=== PATIENT | male | born 1985 | race Caucasian/White ===

== ENCOUNTER 2017-08-26 05:46 | Inpatient (IN) | payer OTHER ==
[2017-08-22 12:01] VITALS: BMI 25.4
[2017-08-26] MEDS ORDERED: Bupivacaine HCl 0.25% PF (10 ml) Inj ONE (07:38)
[2017-08-26] MEDS ORDERED: Lidocaine 1% Inj (20ml) ONE (07:38)
[2017-08-26] MEDS ORDERED: Lactated Ringer's 1,000 ML IV ONE ×3 (07:45→10:45)
[2017-08-26] MEDS ORDERED: Midazolam 2 MG/2 ML VIAL ONE (07:49)
[2017-08-26] MEDS ORDERED: Lidocaine Hydrochloride 5 ML INJ ONE (07:49)
[2017-08-26] MEDS ORDERED: Propofol 10 mg/ml Inj (20 ML) ONE (07:49)
[2017-08-26] MEDS ORDERED: ceFAZolin IV 1 gm in Dextrose 1 GM/50 ML BAG IVPB ONE ×2 (08:25→11:56)
[2017-08-26] MEDS ORDERED: Phenylephrine 10 mg/ml Inj ONE (09:08)
[2017-08-26] MEDS ORDERED: ePHEDrine 50 mg/ml Inj ONE (09:08)
[2017-08-26] MEDS ORDERED: Bacitracin Ointment 30 GM TUBE ONE (09:27)
[2017-08-26] MEDS ORDERED: Neostigmine Methylsulfate 3mg/3ml Syringe IV ONE (10:30)
[2017-08-26] MEDS ORDERED: Bupivacaine 0.5% Inj(30mL) ONE (11:50)
--- NOTE | 2017-08-26 12:22 | PCM.SURG1 ---
Surgeon's Initial Post Op Note - Surgeon's Notes Surgeon: Dr. Abbott Textile Pin Worker: Chance Márquez PGY-3, Derrick Lopez PGY-3, Kvng Ac PGY-3 Type of Anesthesia: General LMA, Local Anesthesia Administered By: Dr. Cortez Pre-Operative Diagnosis: Right lower extremity Charcot deformity with equinus Operative Findings: See dictation Post-Operative Diagnosis: Same Operation Performed: #1. Right foot gastroc recession. #2. Right foot charcot reconstruction. #3. Right foot bone graft application. #4. RLE External fixator application Specimen/Specimens Removed: Right foot bone and soft tissue Estimated Blood Loss: EBL {In ML}: 30 Blood Products Given: N/A Drains Used: No Drains Post-Op Condition: Good Date of Surgery/Procedure: 08/26/17 Time of Surgery/Procedure: 08:00
[2017-08-26] MEDS ORDERED: HYDROmorphone 0.5 mg/0.5 ml ISec IVP PRN (13:14)
--- NOTE | 2017-08-26 14:03 | RAD ---
PROCEDURE: Right Ankle Radiographs. HISTORY: s/p Right ankle sx COMPARISON: None FINDINGS: BONES: There is an external fixation device overlying the distal tibia and foot. The device obscures the midfoot. JOINTS: Normal. No osteoarthritis. Ankle mortise maintained. Talar dome intact SOFT TISSUES: Normal. OTHER FINDINGS: None. IMPRESSION: There is an external fixation device overlying the distal tibia and foot. The device obscures the midfoot.
--- NOTE | 2017-08-26 14:09 | RAD ---
PROCEDURE: Fluoroscopy up to 1 hour HISTORY: CHRONIC CHARCOT RT FOOT DEFORMITY COMPARISON: TECHNIQUE: Fluoroscopy was provided in the operating room. 41.3 seconds of fluoro time were utilized. Fourteen images were submitted FINDINGS: The study shows placement of an external fixation device for treatment of severe chronic Charcot foot IMPRESSION: As above
--- NOTE | 2017-08-26 14:13 | RAD ---
PROCEDURE: Right Foot Radiographs. HISTORY: s/p Right foot sx COMPARISON: None. FINDINGS: BONES: There is an external fixation device around the foot which partially obscures the foot. There is a chronic Charcot deformity JOINTS: As above SOFT TISSUES: Normal. OTHER FINDINGS: None. IMPRESSION: There is an external fixation device around the foot which partially obscures the foot. There is a chronic Charcot deformity
[2017-08-26] MEDS ORDERED: Glucagon Recombinant 1 mg Inj IM PRN (14:47)
[2017-08-26] MEDS ORDERED: Dextrose 50% SYRINGE Inj (50 ml) IVP PRN (14:47)
[2017-08-26] MEDS ORDERED: Lactated Ringer's 500 ML IV ONE (16:00)
[2017-08-26] MEDS: (Novolog) Insulin Aspart, Recombinant 100 u/ml 10 ml vial SC SCH ×2 (16:30→22:49)
--- NOTE | 2017-08-26 17:12 | CP.PCM.HP ---
History of Present Illness - History of Present Illness History of Present Illness: CC: Hemostasis management S/p Right foot gastroc recession, Right foot charcot reconstruction, Right foot bone graft application, RLE External fixator application HPI: Patient is a 32 year old with past medical history of Type 1 DM who was admitted s/p Right foot gastroc recession, Right foot charcot reconstruction, Right foot bone graft application, RLE External fixator application, POD #1 for hemostasis and medical care. Patient was seen after his procedure in the PACU. Patient reports appropriate pain as he is status post surgical intervention. Patient denies chest pain, palpitations, SOB, dizziness, nausea, vomiting, right leg numbness and tingling. PMHx: Type 1 DM (Diagnosed at age 19) PSHx: Right foot diabetic ulcer FHx: Diabetes Medications: Insulin Glargine, Human recombination 10 unit SC BID, Lispro sliding scale, Vasotec 2.5mg pi daily, protonix 40mg po daily Allergies: NKDA Social Hx: unemployed, lives with family. Smoker (1/2 ppd, for many years, unable to recollect how many years), occasional marijuana use and denies ETOH use Present on Admission - Present on Admission Any Indicators Present on Admission: No Review of Systems - Constitutional Constitutional: absent: Chills, Fever - EENT Eyes: absent: Blurred Vision Ears: absent: Dizziness - Cardiovascular Cardiovascular: absent: Chest Pain, Dyspnea, Leg Edema, Lightheadedness, Palpitations - Respiratory Respiratory: absent: Cough, Wheezing - Gastrointestinal Gastrointestinal: absent: Abdominal Pain, Nausea, Vomiting - Neurological Neurological: absent: Dizziness, Numbness, Headaches, Paresthesias, Weakness - Endocrine Endocrine: absent: Palpitations Past Patient History - Past Medical History & Family History Past Medical History?: Yes - Past Social History Smoking Status: Current Some Days Smoker - CARDIAC Hx Cardiac Disorders: No - PULMONARY Hx Respiratory Disorders: No - NEUROLOGICAL Hx Neurological Disorder: No - HEENT Hx HEENT Problems: No - RENAL Hx Chronic Kidney Disease: No - ENDOCRINE/METABOLIC Hx Endocrine Disorders: Yes Hx Diabetes Mellitus Type 1: Yes - HEMATOLOGICAL/ONCOLOGICAL Hx Blood Disorders: No - INTEGUMENTARY Hx Dermatological Problems: Yes Other/Comment: diabetic lt foot ulcer - MUSCULOSKELETAL/RHEUMATOLOGICAL Hx Musculoskeletal Disorders: Yes Other/Comment: HX: RIGHT FOOT CHARCOT - GASTROINTESTINAL Hx Gastrointestinal Disorders: No Other/Comment: HX: NAUSEA FROM PAIN MED. - GENITOURINARY/GYNECOLOGICAL Hx Genitourinary Disorders: No - PSYCHIATRIC Hx Psychophysiologic Disorder: No Hx Substance Use: Yes - SURGICAL HISTORY Hx Surgeries: Yes Other/Comment: DEBRIDEMENT OF RIGHT FOOT WOUNDS X2-BOTTOM OF FOOOT AND OUTER SIDE OF FOOT. - ANESTHESIA Hx Anesthesia: Yes Hx Anesthesia Reactions: No Hx Malignant Hyperthermia: No Has any member of the family had a problem w/ anesthesia?: No Meds Allergies/Adverse Reactions: Allergies Allergy/AdvReac Type Severity Reaction Status Date / Time No Known Allergies Allergy Verified 08/22/17 12:01 Physical Exam - Head Exam Head Exam: ATRAUMATIC - Eye Exam Eye Exam: EOMI, Normal appearance - Respiratory Exam Respiratory Exam: Clear to Auscultation Bilateral, NORMAL BREATHING PATTERN - Cardiovascular Exam Cardiovascular Exam: REGULAR RHYTHM, +S1, +S2 - Extremities Exam Extremities exam: Positive for: tenderness Additional comments: S/p Right foot gastroc recession, Right foot charcot reconstruction, Right foot bone graft application, RLE External fixator application, POD #1. Dressing and entrapment in place. dressing is clean, dry and intact - Neurological Exam Neurological exam: Alert, Oriented x3 - Psychiatric Exam Psychiatric exam: Normal Affect, Normal Mood - Skin Skin Exam: Normal Color Results - Vital Signs Recent Vital Signs: Last Vital Signs Temp 97.0 F L 08/26/17 12:17 Pulse 99 H 08/26/17 16:00 Resp 15 08/26/17 16:00 BP 146/90 08/26/17 16:00 Pulse Ox 100 08/26/17 16:00 - Labs Labs: Laboratory Results - last 24 hr 08/26/17 08/26/17 06:31 16:25 POC Glucose (mg/dL) 173 H 246 H Assessment & Plan (1) Status post right foot surgery Assessment and Plan: Fur Glosser, Dr. Márquez---> on board Charcot foot S/p Right foot gastroc recession, Right foot charcot reconstruction, Right foot bone graft application, RLE External fixator application, POD #1 Medication/Management: * Percocet 1 tab PO Q4H PRN and 2 tab PO Q4H PRN * Podiatry team for daily dressing Status: Acute (2) Type 1 diabetes mellitus Assessment and Plan: Accuchecks Lantus 10 units SC Q12H Novolog 4 unit SC ACHS Hypoglycemia protocol Vasotec 2.5mg PO daily Status: Acute (3) Prophylactic measure Assessment and Plan: GI: Protonix 40mg po daily DVT: Eliquis 5mg po daily Heart healthy diabetic diet PT Status: Acute
[2017-08-26] MEDS: Oxycodone/Acetaminophen 5/325 mg Tab PO PRN ×2 (18:06→21:25)
[2017-08-26] MEDS: (Lantus) Insulin Glargine, Recombinant SC SCH (21:25)
[2017-08-27 08:26] LABS: BASO % 0.2 % (0.0-2.0); EOS # 0.1 K/uL (0.0-0.7); EOS % 0.9 % (0.0-4.0); HEMATOCRIT 33.2 % (35.0-51.0); LYMPH % 23.5 % (20.0-40.0); MEAN CORPUSCULAR HEMOGLOBIN 27.1 pg (27.0-31.0); MEAN CORPUSCULAR HGB CONC 33.1 g/dL (33.0-37.0); MONO # 0.8 K/uL (0.0-0.8); NRBC % 0.1 % (0.0-2.0); RED CELL DISTRIBUTION WIDTH 17.1 % (11.5-14.5); WHITE BLOOD COUNT 8.4 K/uL (4.8-10.8)
[2017-08-27] MEDS: (Novolog) Insulin Aspart, Recombinant 100 u/ml 10 ml vial SC SCH ×4 (09:07→22:38)
[2017-08-27 09:20] LABS: ALB/GLOB RATIO 0.7 (1.0-2.1); ALKALINE PHOSPHATASE 129 U/L (38-126); ALT/SGPT 25 U/L (21-72); AST/SGOT 18 U/L (17-59); BILIRUBIN,TOTAL 0.5 mg/dL (0.2-1.3); BLOOD UREA NITROGEN 15 mg/dL (9-20); CALCIUM 8.1 mg/dl (8.6-10.4); CARBON DIOXIDE 25 mmol/L (22-30); CHLORIDE 99 mmol/L (98-107); GFR AFRICAN-AMERICAN > 60; GLUCOSE,RANDOM 116 mg/dL (75-110); MAGNESIUM 1.7 mg/dL (1.6-2.3); PHOSPHOROUS 3.6 mg/dL (2.5-4.5); POTASSIUM 4.1 mmol/L (3.6-5.2); SODIUM 131 mmol/L (132-148); TOTAL PROTEIN 8.5 g/dL (6.3-8.3)
[2017-08-27] MEDS: (Lantus) Insulin Glargine, Recombinant SC SCH ×2 (10:08→22:37)
[2017-08-27] MEDS: Pantoprazole 40 mg EC Tab PO SCH (10:08)
[2017-08-27] MEDS: Oxycodone/Acetaminophen 5/325 mg Tab PO PRN ×4 (10:13→22:39)
[2017-08-27] MEDS ORDERED: Tramadol 25 mg PO PRN ×3 (11:01→13:38)
--- NOTE | 2017-08-27 11:31 | CP.PCM.PN ---
Subjective - Date & Time of Evaluation Date of Evaluation: 08/27/17 Time of Evaluation: 10:35 - Subjective Subjective: Podiatry Progress Note- Dr. Tavarez This is a 32 yo diabetic male pt seen at bedside this AM POD#1 RLE gastroc recession and charcot reconstruction w/ application of external fixator frame. Pt is seen resting comfortably in bed at time of visit with RLE elevated on pillows. Pt denies any acute overnight events. Pain controlled with ultram. Denies fever however did have 1 read of low grade fever overnight (resolved). Denies n/v/c/sob/cp/weakness/dizziness or calf pain. Tolerating diet. Offers no other complaints. Objective - Vital Signs/Intake and Output Vital Signs (last 24 hours): Temp Pulse Resp BP Pulse Ox 97.7 F 89 20 141/87 97 08/27/17 07:20 08/27/17 07:20 08/27/17 07:20 08/27/17 10:08 08/27/17 07:20 Intake and Output: 08/27/17 08/27/17 06:59 18:59 Output Total 900 Balance -900 - Medications Medications: Current Medications Acetaminophen (Tylenol 325mg Tab) 650 mg PO Q6 PRN PRN Reason: Pain, Mild (1-3) Last Admin: 08/26/17 16:38 Dose: 650 mg Apixaban (Eliquis) 2.5 mg PO Q12H [facility] Last Admin: 08/27/17 09:06 Dose: 2.5 mg Dextrose (Dextrose 50% Inj) 0 ml IVP .STAT PRN; Protocol PRN Reason: Hypoglycemia Protocol Dextrose (Glutose 15) 0 gm PO .ONCE PRN; Protocol PRN Reason: Hypoglycemia Protocol Enalapril Maleate (Vasotec) 2.5 mg PO DAILY [facility] Last Admin: 08/27/17 10:08 Dose: 2.5 mg Glucagon (Glucagen Diagnostic Kit) 0 mg IM .STAT PRN; Protocol PRN Reason: Hypoglycemia Protocol Dextrose (Dextrose 5% In Water 1000 Ml) 1,000 mls @ 0 mls/hr IV .Q0M PRN; Protocol; Per Protocol PRN Reason: Hypoglycemia Protocol Insulin Aspart (Novolog) 4 unit SC ACHS [facility] Last Admin: 08/27/17 09:07 Dose: 4 unit Insulin Glargine (Lantus) 10 unit SC Q12 [facility] Last Admin: 08/27/17 10:08 Dose: 10 units Ondansetron HCl (Zofran Inj) 4 mg IVP Q6H PRN PRN Reason: Nausea/Vomiting Pantoprazole Sodium (Protonix Ec Tab) 40 mg PO DAILY [facility] Last Admin: 08/27/17 10:08 Dose: 40 mg Pneumococcal Polyvalent Vaccine (Pneumovax 23 Vaccine) 0.5 ml IM .ONCE ONE Stop: 08/29/17 10:01 Tramadol HCl (Ultram) 50 mg PO PRN PRN PRN Reason: Pain, moderate (4-7) - Labs Labs: 08/27/17 08:13 08/27/17 08:13 - Constitutional Appears: Well, Non-toxic, No Acute Distress - Extremities Exam Additional comments: RLE focused exam: Dressings are c/d/i with external fixator in place, slight sanguinous drainage noted upon removal of bandage, no active bleeding VASC- pedal pulses palpable, skin temp runs warm to cool (proximal to distal), cap refill < 3 sec to all digits, moderate pedal edema NEURO- pedal sensation is grossly diminished DERM- pin sites appear clean with minimal drainage, no erythema, no callor, no areas of fluctuance ORTHO- tenderness on palpation of all pins sites and posterior aspect of heel - Neurological Exam Neurological Exam: Alert, Awake, Oriented x3 - Psychiatric Exam Psychiatric exam: Normal Affect, Normal Mood Assessment and Plan - Assessment and Plan (Free Text) Assessment: 32 you diabetic male pt POD#1 RLE gastroc recession and charcot reconstruction w / application of external fixator frame Plan: Pt S&E at bedside Chart, labs and vitals reviewed Pin sites inspected, dressing changed with xeroform to pin sites, 4x4's, ABD, kerlix, ROGER bandages Strict NWB to RLE PT eval ordered, will f/u rec's c/w Tylenol and Ultram for pain Elevate RLE and ice Case management consult placed for discharge planning to [facility] per podiatry
[2017-08-27] MEDS ORDERED: Oxycodone/Acetaminophen 5/325 mg Tab PO PRN (15:16)
--- NOTE | 2017-08-27 15:59 | CP.PCM.PN ---
Subjective - Date & Time of Evaluation Date of Evaluation: 08/27/17 Time of Evaluation: 07:00 - Subjective Subjective: Progress note for Dr. Espino Patient seen and examined at bedside. No acute events overnight. Patient states he tolerated the procedure well and still would like more pain medication. Patient stated that the tramadol helped. it was explained to the patient that podiatry team will manage the pain medication. Patient denies any fever, or chills, or abdominal pain. upon rounding with attending, patient was able to ambulate with physical therapy Objective - Vital Signs/Intake and Output Vital Signs (last 24 hours): Temp Pulse Resp BP Pulse Ox 97.9 F 82 18 102/68 99 08/27/17 15:25 08/27/17 15:25 08/27/17 15:25 08/27/17 15:25 08/27/17 15:25 Intake and Output: 08/27/17 08/27/17 06:59 18:59 Intake Total 480 Output Total 900 Balance -900 480 - Medications Medications: Current Medications Acetaminophen (Tylenol 325mg Tab) 650 mg PO Q6 PRN PRN Reason: Pain, Mild (1-3) Last Admin: 08/26/17 16:38 Dose: 650 mg Apixaban (Eliquis) 2.5 mg PO Q12H [facility] Last Admin: 08/27/17 09:06 Dose: 2.5 mg Dextrose (Dextrose 50% Inj) 0 ml IVP .STAT PRN; Protocol PRN Reason: Hypoglycemia Protocol Dextrose (Glutose 15) 0 gm PO .ONCE PRN; Protocol PRN Reason: Hypoglycemia Protocol Enalapril Maleate (Vasotec) 2.5 mg PO DAILY [facility] Last Admin: 08/27/17 10:08 Dose: 2.5 mg Glucagon (Glucagen Diagnostic Kit) 0 mg IM .STAT PRN; Protocol PRN Reason: Hypoglycemia Protocol Dextrose (Dextrose 5% In Water 1000 Ml) 1,000 mls @ 0 mls/hr IV .Q0M PRN; Protocol; Per Protocol PRN Reason: Hypoglycemia Protocol Insulin Aspart (Novolog) 4 unit SC ACHS [facility] Last Admin: 08/27/17 13:17 Dose: 4 unit Insulin Glargine (Lantus) 10 unit SC Q12 [facility] Last Admin: 08/27/17 10:08 Dose: 10 units Ondansetron HCl (Zofran Inj) 4 mg IVP Q6H PRN PRN Reason: Nausea/Vomiting Oxycodone/Acetaminophen (Percocet 5/325 Mg Tab) 1 tab PO Q4H PRN PRN Reason: Pain, moderate (4-7) Stop: 08/30/17 15:17 Oxycodone/Acetaminophen (Percocet 5/325 Mg Tab) 2 tab PO Q4H PRN PRN Reason: Pain, severe (8-10) Stop: 08/30/17 15:17 Last Admin: 08/27/17 15:32 Dose: 2 tab Pantoprazole Sodium (Protonix Ec Tab) 40 mg PO DAILY [facility] Last Admin: 08/27/17 10:08 Dose: 40 mg Pneumococcal Polyvalent Vaccine (Pneumovax 23 Vaccine) 0.5 ml IM .ONCE ONE Stop: 08/29/17 10:01 - Labs Labs: 08/27/17 08:13 08/27/17 08:13 - Constitutional Appears: Non-toxic - Eye Exam Eye Exam: EOMI, Normal appearance - ENT Exam ENT Exam: Mucous Membranes Moist - Neck Exam Neck Exam: Full ROM - Respiratory Exam Respiratory Exam: Wheezes - Cardiovascular Exam Cardiovascular Exam: +S1, +S2. absent: Bradycardia, Tachycardia - GI/Abdominal Exam GI & Abdominal Exam: Soft. absent: Tenderness - Extremities Exam Extremities Exam: absent: Full ROM, Pedal Edema Additional comments: right leg fixation patient was able to ambulate with physical therapy Assessment and Plan - Assessment and Plan (Free Text) Assessment: (1) Status post right foot surgery Assessment and Plan: Mobile Unit Assistant, Dr. Márquez---> on board Charcot foot S/p Right foot gastroc recession, Right foot charcot reconstruction, Right foot bone graft application, RLE External fixator application, POD #1 Medication/Management: * Percocet 1 tab PO Q4H PRN and 2 tab PO Q4H PRN * Podiatry team for daily dressing Monitor H/Hs Incentive spirometer at bedside (2) Type 1 diabetes mellitus Assessment and Plan: Accuchecks Lantus 10 units SC Q12H Novolog 4 unit SC ACHS Hypoglycemia protocol Vasotec 2.5mg PO daily Status: Acute (3) Prophylactic measure Assessment and Plan: GI: Protonix 40mg po daily DVT: Eliquis 2.5mg po Q12H per post operative protocol Heart healthy diabetic diet PT eval and treat Milena Rosenbaum, PGY1
--- NOTE | 2017-08-28 07:47 | CP.PCM.PN ---
Addendum entered and electronically signed by Milena Rosenbaum DO 08/28/17 16:18: due to insurance conflict, patient is unable to be transferred to rehab today. Discharge order was cancelled. Insurance company office will be open Saturday. Patient is to stay in the hospital until transfer. Original Note: <Milena Rosenbaum - Last Filed: 08/28/17 15:49> Subjective - Date & Time of Evaluation Date of Evaluation: 08/28/17 Time of Evaluation: 07:43 - Subjective Subjective: Progress note for Dr. Shepard Patient seen and examined at bedside. No acute events overnight. Patient states he tolerated the procedure well and still would like more pain medication. Patient stated that he was placed on tramadol yesterday but decided to switch back to percocet unless pain management changes his pain medication. Patient denies any fever, or chills, or abdominal pain. upon rounding with attending, patient was able to ambulate with crutches yesterday without any problem. Incentive spirometer seen at bedside. Patient demonstrated use of incentive spirometer. Patient stated he didn't like to use it because it made him cough. discussed with patient the importance of using the incentive spirometer for postoperative care. Objective - Vital Signs/Intake and Output Vital Signs (last 24 hours): Temp Pulse Resp BP Pulse Ox 99.7 F H 93 H 20 124/72 96 08/27/17 23:10 08/27/17 23:10 08/27/17 23:10 08/27/17 23:10 08/27/17 23:10 - Medications Medications: Current Medications Acetaminophen (Tylenol 325mg Tab) 650 mg PO Q6 PRN PRN Reason: Pain, Mild (1-3) Last Admin: 08/26/17 16:38 Dose: 650 mg Apixaban (Eliquis) 2.5 mg PO Q12H [facility] Last Admin: 08/27/17 22:37 Dose: 2.5 mg Dextrose (Dextrose 50% Inj) 0 ml IVP .STAT PRN; Protocol PRN Reason: Hypoglycemia Protocol Dextrose (Glutose 15) 0 gm PO .ONCE PRN; Protocol PRN Reason: Hypoglycemia Protocol Enalapril Maleate (Vasotec) 2.5 mg PO DAILY [facility] Last Admin: 08/27/17 10:08 Dose: 2.5 mg Glucagon (Glucagen Diagnostic Kit) 0 mg IM .STAT PRN; Protocol PRN Reason: Hypoglycemia Protocol Dextrose (Dextrose 5% In Water 1000 Ml) 1,000 mls @ 0 mls/hr IV .Q0M PRN; Protocol; Per Protocol PRN Reason: Hypoglycemia Protocol Insulin Aspart (Novolog) 4 unit SC ACHS [facility] Last Admin: 08/27/17 22:38 Dose: Not Given Insulin Glargine (Lantus) 10 unit SC Q12 [facility] Last Admin: 08/27/17 22:37 Dose: 10 units Ondansetron HCl (Zofran Inj) 4 mg IVP Q6H PRN PRN Reason: Nausea/Vomiting Oxycodone/Acetaminophen (Percocet 5/325 Mg Tab) 1 tab PO Q4H PRN PRN Reason: Pain, moderate (4-7) Stop: 08/30/17 15:17 Oxycodone/Acetaminophen (Percocet 5/325 Mg Tab) 2 tab PO Q4H PRN PRN Reason: Pain, severe (8-10) Stop: 08/30/17 15:17 Last Admin: 08/27/17 22:39 Dose: 2 tab Pantoprazole Sodium (Protonix Ec Tab) 40 mg PO DAILY [facility] Last Admin: 08/27/17 10:08 Dose: 40 mg Pneumococcal Polyvalent Vaccine (Pneumovax 23 Vaccine) 0.5 ml IM .ONCE ONE Stop: 08/29/17 10:01 - Labs Labs: 08/27/17 08:13 08/27/17 08:13 - Constitutional Appears: Non-toxic - Head Exam Head Exam: NORMAL INSPECTION - Eye Exam Eye Exam: EOMI, Normal appearance - ENT Exam ENT Exam: Mucous Membranes Moist - Neck Exam Neck Exam: Full ROM - Respiratory Exam Respiratory Exam: NORMAL BREATHING PATTERN. absent: Accessory Muscle Use - Cardiovascular Exam Cardiovascular Exam: REGULAR RHYTHM, +S1, +S2. absent: Bradycardia, Tachycardia - Extremities Exam Extremities Exam: absent: Pedal Edema Additional comments: right foot is fixed with pins. Dressings in place c/d/i - Neurological Exam Neurological Exam: Alert, Awake - Psychiatric Exam Psychiatric exam: Normal Affect, Normal Mood - Skin Skin Exam: Dry, Intact Assessment and Plan - Assessment and Plan (Free Text) Assessment: (1) Status post right foot surgery POD#2 Clinical Research Technician, Dr. Márquez Charcot foot S/p Right foot gastroc recession, Right foot charcot reconstruction, Right foot bone graft application, RLE External fixator application, POD #1 Medication/Management: * Percocet 1 tab PO Q4H PRN and 2 tab PO Q4H PRN * Podiatry team for daily dressing Monitor H/Hs Incentive spirometer at bedside (2) Type 1 diabetes mellitus Assessment and Plan: Accuchecks Lantus 10 units SC Q12H Novolog 4 unit SC ACHS Hypoglycemia protocol Vasotec 2.5mg PO daily Status: Acute (3) Prophylactic measure Assessment and Plan: GI: Protonix 40mg po daily DVT: Eliquis 2.5mg po Q12H per post operative protocol Heart healthy diabetic diet PT eval and treat Dispo: Patient did not get approved for transfer to rehab. Insurance company will be closed until Saturday. Patient will not be discharged until Saturday Milena Rosenbaum, PGY1 <Ethel Shepard V - Last Filed: 08/28/17 16:32> Objective - Vital Signs/Intake and Output Vital Signs (last 24 hours): Temp Pulse Resp BP Pulse Ox 98.4 F 83 20 112/70 99 08/28/17 16:00 08/28/17 16:00 08/28/17 16:00 08/28/17 16:00 08/28/17 16:00 Intake and Output: 08/28/17 08/28/17 06:59 18:59 Intake Total 120 Balance 120 - Medications Medications: Current Medications Acetaminophen (Tylenol 325mg Tab) 650 mg PO Q6 PRN PRN Reason: Pain, Mild (1-3) Last Admin: 08/26/17 16:38 Dose: 650 mg Apixaban (Eliquis) 2.5 mg PO Q12H [facility] Last Admin: 08/28/17 08:45 Dose: 2.5 mg Dextrose (Dextrose 50% Inj) 0 ml IVP .STAT PRN; Protocol PRN Reason: Hypoglycemia Protocol Dextrose (Glutose 15) 0 gm PO .ONCE PRN; Protocol PRN Reason: Hypoglycemia Protocol Enalapril Maleate (Vasotec) 2.5 mg PO DAILY [facility] Last Admin: 08/28/17 09:25 Dose: 2.5 mg Glucagon (Glucagen Diagnostic Kit) 0 mg IM .STAT PRN; Protocol PRN Reason: Hypoglycemia Protocol Dextrose (Dextrose 5% In Water 1000 Ml) 1,000 mls @ 0 mls/hr IV .Q0M PRN; Protocol; Per Protocol PRN Reason: Hypoglycemia Protocol Insulin Aspart (Novolog) 4 unit SC ACHS [facility] Last Admin: 08/28/17 13:23 Dose: 4 unit Insulin Glargine (Lantus) 10 unit SC Q12 [facility] Last Admin: 08/28/17 11:11 Dose: 10 units Ondansetron HCl (Zofran Inj) 4 mg IVP Q6H PRN PRN Reason: Nausea/Vomiting Oxycodone/Acetaminophen (Percocet 5/325 Mg Tab) 1 tab PO Q4H PRN PRN Reason: Pain, moderate (4-7) Stop: 08/30/17 15:17 Oxycodone/Acetaminophen (Percocet 5/325 Mg Tab) 2 tab PO Q4H PRN PRN Reason: Pain, severe (8-10) Stop: 08/30/17 15:17 Last Admin: 08/28/17 15:50 Dose: 2 tab Pantoprazole Sodium (Protonix Ec Tab) 40 mg PO DAILY [facility] Last Admin: 08/28/17 09:25 Dose: 40 mg Pneumococcal Polyvalent Vaccine (Pneumovax 23 Vaccine) 0.5 ml IM .ONCE ONE Stop: 08/29/17 10:01 - Labs Labs: 08/28/17 11:55 08/28/17 11:55 Attending/Attestation - Attestation I have personally seen and examined this patient.: Yes I have fully participated in the care of the patient.: Yes I have reviewed all pertinent clinical information, including history, physical exam and plan: Yes Notes (Text): Patient seen, examined and case discussed with day-time resident. Patient see at bedside. patient denies acute complaints except for pain over right foot when he bears weight. patient explained appropriate pain medication use as needed. patient reporting he only takes it at his 10/10 pain threshold instead of 7-8 range/10 scale. Per Podiatry, patient is stable for discharge to rehab facility. Discharge order was placed; however, later in the day case management discussed with resident, there is an error involving patient's insurance that cannot get rectified until the holiday is closed given the insurance office is about to close for the day and likely to be an issue until it can be rectified on Saturday. Asked resident to informed the podiatry service this latest development. Assessment/Plan (1) Status post right foot surgery POD#2 * Clinical Research Technician, Dr. De La Cruz and podiatry resident service * preoperative/intraoperative/postoperative per podiatry surgery service * right lower extremity charcot foot with equinus * -; S/p Right foot gastroc recession, Right foot charcot reconstruction , Right foot bone graft application, RLE External fixator application, POD #2 Medication/Management: * Percocet 5/325 1 tab PO Q4H PRN moderate pain and Percocet 5/325 2 tab PO Q4H PRN severe pain * Podiatry team for daily dressing * Monitor H/Hs * Incentive spirometer at bedside (2) Type 1 diabetes mellitus Assessment and Plan: * Accuchecks QAC and HS * Lantus 10 units SC Q12H * Novolog 4 unit SC ACHS * Hypoglycemia protocol * Vasotec 2.5mg PO daily Status: Acute (3) Prophylactic measure Assessment and Plan: * GI: Protonix 40mg po daily * DVT: Eliquis 2.5mg po Q12H per post operative protocol * Heart healthy diabetic diet * PT eval and treat Disposition: Patient did not get approved for transfer to rehab due to insurance error per discussion with case management. Insurance company will be closed until Saturday due to the en. Patient will not be discharged until Saturday. Patient is medically stable for discharge. Per podiatry , patient is stable from their standpoint for discharge.
[2017-08-28] MEDS: (Novolog) Insulin Aspart, Recombinant 100 u/ml 10 ml vial SC SCH ×4 (08:47→22:06)
[2017-08-28] MEDS: Pantoprazole 40 mg EC Tab PO SCH (09:25)
[2017-08-28] MEDS: Oxycodone/Acetaminophen 5/325 mg Tab PO PRN ×3 (11:09→22:38)
[2017-08-28] MEDS: (Lantus) Insulin Glargine, Recombinant SC SCH ×2 (11:11→22:06)
--- NOTE | 2017-08-28 11:58 | CP.PCM.PN ---
Subjective - Date & Time of Evaluation Date of Evaluation: 08/28/17 Time of Evaluation: 10:30 - Subjective Subjective: Podiatry Progress Note- Dr. Tavarez 32 yo diabetic male pt seen at bedside today POD#2 RLE gastroc recession and charcot reconstruction w/ application of external fixator frame. Pt seen resting comfortably in bed at time of visit. Says pain well-controlled with the percocet. Leg elevated on pillow. Doing well with physical therapy. Denies f/n/v /c/sob/cp/weakness, dizziness today. Offers no other complaints. Objective - Vital Signs/Intake and Output Vital Signs (last 24 hours): Temp Pulse Resp BP Pulse Ox 97.8 F 76 20 126/82 98 08/28/17 07:50 08/28/17 07:50 08/28/17 07:50 08/28/17 09:25 08/28/17 07:50 Intake and Output: 08/28/17 08/28/17 06:59 18:59 Intake Total 120 Balance 120 - Medications Medications: Current Medications Acetaminophen (Tylenol 325mg Tab) 650 mg PO Q6 PRN PRN Reason: Pain, Mild (1-3) Last Admin: 08/26/17 16:38 Dose: 650 mg Apixaban (Eliquis) 2.5 mg PO Q12H [facility] Last Admin: 08/28/17 08:45 Dose: 2.5 mg Dextrose (Dextrose 50% Inj) 0 ml IVP .STAT PRN; Protocol PRN Reason: Hypoglycemia Protocol Dextrose (Glutose 15) 0 gm PO .ONCE PRN; Protocol PRN Reason: Hypoglycemia Protocol Enalapril Maleate (Vasotec) 2.5 mg PO DAILY [facility] Last Admin: 08/28/17 09:25 Dose: 2.5 mg Glucagon (Glucagen Diagnostic Kit) 0 mg IM .STAT PRN; Protocol PRN Reason: Hypoglycemia Protocol Dextrose (Dextrose 5% In Water 1000 Ml) 1,000 mls @ 0 mls/hr IV .Q0M PRN; Protocol; Per Protocol PRN Reason: Hypoglycemia Protocol Insulin Aspart (Novolog) 4 unit SC ACHS [facility] Last Admin: 08/28/17 08:47 Dose: 4 unit Insulin Glargine (Lantus) 10 unit SC Q12 [facility] Last Admin: 08/28/17 11:11 Dose: 10 units Ondansetron HCl (Zofran Inj) 4 mg IVP Q6H PRN PRN Reason: Nausea/Vomiting Oxycodone/Acetaminophen (Percocet 5/325 Mg Tab) 1 tab PO Q4H PRN PRN Reason: Pain, moderate (4-7) Stop: 08/30/17 15:17 Oxycodone/Acetaminophen (Percocet 5/325 Mg Tab) 2 tab PO Q4H PRN PRN Reason: Pain, severe (8-10) Stop: 08/30/17 15:17 Last Admin: 08/28/17 11:09 Dose: 2 tab Pantoprazole Sodium (Protonix Ec Tab) 40 mg PO DAILY [facility] Last Admin: 08/28/17 09:25 Dose: 40 mg Pneumococcal Polyvalent Vaccine (Pneumovax 23 Vaccine) 0.5 ml IM .ONCE ONE Stop: 08/29/17 10:01 - Labs Labs: 08/27/17 08:13 08/27/17 08:13 - Constitutional Appears: Well, Non-toxic, No Acute Distress - Extremities Exam Extremities Exam: absent: Calf Tenderness Additional comments: RLE: dressing is c/d/i, no strikethrough, external fixator in place able to wiggle toes, no calf pain - Neurological Exam Neurological Exam: Alert, Awake, Oriented x3 - Psychiatric Exam Psychiatric exam: Normal Affect, Normal Mood Assessment and Plan - Assessment and Plan (Free Text) Assessment: 32 you diabetic male pt POD#2 RLE gastroc recession and charcot reconstruction w / application of external fixator frame Plan: Pt S&E at bedside Chart, labs and vitals reviewed Plan discussed w/ attending Dr. Tavarez PT recommending crutches and discharge to rehab c/w strict NWB to RLE Pending discharge to [facility] Dressings changes every 3 days: xeroform, DSD, kerlix, ROGER bandage Dr. Menjivar will be following pt at [facility] c/w tylenol & percocet for pain Elevate RLE and ice Stable for discharge per podiatry
[2017-08-28 12:03] LABS: BASO % 0.3 % (0.0-2.0); EOS # 0.1 K/uL (0.0-0.7); EOS % 0.9 % (0.0-4.0); HEMATOCRIT 30.9 % (35.0-51.0); LYMPH # 1.9 K/uL (1.0-4.3); LYMPH % 26.4 % (20.0-40.0); MEAN CORPUSCULAR HEMOGLOBIN 26.1 pg (27.0-31.0); MEAN CORPUSCULAR HGB CONC 31.8 g/dL (33.0-37.0); MEAN PLATELET VOLUME 8.3 fL (7.2-11.7); MONO # 0.7 K/uL (0.0-0.8); MONO % 10.6 % (0.0-10.0); RED CELL DISTRIBUTION WIDTH 16.9 % (11.5-14.5); WHITE BLOOD COUNT 7.1 K/uL (4.8-10.8)
--- NOTE | 2017-08-28 12:27 | CP.PCM.DIS ---
Provider - Provider Date of Admission: 08/26/17 05:46 Attending physician: Walt Abbott DPM Primary care physician: Jose Ramon So MD Consults: Podiatry Dr. Abbott Time Spent in preparation of Discharge (in minutes): 35 Hospital Course - Lab Results Lab Results: Most Recent Lab Values WBC 7.1 K/uL (4.8-10.8) 08/28/17 11:55 RBC 3.76 Mil/uL (4.40-5.90) L 08/28/17 11:55 Hgb 9.8 g/dL (12.0-18.0) L 08/28/17 11:55 Hct 30.9 % (35.0-51.0) L 08/28/17 11:55 MCV 82.0 fL (80.0-94.0) 08/28/17 11:55 MCH 26.1 pg (27.0-31.0) L 08/28/17 11:55 MCHC 31.8 g/dL (33.0-37.0) L 08/28/17 11:55 RDW 16.9 % (11.5-14.5) H 08/28/17 11:55 Plt Count 312 K/uL (130-400) 08/28/17 11:55 MPV 8.3 fL (7.2-11.7) 08/28/17 11:55 Neut % (Auto) 61.8 % (50.0-75.0) 08/28/17 11:55 Lymph % (Auto) 26.4 % (20.0-40.0) 08/28/17 11:55 Lipscomb % (Auto) 10.6 % (0.0-10.0) H 08/28/17 11:55 Eos % (Auto) 0.9 % (0.0-4.0) 08/28/17 11:55 Baso % (Auto) 0.3 % (0.0-2.0) 08/28/17 11:55 Neut # 4.4 K/uL (1.8-7.0) 08/28/17 11:55 Lymph # 1.9 K/uL (1.0-4.3) 08/28/17 11:55 Lipscomb # 0.7 K/uL (0.0-0.8) 08/28/17 11:55 Eos # 0.1 K/uL (0.0-0.7) 08/28/17 11:55 Baso # 0.0 K/uL (0.0-0.2) 08/28/17 11:55 Sodium 131 mmol/L (132-148) L 08/27/17 08:13 Potassium 4.1 mmol/L (3.6-5.2) 08/27/17 08:13 Chloride 99 mmol/L (98-107) 08/27/17 08:13 Carbon Dioxide 25 mmol/L (22-30) 08/27/17 08:13 Anion Gap 12 (-20) 08/27/17 08:13 BUN 15 mg/dL (9-20) 08/27/17 08:13 Creatinine 0.8 mg/dL (0.8-1.5) 08/27/17 08:13 Est GFR ( Amer) > 60 08/27/17 08:13 Est GFR (Non-Af Amer) > 60 08/27/17 08:13 POC Glucose (mg/dL) 159 mg/dL (65-110) H 08/28/17 12:15 Random Glucose 116 mg/dL (75-110) H 08/27/17 08:13 Calcium 8.1 mg/dl (8.6-10.4) L 08/27/17 08:13 Phosphorus 3.6 mg/dL (2.5-4.5) 08/27/17 08:13 Magnesium 1.7 mg/dL (1.6-2.3) 08/27/17 08:13 Total Bilirubin 0.5 mg/dL (0.2-1.3) 08/27/17 08:13 AST 18 U/L (17-59) 08/27/17 08:13 ALT 25 U/L (21-72) 08/27/17 08:13 Alkaline Phosphatase 129 U/L (38-126) H 08/27/17 08:13 Total Protein 8.5 g/dL (6.3-8.3) H 08/27/17 08:13 Albumin 3.5 g/dL (3.5-5.0) D 08/27/17 08:13 Globulin 4.9 gm/dL (2.2-3.9) H 08/27/17 08:13 Albumin/Globulin Ratio 0.7 (1.0-2.1) L 08/27/17 08:13 - Hospital Course Hospital Course: CC: Hemostasis management S/p Right foot gastroc recession, Right foot charcot reconstruction, Right foot bone graft application, RLE External fixator application HPI: Patient is a 32 year old with past medical history of Type 1 DM who was admitted s/p Right foot gastroc recession, Right foot charcot reconstruction, Right foot bone graft application, RLE External fixator application, POD #1 for hemostasis and medical care. Patient was seen after his procedure in the PACU. Patient reports appropriate pain as he is status post surgical intervention. Patient denies chest pain, palpitations, SOB, dizziness, nausea, vomiting, right leg numbness and tingling. 08/26 fluoroscopy: study placement of an external fixation device for treatment of severe chronic charcotfoot 08/26 foot and Ankle 3 views: no osteoarthriis. external fixation device in place POD#2 RLE gastroc recession and charcot reconstruction w/ application of external fixator frame. Patient seen and examined at bedside. No acute events overnight. Patient states he tolerated the procedure well and still would like more pain medication. Patient stated that he was placed on tramadol yesterday but decided to switch back to percocet unless pain management changes his pain medication. Patient denies any fever, or chills, or abdominal pain. upon rounding with attending, patient was able to ambulate with crutches yesterday without any problem. Incentive spirometer seen at bedside. Patient demonstrated use of incentive spirometer. Patient stated he didn't like to use it because it made him cough. discussed with patient the importance of using the incentive spirometer for postoperative care. Podiatry team and medicine team state patient is medically stable for discharge. Per podiatry team c/w tylenol & percocet for pain. Patient will be going to [facility] for rehab to follow up with Dr. Menjivar. - Date & Time of H&P Date of H&P: 08/28/17 Time of H&P: 12:26 Discharge Exam - Head Exam Head Exam: NORMAL INSPECTION - Eye Exam Eye Exam: EOMI, Normal appearance - ENT Exam ENT Exam: Mucous Membranes Moist - Neck Exam Neck exam: Full Rom - Respiratory Exam Respiratory Exam: absent: Accessory Muscle Use - Cardiovascular Exam Cardiovascular Exam: REGULAR RHYTHM, +S1, +S2 - Extremities Exam Extremities exam: full ROM Additional comments: external fixator in place. dressing is c/d/i no strikethrough bleeding capillary refill <2 seconds - Neurological Exam Neurological exam: Normal Gait - Psychiatric Exam Psychiatric exam: Normal Affect, Normal Mood - Skin Skin Exam: Dry, Intact Discharge Plan - Follow Up Plan Condition: FAIR Disposition: REHAB FACILITY/REHAB UNIT Patient education suggested?: Yes Additional Instructions: patient to be transferred to [facility] for physical therapy with percocet and tylenol for pain control to follow with Dr. Menjivar at [facility] Referrals: Walt Abbott DPM [Staff Provider] - Jose Ramon So MD [Primary Care Provider] -
[2017-08-28 12:52] LABS: ALKALINE PHOSPHATASE 117 U/L (38-126); ALT/SGPT 23 U/L (21-72); AST/SGOT 19 U/L (17-59); BILIRUBIN,TOTAL 0.6 mg/dL (0.2-1.3); BLOOD UREA NITROGEN 16 mg/dL (9-20); CALCIUM 8.1 mg/dl (8.6-10.4); CARBON DIOXIDE 27 mmol/L (22-30); CHLORIDE 97 mmol/L (98-107); GFR AFRICAN-AMERICAN > 60; GLUCOSE,RANDOM 157 mg/dL (75-110); POTASSIUM 4.1 mmol/L (3.6-5.2); SODIUM 132 mmol/L (132-148)
[2017-08-28 12:56] LABS: ALB/GLOB RATIO 0.9 (1.0-2.1)
[2017-08-29 02:20] VITALS: O2SAT 98
[2017-08-29] MEDS: (Novolog) Insulin Aspart, Recombinant 100 u/ml 10 ml vial SC SCH ×2 (08:13→12:31)
[2017-08-29] MEDS: Pantoprazole 40 mg EC Tab PO SCH (09:33)
[2017-08-29] MEDS: (Lantus) Insulin Glargine, Recombinant SC SCH (09:35)
[2017-08-29] MEDS: Oxycodone/Acetaminophen 5/325 mg Tab PO PRN ×2 (09:36→14:59)
[2017-08-29] MEDS ORDERED: Pneumococcal 23-Valent Vaccine IM ONE (10:00)
--- NOTE | 2017-08-29 11:28 | CP.PCM.PN ---
Subjective - Date & Time of Evaluation Date of Evaluation: 08/29/17 Time of Evaluation: 11:28 - Subjective Subjective: Podiatry Progress Note- Dr. Tavarez 32 y/o diabetic male pt seen at bedside today 3 days s/p right lower extremity gastroc recession and Charcot foot reconstructive surgery w/ application of external fixator frame. Pt seen resting comfortably in bed at time of visit. Pt says his pain is still moderate to severe, and is mostly controlled by Percocet. Pt expresses interest in having some kind of strong pain medicine to be discharged home with. Pt says he will be going home and having physical therapy come to his house. Pt denies F/C/N/V/CP/SOB today. Objective - Vital Signs/Intake and Output Vital Signs (last 24 hours): Temp Pulse Resp BP Pulse Ox 98 F 76 20 110/71 98 08/29/17 08:00 08/29/17 08:00 08/29/17 08:00 08/29/17 09:36 08/29/17 08:00 Intake and Output: 08/29/17 08/29/17 06:59 18:59 Intake Total 600 Output Total 650 Balance -50 - Medications Medications: Current Medications Acetaminophen (Tylenol 325mg Tab) 650 mg PO Q6 PRN PRN Reason: Pain, Mild (1-3) Last Admin: 08/26/17 16:38 Dose: 650 mg Apixaban (Eliquis) 2.5 mg PO Q12H [facility] Last Admin: 08/29/17 08:13 Dose: 2.5 mg Dextrose (Dextrose 50% Inj) 0 ml IVP .STAT PRN; Protocol PRN Reason: Hypoglycemia Protocol Dextrose (Glutose 15) 0 gm PO .ONCE PRN; Protocol PRN Reason: Hypoglycemia Protocol Last Admin: 08/28/17 21:40 Dose: 15 gm Enalapril Maleate (Vasotec) 2.5 mg PO DAILY [facility] Last Admin: 08/29/17 09:36 Dose: 2.5 mg Glucagon (Glucagen Diagnostic Kit) 0 mg IM .STAT PRN; Protocol PRN Reason: Hypoglycemia Protocol Dextrose (Dextrose 5% In Water 1000 Ml) 1,000 mls @ 0 mls/hr IV .Q0M PRN; Protocol; Per Protocol PRN Reason: Hypoglycemia Protocol Insulin Aspart (Novolog) 4 unit SC ACHS [facility] Last Admin: 08/29/17 08:13 Dose: 4 unit Insulin Glargine (Lantus) 10 unit SC Q12 [facility] Last Admin: 08/29/17 09:35 Dose: 10 units Ondansetron HCl (Zofran Inj) 4 mg IVP Q6H PRN PRN Reason: Nausea/Vomiting Oxycodone/Acetaminophen (Percocet 5/325 Mg Tab) 1 tab PO Q4H PRN PRN Reason: Pain, moderate (4-7) Stop: 08/30/17 15:17 Oxycodone/Acetaminophen (Percocet 5/325 Mg Tab) 2 tab PO Q4H PRN PRN Reason: Pain, severe (8-10) Stop: 08/30/17 15:17 Last Admin: 08/29/17 09:36 Dose: 2 tab Pantoprazole Sodium (Protonix Ec Tab) 40 mg PO DAILY [facility] Last Admin: 08/29/17 09:33 Dose: 40 mg - Labs Labs: 08/28/17 11:55 08/28/17 11:55 - Constitutional Appears: Well, Non-toxic, No Acute Distress - Extremities Exam Additional comments: RLE focused examination: Dressing to RLE is clean, dry and intact, no strikethrough noted, external fixator in place Pt is able to wiggle toes Pt denies calf pain - Neurological Exam Neurological Exam: Alert, Awake, Oriented x3 - Psychiatric Exam Psychiatric exam: Normal Affect, Normal Mood Assessment and Plan - Assessment and Plan (Free Text) Assessment: 32 y/o diabetic male pt 3 days s/p RLE gastroc recession and Charcot foot reconstruction w/ application of external fixator frame, secondary to diabetes mellitus with Charcot neuroarthropathy Plan: Pt seen and examined at bedside Discussed plan in detail with attending Dr. De La Cruz Chart, labs and vitals reviewed Pt is to continue strict NWB to RLE Due to insurance, pt not accepted to [facility] and will be discharged home with home PT/OT Dressings changes to be performed every 3 days: xeroform, DSD, kerlix, ROGER bandage Pt advised to reach out to his pain management doctor for stronger pain medications to be taken as outpatient Pt will follow up with Dr. De La Cruz in office Pt is stable for discharge per podiatry
--- NOTE | 2017-08-29 12:02 | CP.PCM.PN ---
Subjective - Date & Time of Evaluation Date of Evaluation: 08/29/17 Time of Evaluation: 11:55 - Subjective Subjective: Medical Attending Note: Patient seen and examined at bedside. Patient denies headache, denies chest pain, denies palpitations, denies abdominal pain, denies nausea, denies vomitting, denies diarrhea, denies constipation and mild pain over right lower extremity. Objective - Vital Signs/Intake and Output Vital Signs (last 24 hours): Temp Pulse Resp BP Pulse Ox 98 F 76 20 110/71 98 08/29/17 08:00 08/29/17 08:00 08/29/17 08:00 08/29/17 09:36 08/29/17 08:00 Intake and Output: 08/29/17 08/29/17 06:59 18:59 Intake Total 600 Output Total 650 Balance -50 - Medications Medications: Current Medications Acetaminophen (Tylenol 325mg Tab) 650 mg PO Q6 PRN PRN Reason: Pain, Mild (1-3) Last Admin: 08/26/17 16:38 Dose: 650 mg Apixaban (Eliquis) 2.5 mg PO Q12H [facility] Last Admin: 08/29/17 08:13 Dose: 2.5 mg Dextrose (Dextrose 50% Inj) 0 ml IVP .STAT PRN; Protocol PRN Reason: Hypoglycemia Protocol Dextrose (Glutose 15) 0 gm PO .ONCE PRN; Protocol PRN Reason: Hypoglycemia Protocol Last Admin: 08/28/17 21:40 Dose: 15 gm Enalapril Maleate (Vasotec) 2.5 mg PO DAILY [facility] Last Admin: 08/29/17 09:36 Dose: 2.5 mg Glucagon (Glucagen Diagnostic Kit) 0 mg IM .STAT PRN; Protocol PRN Reason: Hypoglycemia Protocol Dextrose (Dextrose 5% In Water 1000 Ml) 1,000 mls @ 0 mls/hr IV .Q0M PRN; Protocol; Per Protocol PRN Reason: Hypoglycemia Protocol Insulin Aspart (Novolog) 4 unit SC ACHS [facility] Last Admin: 08/29/17 08:13 Dose: 4 unit Insulin Glargine (Lantus) 10 unit SC Q12 [facility] Last Admin: 08/29/17 09:35 Dose: 10 units Ondansetron HCl (Zofran Inj) 4 mg IVP Q6H PRN PRN Reason: Nausea/Vomiting Oxycodone/Acetaminophen (Percocet 5/325 Mg Tab) 1 tab PO Q4H PRN PRN Reason: Pain, moderate (4-7) Stop: 08/30/17 15:17 Oxycodone/Acetaminophen (Percocet 5/325 Mg Tab) 2 tab PO Q4H PRN PRN Reason: Pain, severe (8-10) Stop: 08/30/17 15:17 Last Admin: 08/29/17 09:36 Dose: 2 tab Pantoprazole Sodium (Protonix Ec Tab) 40 mg PO DAILY [facility] Last Admin: 08/29/17 09:33 Dose: 40 mg - Labs Labs: 08/28/17 11:55 08/28/17 11:55 - Constitutional Appears: Non-toxic, No Acute Distress - Head Exam Head Exam: NORMAL INSPECTION - Eye Exam Eye Exam: EOMI - ENT Exam ENT Exam: Mucous Membranes Moist - Respiratory Exam Respiratory Exam: Clear to Ausculation Bilateral, NORMAL BREATHING PATTERN. absent: Rales, Rhonchi, Wheezes - Cardiovascular Exam Cardiovascular Exam: REGULAR RHYTHM, +S1, +S2 - GI/Abdominal Exam GI & Abdominal Exam: Soft, Normal Bowel Sounds. absent: Distended, Firm, Guarding, Rigid, Tenderness, Rebound - Extremities Exam Additional comments: right lower extremities-->hardware; wrapped c/d/i - Neurological Exam Neurological Exam: Alert, Awake, Oriented x3 Neuro motor strength exam: Left Upper Extremity: 5 - Skin Skin Exam: Dry, Intact, Normal Color, Warm Assessment and Plan - Assessment and Plan (Free Text) Assessment: Patient seen, examined and case discussed with day-time resident. Patient seen at bedside. patient denies acute complaints except for mild pain. Discussed with case management, will arrange with home with home services and transportation upon discharge. Patient to follow-up with podiatry upon discharge. Assessment/Plan (1) Status post right foot surgery POD#3 * Supervisor Histology, Dr. Abbott and podiatry resident service * preoperative/intraoperative/postoperative per podiatry surgery service * right lower extremity charcot foot with equinus * ; S/p Right foot gastroc recession, Right foot charcot reconstruction , Right foot bone graft application, RLE External fixator application, POD #3 Medication/Management: * Percocet 5/325 1 tab PO Q4H PRN moderate pain and Percocet 5/325 2 tab PO Q4H PRN severe pain * Podiatry team for daily dressing * Monitor H/Hs * Incentive spirometer at bedside (2) Type 1 diabetes mellitus Assessment and Plan: * Accuchecks QAC and HS * Lantus 10 units SC Q12H * Novolog 4 unit SC ACHS * Hypoglycemia protocol * Vasotec 2.5mg PO daily Status: Acute (3) Prophylactic measure Assessment and Plan: * GI: Protonix 40mg po daily * DVT: Eliquis 2.5mg po Q12H per post operative protocol * Heart healthy diabetic diet * PT eval and treat Disposition: Patient will be discharged home with home services and to follow- up with Dr. Abbott, podatriist upon discharge. Attending/Attestation - Attestation I have personally seen and examined this patient.: Yes I have fully participated in the care of the patient.: Yes I have reviewed all pertinent clinical information, including history, physical exam and plan: Yes
[2017-08-29 15:27] VITALS: BP 110/66; PULSE 77; RESP 18; TEMP 97.9
--- NOTE | 2017-08-29 19:24 | CP.PCM.DIS ---
<Milena Rosenbaum - Last Filed: 08/29/17 19:31> Provider - Provider Date of Admission: 08/26/17 05:46 Attending physician: Ethel Shepard DO Consults: Dr. De La Cruz Time Spent in preparation of Discharge (in minutes): 45 Hospital Course - Lab Results Lab Results: Most Recent Lab Values WBC 7.1 K/uL (4.8-10.8) 08/28/17 11:55 RBC 3.76 Mil/uL (4.40-5.90) L 08/28/17 11:55 Hgb 9.8 g/dL (12.0-18.0) L 08/28/17 11:55 Hct 30.9 % (35.0-51.0) L 08/28/17 11:55 MCV 82.0 fL (80.0-94.0) 08/28/17 11:55 MCH 26.1 pg (27.0-31.0) L 08/28/17 11:55 MCHC 31.8 g/dL (33.0-37.0) L 08/28/17 11:55 RDW 16.9 % (11.5-14.5) H 08/28/17 11:55 Plt Count 312 K/uL (130-400) 08/28/17 11:55 MPV 8.3 fL (7.2-11.7) 08/28/17 11:55 Neut % (Auto) 61.8 % (50.0-75.0) 08/28/17 11:55 Lymph % (Auto) 26.4 % (20.0-40.0) 08/28/17 11:55 Luna % (Auto) 10.6 % (0.0-10.0) H 08/28/17 11:55 Eos % (Auto) 0.9 % (0.0-4.0) 08/28/17 11:55 Baso % (Auto) 0.3 % (0.0-2.0) 08/28/17 11:55 Neut # 4.4 K/uL (1.8-7.0) 08/28/17 11:55 Lymph # 1.9 K/uL (1.0-4.3) 08/28/17 11:55 Luna # 0.7 K/uL (0.0-0.8) 08/28/17 11:55 Eos # 0.1 K/uL (0.0-0.7) 08/28/17 11:55 Baso # 0.0 K/uL (0.0-0.2) 08/28/17 11:55 Sodium 132 mmol/L (132-148) 08/28/17 11:55 Potassium 4.1 mmol/L (3.6-5.2) 08/28/17 11:55 Chloride 97 mmol/L (98-107) L 08/28/17 11:55 Carbon Dioxide 27 mmol/L (22-30) 08/28/17 11:55 Anion Gap 12 (-20) 08/28/17 11:55 BUN 16 mg/dL (9-20) 08/28/17 11:55 Creatinine 0.8 mg/dL (0.8-1.5) 08/28/17 11:55 Est GFR ( Amer) > 60 08/28/17 11:55 Est GFR (Non-Af Amer) > 60 08/28/17 11:55 POC Glucose (mg/dL) 344 mg/dL (65-110) H 08/29/17 11:36 Random Glucose 157 mg/dL (75-110) H 08/28/17 11:55 Calcium 8.1 mg/dl (8.6-10.4) L 08/28/17 11:55 Phosphorus 3.6 mg/dL (2.5-4.5) 08/27/17 08:13 Magnesium 1.7 mg/dL (1.6-2.3) 08/27/17 08:13 Total Bilirubin 0.6 mg/dL (0.2-1.3) 08/28/17 11:55 AST 19 U/L (17-59) 08/28/17 11:55 ALT 23 U/L (21-72) 08/28/17 11:55 Alkaline Phosphatase 117 U/L (38-126) 08/28/17 11:55 Total Protein 7.0 g/dL (6.3-8.3) 08/28/17 11:55 Albumin 3.3 g/dL (3.5-5.0) L 08/28/17 11:55 Globulin 3.7 gm/dL (2.2-3.9) 08/28/17 11:55 Albumin/Globulin Ratio 0.9 (1.0-2.1) L 08/28/17 11:55 - Hospital Course Hospital Course: CC: Hemostasis management S/p Right foot gastroc recession, Right foot charcot reconstruction, Right foot bone graft application, RLE External fixator application HPI: Patient is a 32 year old with past medical history of Type 1 DM who was admitted s/p Right foot gastroc recession, Right foot charcot reconstruction, Right foot bone graft application, RLE External fixator application, POD #1 for hemostasis and medical care. Patient was seen after his procedure in the PACU. Patient reports appropriate pain as he is status post surgical intervention. Patient denies chest pain, palpitations, SOB, dizziness, nausea, vomiting, right leg numbness and tingling. Hospital course. Patient was admitted for reconstruction with podiatry with management of surgery with podiatry. Medicine team managing type one diabetes. Patient tolerated procedure well. Imaging during procedure confirmed placement. POD#2 RLE gastroc recession and charcot reconstruction w/ application of external fixator frame. Patient seen and examined at bedside. No acute events overnight. Patient states he tolerated the procedure well and still would like more pain medication. Podiatry team and medicine team state patient is medically stable for discharge. Per manager intel patient is only eligible for home physical therapy. Per podiatry team c/w tylenol & percocet for pain. Patient will be treated with home physical therapy and to follow up with Dr. De La Cruz by saturday or saturday of next week (09/02, 09/03). Patient instructed risk of Eliquis with bleeding with falls and to return to ED if bleeding, extreme pain, infection, fever, chills Patient given following medications during discharge eliquis 2.5mg POBID #60 Percocet 5/325 1 tab Q4H PRN - Date & Time of H&P Date of H&P: 08/29/17 Time of H&P: 19:29 Discharge Exam - Head Exam Head Exam: NORMAL INSPECTION - Eye Exam Eye Exam: EOMI - Additional Findings Additional findings: Head Exam Head Exam: NORMAL INSPECTION - Eye Exam Eye Exam: EOMI, Normal appearance - ENT Exam ENT Exam: Mucous Membranes Moist - Neck Exam Neck exam: Full Rom - Respiratory Exam Respiratory Exam: absent: Accessory Muscle Use - Cardiovascular Exam Cardiovascular Exam: REGULAR RHYTHM, +S1, +S2 - Extremities Exam Extremities exam: full ROM Additional comments: external fixator in place. dressing is c/d/i no strikethrough bleeding capillary refill <2 seconds - Neurological Exam Neurological exam: Normal Gait - Psychiatric Exam Psychiatric exam: Normal Affect, Normal Mood - Skin Skin Exam: Dry, Intact Discharge Plan - Discharge Medications Prescriptions: Apixaban [Eliquis] 2.5 mg PO Q12H #60 tab oxyCODONE/Acetaminophen [Percocet 5/325 mg Tab] 1 tab PO Q4H PRN #20 tab PRN Reason: Pain, Moderate (4-7) - Follow Up Plan Condition: FAIR Disposition: HOME/ ROUTINE Instructions: Oxycodone/Acetaminophen (By mouth), Apixaban (By mouth), Pain Management After Surgery (DC), Surgical Site Infections (GEN), Non Weight Bearing Activity (DC) Additional Instructions: Patient stable for discharge home. Patient will be receiving home physical therapy. Please call and make an appointment with podiatry within a week. If any signs and symptoms suspicious for infection are noted please return to emergency room. Referrals: Walt De La Cruz DPM [Staff Provider] - Jose Ramon So MD [Family Provider] - <Ethel Shepard V - Last Filed: 08/30/17 14:22> Provider - Provider Date of Admission: 08/26/17 05:46 Attending physician: Ethel Shepard, Hospital Course - Lab Results Lab Results: Most Recent Lab Values WBC 7.1 K/uL (4.8-10.8) 08/28/17 11:55 RBC 3.76 Mil/uL (4.40-5.90) L 08/28/17 11:55 Hgb 9.8 g/dL (12.0-18.0) L 08/28/17 11:55 Hct 30.9 % (35.0-51.0) L 08/28/17 11:55 MCV 82.0 fL (80.0-94.0) 08/28/17 11:55 MCH 26.1 pg (27.0-31.0) L 08/28/17 11:55 MCHC 31.8 g/dL (33.0-37.0) L 08/28/17 11:55 RDW 16.9 % (11.5-14.5) H 08/28/17 11:55 Plt Count 312 K/uL (130-400) 08/28/17 11:55 MPV 8.3 fL (7.2-11.7) 08/28/17 11:55 Neut % (Auto) 61.8 % (50.0-75.0) 08/28/17 11:55 Lymph % (Auto) 26.4 % (20.0-40.0) 08/28/17 11:55 Luna % (Auto) 10.6 % (0.0-10.0) H 08/28/17 11:55 Eos % (Auto) 0.9 % (0.0-4.0) 08/28/17 11:55 Baso % (Auto) 0.3 % (0.0-2.0) 08/28/17 11:55 Neut # 4.4 K/uL (1.8-7.0) 08/28/17 11:55 Lymph # 1.9 K/uL (1.0-4.3) 08/28/17 11:55 Luna # 0.7 K/uL (0.0-0.8) 08/28/17 11:55 Eos # 0.1 K/uL (0.0-0.7) 08/28/17 11:55 Baso # 0.0 K/uL (0.0-0.2) 08/28/17 11:55 Sodium 132 mmol/L (132-148) 08/28/17 11:55 Potassium 4.1 mmol/L (3.6-5.2) 08/28/17 11:55 Chloride 97 mmol/L (98-107) L 08/28/17 11:55 Carbon Dioxide 27 mmol/L (22-30) 08/28/17 11:55 Anion Gap 12 (10-20) 08/28/17 11:55 BUN 16 mg/dL (9-20) 08/28/17 11:55 Creatinine 0.8 mg/dL (0.8-1.5) 08/28/17 11:55 Est GFR ( Amer) > 60 08/28/17 11:55 Est GFR (Non-Af Amer) > 60 08/28/17 11:55 POC Glucose (mg/dL) 344 mg/dL (65-110) H 08/29/17 11:36 Random Glucose 157 mg/dL (75-110) H 08/28/17 11:55 Calcium 8.1 mg/dl (8.6-10.4) L 08/28/17 11:55 Phosphorus 3.6 mg/dL (2.5-4.5) 08/27/17 08:13 Magnesium 1.7 mg/dL (1.6-2.3) 08/27/17 08:13 Total Bilirubin 0.6 mg/dL (0.2-1.3) 08/28/17 11:55 AST 19 U/L (17-59) 08/28/17 11:55 ALT 23 U/L (21-72) 08/28/17 11:55 Alkaline Phosphatase 117 U/L (38-126) 08/28/17 11:55 Total Protein 7.0 g/dL (6.3-8.3) 08/28/17 11:55 Albumin 3.3 g/dL (3.5-5.0) L 08/28/17 11:55 Globulin 3.7 gm/dL (2.2-3.9) 08/28/17 11:55 Albumin/Globulin Ratio 0.9 (1.0-2.1) L 08/28/17 11:55 Attending/Attestation - Attestation I have personally seen and examined this patient.: Yes I have fully participated in the care of the patient.: Yes I have reviewed all pertinent clinical information, including history, physical exam and plan: Yes Notes (Text): This is late computer entry for 08/29/17. Please refer to my progress note for full attending note. Patient seen, examined and case discussed with day-time resident day of discharge. Patient seen at bedside. patient denies acute complaints except for mild pain. Discussed with case management, will arrange with home with home services and transportation upon discharge. Per podiatry stable for discharge. Patient given 5 day supply of Percocet 5/325 1 tab PO Q4H PRN severe pain (20 tabs/0). Patient given one month supply of Eliquis 2.5mg PO BID (60/0) as prophylaxis post orthopedic procedure. Patient advised to follow-up with podiatry this upcoming Saturday or Saturday's in Dr. De La Cruz's office. Patient to resume insulin upon discharge. Patient advised regarding bleeding risk with Eliquis and advise if any falls/ bleed while on the medication to be evaluated by a doctor immediately/ go to the Emergency Room. Patient was advised by podiatry resident and myself if pain persist in spite of pain medication as needed to follow-up with a crayon painter. patient reports he understands and agrees. This is a summary of patient's hospitalization. Please refer to EMR for further details. Assessment/Plan (1) Status post right foot surgery POD#3 * Bass Fisher, Dr. De La Cruz and podiatry resident service * preoperative/intraoperative/postoperative per podiatry surgery service * Podiatry service: patient stable for discharge; discharge instructions per podiatry in relation to procedure per podiatry * right lower extremity charcot foot with equinus * -; S/p Right foot gastroc recession, Right foot charcot reconstruction , Right foot bone graft application, RLE External fixator application, POD #3 Medication/Management: * Percocet 5/325 1 tab PO Q4H PRN moderate pain and Percocet 5/325 2 tab PO Q4H PRN severe pain * 5 day supply of Percocet 5/325 1 tab PO Q4H PRN severe pain (20 tabs/0). * Podiatry team for daily dressing * Monitor H/Hs * Incentive spirometer at bedside (2) Type 1 diabetes mellitus Assessment and Plan: * Accuchecks QAC and HS * Lantus 10 units SC Q12H * Novolog 4 unit SC ACHS * Hypoglycemia protocol * Vasotec 2.5mg PO daily Status: Acute (3) Prophylactic measure Assessment and Plan: * GI: Protonix 40mg po daily * DVT: Eliquis 2.5mg po Q12H per post operative protocol * Eliquis 2.5mg PO BID (60/0) * Heart healthy diabetic diet * PT eval and treat Disposition: Patient will be discharged home with home services and to follow- up with Dr. De La Cruz, podatriist upon discharge.
--- NOTE | 2017-08-30 00:21 | OP ---
PROCEDURE DATE: 08/26/2017 PATIENT'S AGE: 32. PATIENT'S SEX: Male. SURGEON: Walt Tavarez DPM ASSISTANTS: Chance Márquez DPM, PGY-3; Kvng Ac DPM, PGY-3; Derrick Lopez DPM, PGY-3. SCORING MACHINE OPERATOR: Dr. Cortez. ANESTHESIA: General. PREOPERATIVE DIAGNOSES: 1. Right leg painful and symptomatic gastrocnemius equinus. 2. Right foot chronic Charcot deformity with complete midfoot collapse. POSTOPERATIVE DIAGNOSES: 1. Right leg painful and symptomatic gastrocnemius equinus. 2. Right foot chronic Charcot deformity with complete midfoot collapse. NAME OF THE PROCEDURE: 1. Right leg endoscopic gastrocnemius recession. 2. Right foot Charcot reconstruction of the midfoot with bone graft application. 3. Right lower extremity circular external fixator application. INDICATIONS: The patient is a 32-year-old male with past medical history of type 1 diabetes who [address] to Dr[address] Tavarez with a chronic Charcot foot deformity with complete midfoot collapse. The patient has exhausted conservative treatment at this time and now requires surgical intervention. The patient signed the consent after careful explanation of risks, benefits, complications and alternatives for surgical procedure. No guarantees were given nor implied. A 2 g of IV Ancef was given to the patient prior to the procedure. The patient's n.p.o. status was confirmed prior to taking the patient to the OR. PREPARATION: The patient was brought to the operating room and was placed on the operating room table in supine position. Time-out was performed by identification of the correct patient and the correct procedure. After induction of general anesthesia, a well-padded pneumatic thigh tourniquet was applied to the patient's right thigh. The right lower extremity was then prepped and draped in the usual sterile manner. Esmarch was utilized to exsanguinate the patient's right lower extremity. Pneumatic thigh tourniquet was then inflated to 350 mmHg and the procedure began. PROCEDURE #1: Right leg endoscopic gastrocnemius recession: Attention was directed to the posterior medial aspect of the patient's right lower extremity with the insertion of the Achilles tendon on the calcaneus was identified. Using a sterile ruler, a distance of approximately 15 cm proximal to the medial malleolus was measured. Next, the medial lateral margins of the gastrocnemius aponeurosis were identified at a level of approximately 15 cm proximal to the Achilles tendon insertion. A 2 cm linear longitudinal incision was now made with a #15 blade at the medial aspect of the gastrocnemius aponeurosis. A hemostat was now used and bluntly dissected down to the level of the gastrocnemius aponeurosis. Next, the cannula and trocar from the [employer] EndoBlade tray was now inserted into this medial portal. The tip of the trocar was advanced laterally and a 1.5 cm lateral portal was now created at the lateral aspect to the gastrocnemius aponeurosis. The cannula was now advanced out through the skin laterally. Cotton swabs were now passed through the inset of the cannula in order to clean it for better visualization. Next, the arthroscope was inserted into the cannula and at this time, the fibroids of the gastrocnemius aponeurosis were observed. The muscle belly was also visualized. The sural nerve was not visualized at this level, and thus a hook blade was now inserted into the lateral portal. Using this hook blade, the gastrocnemius tendon was cut from midline until the most lateral border was released. The camera was then switched to the lateral portal and the gastrocnemius tendon was cut from the midline until the most medial border was released. At this time, correction on the deformity was assessed and was noted to be excellent with a significant greater range of ankle dorsiflexion present when compared to the preoperative range of motion. At this time, the hook blade and the arthroscope were removed from their respective portals and the cannula was also removed. Both portals were now irrigated with a copious amount of sterile normal saline. The skin at both portal sides were then reapproximated and coapted 4-0 Prolene. PROCEDURE #2: Right foot Charcot reconstruction of the midfoot with bone graft application: Attention was then directed to the dorsal aspect of the midfoot. Using a surgical marking pencil, longitudinal incisions were marked along the medial and lateral aspects of the midfoot. Using a #15 blade, an approximately 8 cm linear longitudinal incision was created along the medial aspect of the midfoot extending from the base of the first metatarsal to the dorsal aspect of the talar head. The incision was deepened to the subcutaneous tissues using sharp and blunt dissection. Care was taken to identify and retract all vital neurovascular structures. All bleeders were cauterized and ligated as necessary. At this time, the tendon sheath of both the tibialis anterior and the extensor digitorum longus tendon were mobilized to retract them away from the operative field. Next, a linear capsular and periosteal incision was created using a Calhoun elevator, the periosteal tissues were reflected from the remainder of the bones present in the midfoot. There was a significant area devoid of bone noted in the medial aspect to the mid-thoracic spine. This area was inspected with an excessive amount of soft tissue. The soft tissue was carefully debulked. Any soft tissue that was removed was saved for pathology. Next, a thick soft tissue flap was created within the lateral margin of the incision by carefully reflecting all the soft tissue structures from the midfoot. At this time, using a fresh #15 blade, an approximately 8 cm linear longitudinal incision was created along the lateral aspect in the midfoot. The incision was deepened into the subcutaneous tissues using sharp and blunt dissection. Care was taken to identify and retract all vital neurovascular structures. All bleeders were cauterized and ligated as necessary. At this time, the extensor digitorum longus tendons were mobilized medially in order to keep them away from the operative field. Next, a linear capsular and periosteal incision was created. Using a Calhoun elevator, the periosteal tissues were reflected from the remainder of the bones present in the midfoot. There was a significant area devoid of bone noted in the lateral aspect of the midfoot at this time. This area was inspected with an excessive amount of soft tissue which were carefully debulked at this time. Any soft tissue that was removed was saved for pathology. Next, a thick soft tissue flap was created within the medial margin of this incision and carefully reflecting all the soft tissue structures from the midfoot. This soft tissue flap was made to be continuous with a previously created soft tissue flap in the lower incision site. At this time, a malleable retractor was bent accordingly and it was passed through both the medial and lateral incisions for proper retraction. Using intraoperative fluoroscopy, multiple AP and lateral images were taken and the bones of the midfoot were evaluated along with the bony defects. Significant distal collapse was noted. The decision was made to create a transverse osteotomy within the bones remaining in the midfoot and to introduce tricortical bone wedges within the osteotomy site to fill the bony defects. At this time, using a large reconstruction pathway, a transverse [id number] osteotomy was created across the midfoot utilizing both incision sites to complete the cut and osteotome and mallet were utilized to complete the cut as needed. Next, the base of the first metatarsal was resected and passed from the operative field to be sent for pathology. This was done so that we could have enough space to introduce the bone grafts. At this time, two [place] wedges sizes 8 and 10 were inserted within the medial osteotomy site. A size 12 [place] wedge was then inserted within the lateral osteotomy site. The accurate size and position of the inserted bone graft wedges were confirmed under fluoroscopy. Correction of the deformity was assessed at this time and it was noted to be excellent. A significant reduction in midfoot collapse was appreciated under fluoroscopic images. Both the medial and lateral surgical sites were now irrigated with a copious amounts of sterile normal saline. At this time, any remaining areas devoid of bone were now passed with approximately 10 mL of David Vitoss Bone Graft Substitute which was prepared according to package instruction. At this time, deep tissue closure was performed with 3-0 Vicryl with subcutaneous tissues were then reapproximated and coapted using 4-0 Vicryl. The skin was then reapproximated and coapted with 4-0 Prolene in an interrupted simple suture technique. PROCEDURE #3: Right lower extremity circular external fixator application: At this time, the pre-built Synthes maxframe construct was now assembled over the right lower extremity. This construct consisted of two full ring, one half ring, and a split sleeve connected together by . While ensuring that the external fixator was in proper position with respect to the patient's leg and foot, two 5.0-mm Schanz screws were inserted into the tibia in a divergent manner for extra rigidity. Prior to insertion of the Schanz screws, predrilling was performed using a 3.5 mm drill bit. Using fluoroscopy, bicortical purchase of both tibial Schanz screws were confirmed. The Schanz screws were attached to the frame using Schanz screw clamp. Two nuts were attached to both clamp and they were tightened down using a wrench. Next, a stab incision was created at the posterior aspect of the calcaneus for insertion of a third Schanz screw. A third 5.0 mm Schanz screw was then inserted into the calcaneus from posterior to anterior after predrilling with a 3.5 mm drill bit. The appropriate depth of the insertion was verified under fluoroscopy. This calcaneal screw was then attached to frame using a Schanz screw clamp and a nut and final tightening was performed using a wrench. Next, two reduction wires were inserted across the midfoot. A small stab incision was created at the medial aspect of the first metatarsal and a 1.8 mm reduction wire was driven across the first, second, and third metatarsal under fluoroscopy. The wire was driven until stopper was seated first against the medial aspect of the first metatarsal. Next, a second 1.8 mm reduction wire was driven across the fifth and fourth metatarsal under fluoroscopy. A small stab incision was created at the lateral aspect of the fifth metatarsal prior to stopper. The wire was driven until the stopper was seated first against bone. At this time, the wires were tighten down on its frame using wire bolts and nuts on the same side as the stopper. Next, using a wire tensioner, both wires were tensioned to approximately 80 kg on the side opposite the stopper. The wires were then tightened down on the side opposite the stopper using wire bolts and nuts. Final tightening of all the nuts and bolts were performed using a wrench to ensure proper stability. The strut connecting the footplate to the midfoot ring were loosened as needed to manipulate the foot into the corrected position. The strut were then tightened down once adequate foot and ankle positioning was obtained, so that the external fixator maintained the foot and ankle in its corrected position. Final radiographs were taken and all hardware was noted to be in good alignment. A significant reduction at midfoot collapse was appreciated at this time. All surgical sites were infiltrated with a total of 20 mL of 0.5% Marcaine plain. All incision sites were dressed with Xeroform. All pin and wire sites were also dressed with Xeroform. The right lower extremity was then dressed with 4 x 4 gauze, ABD pads, multiple Klings and multiple Moreno bandages. The attending Dr. Tavarez was present throughout the entire case. POSTOPERATIVE CONDITION: The patient tolerated the anesthesia and procedures well with no complications. The patient was escorted to the recovery room with vital signs stable and neurovascular status intact to the right lower extremity. The patient was instructed to remain nonweightbearing to the right lower extremity with crutches. The patient will be admitted to the hospital for surgical hemostasis and will be [facility] a [facility] for postoperative care and physical therapy. The patient will follow up with Dr. Tavarez at his office on an outpatient basis upon discharge. Chance Márquez DPM
== END 2017-08-29 15:40 | disposition home or self-care (01) | DRG 225 ==
LOC: C.9S 05:46 → C.6T 19:17
PROVIDERS: ADMIT Hospitalist; ATTEND Hospitalist
PROC: 0L8N4ZZ Division of Right Lower Leg Tendon, Percutaneous Endoscopic Approach (ICD-10-PCS; 2017-08-26)
PROC: 0QHN35Z Insertion of External Fixation Device into Right Metatarsal, Percutaneous Approach (ICD-10-PCS; 2017-08-26)
PROC: BQ1 Imaging, Non-Axial Lower Bones, Fluoroscopy (ICD-10-PCS; 2017-08-26)
PROC: 0QR Lower Bones, Replacement (ICD-10-PCS; principal; 2017-08-26 07:45)
DX: M14.671 Charcot's joint, right ankle and foot (principal); E10.610 Type 1 diabetes mellitus with diabetic neuropathic arthropathy; M67.01 Short Achilles tendon (acquired), right ankle; F17.210 Nicotine dependence, cigarettes, uncomplicated; F12.90 Cannabis use, unspecified, uncomplicated; Z79.4 Long term (current) use of insulin

== ENCOUNTER 2017-10-28 23:44 | Inpatient (IN) | payer OTHER ==
[2017-10-28 23:44] VITALS: BMI 25.4
[2017-10-29] MEDS ORDERED: Sodium Chloride 0.9% 1,000 ML IV ONE ×3 (02:21→04:32)
[2017-10-29] MEDS ORDERED: Sodium Chloride 0.9% 1,000 ML ONE ×2 (03:03→04:07)
[2017-10-29] MEDS ORDERED: Morphine 4 MG/ML VIAL ONE (03:03)
[2017-10-29 03:18] LABS: BASO # 0.1 K/uL (0.0-0.2); BASO % 0.6 % (0.0-2.0); EOS % 0.4 % (0.0-4.0); HEMOGLOBIN 12.3 g/dL (12.0-18.0); LYMPH # 2.4 K/uL (1.0-4.3); LYMPH % 24.1 % (20.0-40.0); MEAN CELL VOLUME 84.7 fL (80.0-94.0); MEAN CORPUSCULAR HEMOGLOBIN 28.2 pg (27.0-31.0); MEAN CORPUSCULAR HGB CONC 33.2 g/dL (33.0-37.0); MONO # 0.6 K/uL (0.0-0.8); MONO % 5.9 % (0.0-10.0); NEUT # 6.8 K/uL (1.8-7.0); NRBC % 0.1 % (0.0-2.0); RBC 4.36 Mil/uL (4.40-5.90); RED CELL DISTRIBUTION WIDTH 16.4 % (11.5-14.5); WHITE BLOOD COUNT 9.9 K/uL (4.8-10.8)
[2017-10-29 03:35] LABS: ALBUMIN 3.9 g/dL (3.5-5.0); CALCIUM 8.7 mg/dl (8.6-10.4)
[2017-10-29 03:36] LABS: ALB/GLOB RATIO 0.8 (1.0-2.1)
--- NOTE | 2017-10-29 03:47 | C.PDOC ---
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 Time Seen by Provider: 10/29/17 01:01 Chief Complaint (Nursing): Abdominal Pain History Per: Patient History/Exam Limitations: no limitations Onset/Duration Of Symptoms: Days (x2) Current Symptoms Are (Timing): Still Present Associated Symptoms: Fever (subjective), Nausea, Vomiting, Loss Of Appetite Past Medical History Reviewed: Historical Data, Nursing Documentation, Vital Signs Vital Signs: Last Vital Signs Temp 98.6 F 10/29/17 05:32 Pulse 92 H 10/29/17 06:37 Resp 22 10/29/17 06:37 BP 99/56 L 10/29/17 06:37 Pulse Ox 100 10/29/17 06:46 - Medical History PMH: Diabetes (Type 1) Denies: Chronic Kidney Disease Other PMH: chronic cough Surgical History: Denies: No Surg Hx Other Surgeries: recent right foot ulcer surgery (surgeon: Dr. Abbott) Patient follows up regularly. - [facility] Procedures DIVISION OF RIGHT LOWER LEG TENDON, PERC ENDO APPROACH (08/26/17) FLUOROSCOPY OF RIGHT FOOT (08/26/17) INSERTION OF EXT FIX INTO R METATARSAL, PERC APPROACH (08/26/17) REPLACEMENT OF R METATARSAL WITH SYNTH SUB, OPEN APPROACH (08/26/17) Family History: States: Unknown Family Hx - Social History Hx Tobacco Use: Yes (1 pack per day x10 years) Hx Alcohol Use: No Hx Substance Use: Yes (marijuana occasionally) Review Of Systems Except As Marked, All Systems Reviewed And Found Negative. Constitutional: Positive for: Fever (subjective) Respiratory: Positive for: Cough Gastrointestinal: Positive for: Nausea, Vomiting. Negative for: Abdominal Pain Physical Exam - Physical Exam Appears: No Acute Distress Skin: Normal Color, Warm, Dry Eye(s): bilateral: Normal Inspection, PERRL, EOMI Nose: Normal Throat: Normal Neck: Normal Cardiovascular: Rhythm Regular Respiratory: Normal Breath Sounds Gastrointestinal/Abdominal: Normal Exam, Soft, No Tenderness Back: Normal Inspection Male Genital: No Normal Inspection, Inguinal Swelling (right groin swelling without overlying skin changes. Palpation: firm and tender. Diameter of 3cm) Extremity: Normal ROM, Other (Right foot in cast and foot halo.) Neurological/Psych: Oriented x3, Normal Motor, Normal Sensation ED Course And Treatment - Laboratory Results Result Diagrams: 10/29/17 03:14 10/29/17 06:17 ECG: Interpreted By Me, Viewed By Me ECG Rhythm: Sinus Rhythm ECG Interpretation: No Acute Changes (no ischemic changes) Rate From EC O2 Sat by Pulse Oximetry: 100 (RA) Pulse Ox Interpretation: Normal Medical Decision Making Medical Decision Makin Reviewing foot/ankle XR (08/04/2017): External fixation to right foot. Neuropathic foot fixation pins through the calcaneus longitudinally. Initial plan: * Labs * CXR * fever work up * CT ABD/PELV 0245 CXR: NAD [address] Cochran, who agrees and accepts admission. Scribe Attestation: Documented by Eleni Hall acting as a scribe for Anjana Chapin MD. Scribe Attestation: All medical record entries made by the Scribe were at my direction and personally dictated by me. I have reviewed the chart and agree that the record accurately reflects my personal performance of the history, physical exam, medical decision making, and the department course for this patient. I have also personally directed, reviewed, and agree with the discharge instructions and disposition. Disposition Counseled Patient/Family Regarding: Diagnosis - Disposition Disposition: HOSPITALIZED Disposition Time: 06:56 Condition: FAIR - Clinical Impression Clinical Impression: Abdominal pain, Nausea, Vomiting
[2017-10-29] MEDS ORDERED: Vancomycin 1 gm/NS 200 ml 1 GM/200 ML BAG IVPB STA (04:31)
[2017-10-29] MEDS ORDERED: Cefepime IV 2 gm in Dextrose 2 GM/100 ML BAG IVPB STA (04:31)
[2017-10-29 05:58] LABS: VENOUS BLOOD GAS BASE EXCESS -1.3 mmol/L (0.0-2.0); VENOUS BLOOD GAS PCO2 46 mmHg (40-60); VENOUS BLOOD GAS PO2 40 mm/Hg (30-55); VENOUS BLOOD PH 7.34 (7.32-7.43)
[2017-10-29 06:40] LABS: CALCIUM 7.9 mg/dl (8.6-10.4)
[2017-10-29] MEDS ORDERED: Sodium Chloride 0.9% 1,000 ML IV SCH (08:30)
--- NOTE | 2017-10-29 08:45 | RAD ---
Chest x-ray two views History: Abdominal pain. Comparison: None available. Findings: No focal infiltrate or effusion. Heart size within normal limits. Impression: No focal infiltrate or effusion.
[2017-10-29 12:42] LABS: BLOOD UREA NITROGEN 21 mg/dL (9-20); CALCIUM 7.8 mg/dl (8.6-10.4); GFR AFRICAN-AMERICAN > 60; GFR NON-AFRICAN AMERICAN > 60
--- NOTE | 2017-10-29 13:31 | VASCLAB ---
PROCEDURE: Right Lower Extremity Venous Duplex Exam. HISTORY: rule out DVT. unilateral right sided groin pain PRIORS: None. TECHNIQUE: Right common femoral, femoral, popliteal and posterior tibial, peroneal and great saphenous veins were evaluated. Flow was assessed with color Doppler, compressibility, assessment of phasic flow and augmentation response. Report prepared by URVASHI Frias, RVT FINDINGS: RIGHT: 1. Common Femoral Vein: 1.1. Compressibility - Fully compressible: Thrombus - None: Flow - Phasic: Augmentation -Normal: Reflux - None. 2. Femoral Vein: 2.1. Compressibility - Fully compressible: Thrombus - None: Flow - Phasic: Augmentation -Normal: Reflux - None. 3. Popliteal Vein: 3.1. Compressibility - Fully compressible: Thrombus - None: Flow - Phasic: Augmentation -Normal: Reflux - None. 4. Posterior Tibial Vein: 4.1. Compressibility - : Thrombus - : Flow - : Augmentation -: Reflux - . 5. Peroneal Vein: 5.1. Compressibility - : Thrombus - : Flow - : Augmentation -: Reflux - . 6. Great Saphenous Vein: 6.1. Compressibility - Fully compressible: Thrombus -None: Flow - Phasic: Augmentation - Normal: Reflux - None. OTHER FINDINGS: Multiple anechoic vascularlized masses noted in the right groin area. Unable to image the right posterior tibial and peroneal veins due to device in the lower leg. Dr. Toro notified about findings. IMPRESSION: No evidence of deep or superficial vein thrombosis of the right lower extremity with excellent venous flow. Normal valve function noted of the right side. Normal venous flow noted in the left common femoral vein.
--- NOTE | 2017-10-29 16:43 | CP.PCM.CON ---
History of Present Illness - History of Present Illness History of Present Illness: Podiatry Progress Note- Dr. Menjivar: Mr. Saleem is a 32 yo type I diabetic male who iswell known to podiatry service who was admitted recently for new-onset painful right groin mass. Pt had Charcot reconstruction surgery with Dr. Tavarez of the right foot 08/26/17. Pt has been following up with Dr. Tavarez in the office regularly. Pt denies any pain or discomfort to the right lower extremity. Has been NWB to the right foot as directed. Pt says he is scheduled to have the frame removed 11/06/[address] Tavarez. Does says he had a fever yesterday, but denies any f/n/v/c/ sob/cp/weakness or dizziness at this time. Review of Systems - Review of Systems Review of Systems: all systems reviewed and found negative outside HPI Past Patient History - Past Medical History & Family History Past Medical History?: Yes - Past Social History Smoking Status: Heavy Smoker > 10 Cigarettes Daily - PULMONARY Hx Respiratory Disorders: No - NEUROLOGICAL Hx Neurological Disorder: No - HEENT Hx HEENT Problems: No - RENAL Hx Chronic Kidney Disease: No - ENDOCRINE/METABOLIC Hx Diabetes Mellitus Type 1: Yes - HEMATOLOGICAL/ONCOLOGICAL Hx Blood Disorders: No - INTEGUMENTARY Hx Dermatological Problems: Yes Other/Comment: diabetic lt foot ulcer - MUSCULOSKELETAL/RHEUMATOLOGICAL Hx Falls: No - GASTROINTESTINAL Hx Gastrointestinal Disorders: No Other/Comment: HX: NAUSEA FROM PAIN MED. - GENITOURINARY/GYNECOLOGICAL Hx Genitourinary Disorders: No - PSYCHIATRIC Hx Substance Use: Yes (smokes marihuana occasionally) - SURGICAL HISTORY Hx Surgeries: Yes Other/Comment: DEBRIDEMENT OF RIGHT FOOT WOUNDS X2-BOTTOM OF FOOT AND OUTER SIDE OF FOOT. - ANESTHESIA Hx Anesthesia: Yes Hx Anesthesia Reactions: No Hx Malignant Hyperthermia: No Meds Allergies/Adverse Reactions: Allergies Allergy/AdvReac Type Severity Reaction Status Date / Time No Known Allergies Allergy Verified 08/22/17 12:01 - Medications Medications: Current Medications Sodium Chloride (Sodium Chloride 0.9%) 1,000 mls @ 100 mls/hr IV .Q10H JUVE Last Admin: 10/29/17 10:00 Dose: 100 mls/hr Insulin Aspart (Novolog) 0 unit SC ACHS JUVE PRN Reason: Protocol Ondansetron HCl (Zofran Inj) 4 mg IVP Q6H PRN PRN Reason: Nausea/Vomiting Physical Exam - Constitutional Appears: Non-toxic, No Acute Distress - Extremities Exam Extremities exam: Negative for: calf tenderness Additional comments: RLE exam: External fixator hardware appears to be intact and in adequate alignment, dressing to the leg appears c/d/i with no strikethrough noted, cap refill < 3 sec to all digits, pt can wiggle all toes freely - Neurological Exam Neurological exam: Alert, CN II-XII Intact, Oriented x3 - Psychiatric Exam Psychiatric exam: Normal Affect, Normal Mood Results - Vital Signs Recent Vital Signs: Last Vital Signs Temp 98 F 10/29/17 14:40 Pulse 76 10/29/17 14:40 Resp 20 10/29/17 14:40 BP 142/97 H 10/29/17 14:40 Pulse Ox 96 10/29/17 14:40 - Labs Result Diagrams: 10/29/17 03:14 10/29/17 12:23 Labs: Laboratory Results - last 24 hr 10/29/17 10/29/17 10/29/17 03:14 03:14 03:14 WBC 9.9 RBC 4.36 L Hgb 12.3 D Hct 36.9 MCV 84.7 D MCH 28.2 MCHC 33.2 RDW 16.4 H Plt Count 354 MPV 8.0 Neut % (Auto) 69.0 Lymph % (Auto) 24.1 Starr % (Auto) 5.9 Eos % (Auto) 0.4 Baso % (Auto) 0.6 Neut # 6.8 Lymph # 2.4 Starr # 0.6 Eos # 0.0 Baso # 0.1 D-Dimer, Quantitative 268 H pO2 VBG pH VBG pCO2 VBG HCO3 VBG Total CO2 VBG O2 Sat (Calc) VBG Base Excess VBG Potassium Glucose Lactate Crit Value Called To Crit Value Called By Crit Value Read Back Blood Gas Notified Time Sodium 137 Potassium 4.3 Chloride 98 Carbon Dioxide 25 Anion Gap 18 BUN 27 H Creatinine 2.3 H Est GFR ( Amer) 41 Est GFR (Non-Af Amer) 34 POC Glucose (mg/dL) Random Glucose 156 H Calcium 8.7 Total Bilirubin 0.6 AST 13 L D ALT 13 L D Alkaline Phosphatase 129 H Total Protein 8.9 H Albumin 3.9 Globulin 5.0 H Albumin/Globulin Ratio 0.8 L Lipase 14 L Venous Blood Potassium 10/29/17 10/29/17 10/29/17 05:44 06:17 12:23 WBC RBC Hgb Hct MCV MCH MCHC RDW Plt Count MPV Neut % (Auto) Lymph % (Auto) Starr % (Auto) Eos % (Auto) Baso % (Auto) Neut # Lymph # Starr # Eos # Baso # D-Dimer, Quantitative pO2 40 VBG pH 7.34 VBG pCO2 46 VBG HCO3 23.2 VBG Total CO2 26.2 VBG O2 Sat (Calc) 82.9 H VBG Base Excess -1.3 L VBG Potassium 3.9 Glucose 119 H Lactate 0.7 Crit Value Called To Md kandi rand Crit Value Called By R alert rn mds Crit Value Read Back Y Blood Gas Notified Time 605 Sodium 139.0 135 129 L Potassium 4.0 4.3 Chloride 110.0 H 104 102 Carbon Dioxide 23 23 Anion Gap 12 9 L BUN 27 H 21 H Creatinine 1.9 H 1.1 Est GFR ( Amer) 51 > 60 Est GFR (Non-Af Amer) 42 > 60 POC Glucose (mg/dL) Random Glucose 122 H 266 H Calcium 7.9 L 7.8 L Total Bilirubin AST ALT Alkaline Phosphatase Total Protein Albumin Globulin Albumin/Globulin Ratio Lipase Venous Blood Potassium 3.9 10/29/17 16:38 WBC RBC Hgb Hct MCV MCH MCHC RDW Plt Count MPV Neut % (Auto) Lymph % (Auto) Starr % (Auto) Eos % (Auto) Baso % (Auto) Neut # Lymph # Starr # Eos # Baso # D-Dimer, Quantitative pO2 VBG pH VBG pCO2 VBG HCO3 VBG Total CO2 VBG O2 Sat (Calc) VBG Base Excess VBG Potassium Glucose Lactate Crit Value Called To Crit Value Called By Crit Value Read Back Blood Gas Notified Time Sodium Potassium Chloride Carbon Dioxide Anion Gap BUN Creatinine Est GFR ( Amer) Est GFR (Non-Af Amer) POC Glucose (mg/dL) 298 H Random Glucose Calcium Total Bilirubin AST ALT Alkaline Phosphatase Total Protein Albumin Globulin Albumin/Globulin Ratio Lipase Venous Blood Potassium Assessment & Plan - Assessment and Plan (Free Text) Assessment: 32 yo type I diabetic male patient admitted for right groin mass, seen by podiatry 2 months s/p R foot charcot reconstruction Plan: Pt S&E at the bedside Plan discussed with attending Dr. Menjivar Chart, labs and vitals reviewed Dressing to RLE to be kept intact at this time. Podiatry will follow for wellness visits
[2017-10-29] MEDS: (Novolog) Insulin Aspart, Recombinant 100 u/ml 10 ml vial SC SCH ×2 (16:56→21:41)
--- NOTE | 2017-10-29 17:31 | CP.PCM.HP ---
History of Present Illness - History of Present Illness History of Present Illness: Patient was seen and examined at approximately 8:15AM in ER Bed 1. Patient is currently a full code status at this time. CC: groin pain HPI: 32 year old male with past medical history significant for diabetes presents with complaints of right sided groin pain which he first started experiencing 3 days prior. Patient states that at the time, he simply noticed the swelling. The day following he began experiencing the pain. Patient states that he began experiencing subjective fevers. He admits to loss of appetite as well as nausea and vomiting. Patient cannot recall any factors leading to this presentation. He denies any trauma, recent exposure to cats, or history of viral disorders or Tuberculosis. Patient had right foot surgery back in August for which he has been following up with the boom man regularly. He is due to have the pins removed on November 06. He denies any associated new pain of the foot. Besides the aforementioned. Patient denies current chills, chest pain, trouble breathing, abdominal pain. 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 Meds- Insulin Humalin 10 units before each meal; Toujeo 15 units in the AM and PM Allergies- NKDA Present on Admission - Present on Admission Any Indicators Present on Admission: No Review of Systems - Constitutional Constitutional: Fever, Headache - EENT Eyes: absent: Blind Spots, Blurred Vision Nose/Mouth/Throat: absent: Nasal Congestion, Nasal Discharge - Cardiovascular Cardiovascular: absent: Chest Pain, Dyspnea - Respiratory Respiratory: absent: Cough, Dyspnea, Dyspnea on Exertion, Chest Congestion - Gastrointestinal Gastrointestinal: Nausea, Vomiting - Genitourinary Genitourinary: absent: Urinary Frequency, Urinary Hesitance - Integumentary Integumentary: Swelling - Neurological Neurological: absent: Tremor, Weakness - Psychiatric Psychiatric: absent: Anxiety Past Patient History - Past Medical History & Family History Past Medical History?: Yes - Past Social History Smoking Status: Heavy Smoker > 10 Cigarettes Daily Alcohol: None Drugs: Cannabis - PULMONARY Hx Respiratory Disorders: No - NEUROLOGICAL Hx Neurological Disorder: No - HEENT Hx HEENT Problems: No - RENAL Hx Chronic Kidney Disease: No - ENDOCRINE/METABOLIC Hx Diabetes Mellitus Type 1: Yes - HEMATOLOGICAL/ONCOLOGICAL Hx Blood Disorders: No - INTEGUMENTARY Hx Dermatological Problems: Yes Other/Comment: diabetic lt foot ulcer - MUSCULOSKELETAL/RHEUMATOLOGICAL Hx Falls: No - GASTROINTESTINAL Hx Gastrointestinal Disorders: No Other/Comment: HX: NAUSEA FROM PAIN MED. - GENITOURINARY/GYNECOLOGICAL Hx Genitourinary Disorders: No - PSYCHIATRIC Hx Substance Use: Yes (smokes marihuana occasionally) - SURGICAL HISTORY Hx Surgeries: Yes Other/Comment: DEBRIDEMENT OF RIGHT FOOT WOUNDS X2-BOTTOM OF FOOT AND OUTER SIDE OF FOOT. - ANESTHESIA Hx Anesthesia: Yes Hx Anesthesia Reactions: No Hx Malignant Hyperthermia: No Meds Allergies/Adverse Reactions: Allergies Allergy/AdvReac Type Severity Reaction Status Date / Time No Known Allergies Allergy Verified 08/22/17 12:01 Physical Exam - Constitutional Appears: Non-toxic, No Acute Distress - Head Exam Head Exam: ATRAUMATIC, NORMAL INSPECTION, NORMOCEPHALIC - Eye Exam Eye Exam: EOMI, Normal appearance, PERRL Pupil Exam: NORMAL ACCOMODATION - ENT Exam ENT Exam: Mucous Membranes Moist - Neck Exam Neck exam: Positive for: Full Rom - Respiratory Exam Respiratory Exam: NORMAL BREATHING PATTERN. absent: Wheezes - Cardiovascular Exam Cardiovascular Exam: +S1, +S2 - GI/Abdominal Exam GI & Abdominal Exam: Normal Bowel Sounds, Soft, Tenderness - Exam Additional comments: groin tenderness- mild erythema noted on initial examination at 8am decreased tenderness to palpation, decreased erythema, decreased swelling on later examination at 18:10 - Extremities Exam Extremities exam: Positive for: full ROM, normal capillary refill, pedal edema Additional comments: External hardware with dressing noted on right lower extremity; sensation intact; patient able to wiggle toes - Back Exam Back exam: FULL ROM - Neurological Exam Neurological exam: Alert, Oriented x3 - Psychiatric Exam Psychiatric exam: Normal Affect, Normal Mood - Skin Skin Exam: Dry, Rash, Warm Results - Vital Signs Recent Vital Signs: Last Vital Signs Temp 98 F 10/29/17 14:40 Pulse 76 10/29/17 14:40 Resp 20 10/29/17 14:40 BP 142/97 H 10/29/17 14:40 Pulse Ox 96 10/29/17 14:40 - Labs Result Diagrams: 10/29/17 03:14 10/29/17 12:23 Labs: Laboratory Results - last 24 hr 10/29/17 10/29/17 10/29/17 03:14 03:14 03:14 WBC 9.9 RBC 4.36 L Hgb 12.3 D Hct 36.9 MCV 84.7 D MCH 28.2 MCHC 33.2 RDW 16.4 H Plt Count 354 MPV 8.0 Neut % (Auto) 69.0 Lymph % (Auto) 24.1 Irion % (Auto) 5.9 Eos % (Auto) 0.4 Baso % (Auto) 0.6 Neut # 6.8 Lymph # 2.4 Irion # 0.6 Eos # 0.0 Baso # 0.1 D-Dimer, Quantitative 268 H pO2 VBG pH VBG pCO2 VBG HCO3 VBG Total CO2 VBG O2 Sat (Calc) VBG Base Excess VBG Potassium Glucose Lactate Crit Value Called To Crit Value Called By Crit Value Read Back Blood Gas Notified Time Sodium 137 Potassium 4.3 Chloride 98 Carbon Dioxide 25 Anion Gap 18 BUN 27 H Creatinine 2.3 H Est GFR ( Amer) 41 Est GFR (Non-Af Amer) 34 POC Glucose (mg/dL) Random Glucose 156 H Calcium 8.7 Total Bilirubin 0.6 AST 13 L D ALT 13 L D Alkaline Phosphatase 129 H Total Protein 8.9 H Albumin 3.9 Globulin 5.0 H Albumin/Globulin Ratio 0.8 L Lipase 14 L Venous Blood Potassium 10/29/17 10/29/17 10/29/17 05:44 06:17 12:23 WBC RBC Hgb Hct MCV MCH MCHC RDW Plt Count MPV Neut % (Auto) Lymph % (Auto) Irion % (Auto) Eos % (Auto) Baso % (Auto) Neut # Lymph # Irion # Eos # Baso # D-Dimer, Quantitative pO2 40 VBG pH 7.34 VBG pCO2 46 VBG HCO3 23.2 VBG Total CO2 26.2 VBG O2 Sat (Calc) 82.9 H VBG Base Excess -1.3 L VBG Potassium 3.9 Glucose 119 H Lactate 0.7 Crit Value Called To Md kandi rand Crit Value Called By R alert manager practice Crit Value Read Back Y Blood Gas Notified Time 605 Sodium 139.0 135 129 L Potassium 4.0 4.3 Chloride 110.0 H 104 102 Carbon Dioxide 23 23 Anion Gap 12 9 L BUN 27 H 21 H Creatinine 1.9 H 1.1 Est GFR ( Amer) 51 > 60 Est GFR (Non-Af Amer) 42 > 60 POC Glucose (mg/dL) Random Glucose 122 H 266 H Calcium 7.9 L 7.8 L Total Bilirubin AST ALT Alkaline Phosphatase Total Protein Albumin Globulin Albumin/Globulin Ratio Lipase Venous Blood Potassium 3.9 10/29/17 16:38 WBC RBC Hgb Hct MCV MCH MCHC RDW Plt Count MPV Neut % (Auto) Lymph % (Auto) Irion % (Auto) Eos % (Auto) Baso % (Auto) Neut # Lymph # Irion # Eos # Baso # D-Dimer, Quantitative pO2 VBG pH VBG pCO2 VBG HCO3 VBG Total CO2 VBG O2 Sat (Calc) VBG Base Excess VBG Potassium Glucose Lactate Crit Value Called To Crit Value Called By Crit Value Read Back Blood Gas Notified Time Sodium Potassium Chloride Carbon Dioxide Anion Gap BUN Creatinine Est GFR ( Amer) Est GFR (Non-Af Amer) POC Glucose (mg/dL) 298 H Random Glucose Calcium Total Bilirubin AST ALT Alkaline Phosphatase Total Protein Albumin Globulin Albumin/Globulin Ratio Lipase Venous Blood Potassium Assessment & Plan (1) Inguinal tenderness Assessment and Plan: Dopplers negative F/U CT imaging to rule out hernia. Motrin PRN Pain significantly reduced Status: Acute (2) Status post right foot surgery Assessment and Plan: F/U Podiatry recommendations. Patient has been followign up outpatient. He is due to have external fixator removed on 11/06 Status: Acute (3) Diabetes mellitus Assessment and Plan: Accuchecks ISS at this time F/U A1c Heart Healthy diet- Mod consistent carb diet Status: Acute (4) MICAH (acute kidney injury) Assessment and Plan: Initially elevated Cr 2.3 -> 1.9 -> 1.1, Now resolved Likely secondary to vomiting and loss of appetite Now stable. Fluids discontinued. Monitor AM labs Status: Acute (5) Prophylactic measure Assessment and Plan: Heparin Q8 SC GI Prophylaxis not currently indicated Status: Acute
[2017-10-29 21:14] LABS: URINE BILIRUBIN NEGATIVE (NEGATIVE); URINE BLOOD 2+ (NEGATIVE); URINE CLARITY Clear (Clear); URINE COLOR Straw (YELLOW); URINE GLUCOSE (UA) 3+ mg/dL (Normal); URINE LEUKOCYTE ESTERASE NEG Leu/uL (Negative); URINE NITRATE NEGATIVE (NEGATIVE); URINE PROTEIN 1+ mg/dL (NEGATIVE); URINE UROBILINOGEN NORMAL mg/dL (0.2-1.0)
[2017-10-29] MEDS ORDERED: (Novolog) Insulin Aspart, Recombinant 100 u/ml 10 ml vial SC STA (22:00)
--- NOTE | 2017-10-30 07:48 | CP.PCM.PN ---
<Akosua Harvey - Last Filed: 10/30/17 18:15> Subjective - Date & Time of Evaluation Date of Evaluation: 10/30/17 Time of Evaluation: 07:48 - Subjective Subjective: Medicine progress note for Dr. Cochran's service Patient was seen and examined at bedside in no acute distress. Patient reports he is feeling okay an has mild tenderness in his right groin. Patient denies fevers, headaches, nausea, vomiting, chest pain, abdominal pain, and shortness of breath. Objective - Vital Signs/Intake and Output Vital Signs (last 24 hours): Temp Pulse Resp BP Pulse Ox 97.5 F L 74 20 142/84 98 10/30/17 02:00 10/30/17 02:00 10/30/17 02:00 10/30/17 02:00 10/30/17 02:00 - Medications Medications: Current Medications Heparin Sodium (Porcine) (Heparin) 5,000 units SC Q8 JUVE Last Admin: 10/30/17 06:00 Dose: Not Given Ibuprofen (Motrin Tab) 600 mg PO TID PRN PRN Reason: Pain, Mild (1-3) Insulin Aspart (Novolog) 0 unit SC ACHS JUVE PRN Reason: Protocol Last Admin: 10/29/17 21:41 Dose: 3 unit Ondansetron HCl (Zofran Inj) 4 mg IVP Q6H PRN PRN Reason: Nausea/Vomiting - Labs Labs: 10/29/17 03:14 10/29/17 12:23 - Constitutional Appears: No Acute Distress - Head Exam Head Exam: ATRAUMATIC, NORMAL INSPECTION - Eye Exam Eye Exam: EOMI, Normal appearance - ENT Exam ENT Exam: Mucous Membranes Moist - Respiratory Exam Respiratory Exam: Clear to Ausculation Bilateral, NORMAL BREATHING PATTERN. absent: Rales, Rhonchi, Wheezes, Respiratory Distress - Cardiovascular Exam Cardiovascular Exam: REGULAR RHYTHM, +S1, +S2 - GI/Abdominal Exam GI & Abdominal Exam: Soft, Normal Bowel Sounds. absent: Distended, Tenderness - Exam Exam: absent: NORMAL INSPECTION (mild right groin tenderness; swelling/ fullness noted) - Extremities Exam Additional comments: RLE: External hardware with dressing noted; sensation intact; patient able to wiggle toes - Neurological Exam Neurological Exam: Alert, Awake, Oriented x3 - Psychiatric Exam Psychiatric exam: Normal Affect, Normal Mood - Skin Skin Exam: Dry, Intact, Warm Assessment and Plan - Assessment and Plan (Free Text) Plan: Assessment & Plan (1) Inguinal tenderness Assessment and Plan: Dopplers negative F/U CT imaging to rule out hernia. Motrin PRN Pain significantly reduced (2) Status post right foot surgery Assessment and Plan: F/U Podiatry recommendations. Patient has been following up outpatient. He is due to have external fixator removed on 11/06 (3) Diabetes mellitus Assessment and Plan: Accuchecks ISS at this time Continued home insulin- Humalog 10 units TID A1c 6.9 Heart Healthy diet- Mod consistent carb diet (4) MICAH (acute kidney injury) Assessment and Plan: Initially elevated Cr 2.3 -> 1.9 -> 1.1, Now resolved Likely secondary to vomiting and loss of appetite Now stable. Fluids discontinued. Monitor AM labs (5) Prophylactic measure Assessment and Plan: Heparin Q8 SC GI Prophylaxis not currently indicated <Abhishek Cochran Jr. - Last Filed: 10/31/17 19:32> Objective - Vital Signs/Intake and Output Vital Signs (last 24 hours): Temp Pulse Resp BP Pulse Ox 98.2 F 83 20 138/86 99 10/31/17 17:31 10/31/17 17:31 10/31/17 17:31 10/31/17 17:31 10/31/17 17:31 - Medications Medications: Current Medications Heparin Sodium (Porcine) (Heparin) 5,000 units SC Q8 [facility] Last Admin: 10/31/17 14:00 Dose: Not Given Ibuprofen (Motrin Tab) 600 mg PO TID PRN PRN Reason: Pain, Mild (1-3) Last Admin: 10/30/17 14:13 Dose: 600 mg Insulin Aspart (Novolog) 0 unit SC ACHS JUVE PRN Reason: Protocol Last Admin: 10/31/17 17:10 Dose: 2 unit Insulin Aspart (Novolog) 10 unit SC TIDAC [facility] Last Admin: 10/31/17 17:10 Dose: Not Given Ondansetron HCl (Zofran Inj) 4 mg IVP Q6H PRN PRN Reason: Nausea/Vomiting Last Admin: 10/30/17 08:42 Dose: 4 mg Oxycodone/Acetaminophen (Percocet 5/325 Mg Tab) 1 tab PO Q4H PRN PRN Reason: Pain, moderate (4-7) Stop: 11/02/17 17:52 Last Admin: 10/31/17 18:35 Dose: 1 tab - Labs Labs: 10/31/17 07:34 10/31/17 07:34 Attending/Attestation - Attestation I have personally seen and examined this patient.: Yes I have fully participated in the care of the patient.: Yes I have reviewed all pertinent clinical information, including history, physical exam and plan: Yes Notes (Text): 10/31/17 19:32 Agree with resident note and plan of care
[2017-10-30] MEDS ORDERED: Iohexol 240 (50 ml) PO ONE (08:15)
[2017-10-30 08:16] LABS: BASO % 0.5 % (0.0-2.0); EOS # 0.1 K/uL (0.0-0.7); HEMOGLOBIN 11.3 g/dL (12.0-18.0); LYMPH # 1.4 K/uL (1.0-4.3); LYMPH % 20.2 % (20.0-40.0); MEAN CELL VOLUME 84.5 fL (80.0-94.0); MEAN CORPUSCULAR HEMOGLOBIN 28.3 pg (27.0-31.0); MEAN CORPUSCULAR HGB CONC 33.4 g/dL (33.0-37.0); MEAN PLATELET VOLUME 8.6 fL (7.2-11.7); MONO # 0.5 K/uL (0.0-0.8); MONO % 7.1 % (0.0-10.0); NEUT # 4.9 K/uL (1.8-7.0); NEUT % 71.2 % (50.0-75.0); RBC 4.01 Mil/uL (4.40-5.90); WHITE BLOOD COUNT 6.9 K/uL (4.8-10.8)
[2017-10-30] MEDS: (Novolog) Insulin Aspart, Recombinant 100 u/ml 10 ml vial SC SCH ×6 (08:48→21:40)
[2017-10-30 09:03] LABS: ALB/GLOB RATIO 0.9 (1.0-2.1); ALBUMIN 3.4 g/dL (3.5-5.0); ALT/SGPT 16 U/L (21-72); AST/SGOT 16 U/L (17-59); BLOOD UREA NITROGEN 19 mg/dL (9-20); CALCIUM 8.6 mg/dl (8.6-10.4); GFR AFRICAN-AMERICAN > 60; GFR NON-AFRICAN AMERICAN > 60; MAGNESIUM 1.6 mg/dL (1.6-2.3)
[2017-10-30] MEDS ORDERED: Iodixanol 320 MG/ML 100 ML BOTTLE IV ONE (12:32)
--- NOTE | 2017-10-30 13:37 | CT ---
PROCEDURE: CT Abdomen and Pelvis with oral and IV contrast. HISTORY: rule out hernia COMPARISON: None available TECHNIQUE: Contiguous axial images of the abdomen and pelvis. Oral and IV contrast was administered. Coronal and Sagittal reformats generated and reviewed. Contrast dose: 100 mL Visipaque Radiation dose: Total exam DLP = 449.27 mGy-cm. This CT exam was performed using one or more of the following dose reduction techniques: Automated exposure control, adjustment of the mA and/or kV according to patient size, and/or use of iterative reconstruction technique. FINDINGS: LOWER THORAX: No visible consolidation, pleural effusion, or pneumothorax. Small hiatal hernia/distal esophageal wall thickening. LIVER: Unremarkable. GALLBLADDER AND BILE DUCTS: Decompressed gallbladder appears otherwise unremarkable. PANCREAS: Diminutive pancreas. SPLEEN: Unremarkable. ADRENALS: Unremarkable. KIDNEYS AND URETERS: The kidneys enhance symmetrically. No hydronephrosis or obstructing renal calculus. BLADDER: The urinary bladder appears unremarkable. REPRODUCTIVE: Unremarkable. APPENDIX: The appendix appears within normal limits of caliber. No secondary signs of acute appendicitis. BOWEL: The stomach is nondistended. The bowel loops appear within normal limits of caliber without evidence of intestinal obstruction. PERITONEUM: No significant free fluid. No definite free air. LYMPH NODES: Bulky right inguinal lymph nodes. Left inguinal lymph nodes are evident, smaller in size. VASCULATURE: No aortic aneurysm. BONES: No acute osseous abnormality is detected. OTHER FINDINGS: 4.0 x 2.4 cm right inguinal fluid collection, possibly phlegmon or developing abscess. Associated adjacent inflammatory changes and adenopathy. IMPRESSION: 4.0 x 2.4 cm right inguinal fluid collection, possibly phlegmon or developing abscess. Associated adjacent inflammatory changes and adenopathy. Correlate clinically. Additional findings as above.
--- NOTE | 2017-10-30 16:06 | CARD ---
APPROVED REPORT EKG Measurement Heart [id number] VT [id number] <Conclusion> Normal sinus rhythm Normal ECG
[2017-10-30] MEDS ORDERED: Oxycodone/Acetaminophen 5/325 mg Tab PO ONE (17:50)
[2017-10-31 07:51] LABS: BASO % 0.3 % (0.0-2.0); EOS # 0.1 K/uL (0.0-0.7); EOS % 2.1 % (0.0-4.0); HEMOGLOBIN 11.6 g/dL (12.0-18.0); LYMPH # 1.8 K/uL (1.0-4.3); LYMPH % 33.2 % (20.0-40.0); MEAN CELL VOLUME 83.8 fL (80.0-94.0); MEAN CORPUSCULAR HGB CONC 34.6 g/dL (33.0-37.0); MEAN PLATELET VOLUME 8.2 fL (7.2-11.7); MONO # 0.5 K/uL (0.0-0.8); MONO % 8.7 % (0.0-10.0); NEUT # 3.1 K/uL (1.8-7.0); NEUT % 55.7 % (50.0-75.0); RBC 3.99 Mil/uL (4.40-5.90); RED CELL DISTRIBUTION WIDTH 15.9 % (11.5-14.5); WHITE BLOOD COUNT 5.6 K/uL (4.8-10.8)
[2017-10-31] MEDS: (Novolog) Insulin Aspart, Recombinant 100 u/ml 10 ml vial SC SCH ×7 (08:12→21:27)
[2017-10-31 08:13] LABS: ALB/GLOB RATIO 0.8 (1.0-2.1); ALBUMIN 3.3 g/dL (3.5-5.0); ALT/SGPT 16 U/L (21-72); AST/SGOT 14 U/L (17-59); BLOOD UREA NITROGEN 15 mg/dL (9-20); GFR AFRICAN-AMERICAN > 60; GFR NON-AFRICAN AMERICAN > 60
--- NOTE | 2017-10-31 09:06 | CP.PCM.PN ---
<Akosua Harvey - Last Filed: 10/31/17 18:21> Subjective - Date & Time of Evaluation Date of Evaluation: 10/31/17 Time of Evaluation: 09:02 - Subjective Subjective: Medicine progress note for Dr. Cochran's service Patient was seen and examined at bedside in no acute distress. Patient reports he is feeling better and the tenderness in his right groin has decreased. Patient denies fevers, headaches, nausea, vomiting, chest pain, abdominal pain, and shortness of breath. Objective - Vital Signs/Intake and Output Vital Signs (last 24 hours): Temp Pulse Resp BP Pulse Ox 98 F 87 20 135/84 96 10/31/17 07:54 10/31/17 07:54 10/31/17 07:54 10/31/17 07:54 10/31/17 07:54 Intake and Output: 10/31/17 10/31/17 06:59 18:59 Intake Total 250 Output Total 500 Balance -250 - Medications Medications: Current Medications Heparin Sodium (Porcine) (Heparin) 5,000 units SC Q8 [facility] Last Admin: 10/31/17 06:00 Dose: Not Given Ibuprofen (Motrin Tab) 600 mg PO TID PRN PRN Reason: Pain, Mild (1-3) Last Admin: 10/30/17 14:13 Dose: 600 mg Insulin Aspart (Novolog) 0 unit SC ACHS [facility] PRN Reason: Protocol Last Admin: 10/31/17 08:12 Dose: 1 unit Insulin Aspart (Novolog) 10 unit SC TIDAC [facility] Last Admin: 10/31/17 08:12 Dose: 10 unit Ondansetron HCl (Zofran Inj) 4 mg IVP Q6H PRN PRN Reason: Nausea/Vomiting Last Admin: 10/30/17 08:42 Dose: 4 mg Oxycodone/Acetaminophen (Percocet 5/325 Mg Tab) 1 tab PO Q4H PRN PRN Reason: Pain, moderate (4-7) Stop: 11/02/17 17:52 - Labs Labs: 10/31/17 07:34 10/31/17 07:34 - Additional Findings Additional findings: - Constitutional Appears: No Acute Distress - Head Exam Head Exam: ATRAUMATIC, NORMAL INSPECTION - Eye Exam Eye Exam: EOMI, Normal appearance - ENT Exam ENT Exam: Mucous Membranes Moist - Respiratory Exam Respiratory Exam: Clear to Ausculation Bilateral, NORMAL BREATHING PATTERN. absent: Rales, Rhonchi, Wheezes, Respiratory Distress - Cardiovascular Exam Cardiovascular Exam: REGULAR RHYTHM, +S1, +S2 - GI/Abdominal Exam GI & Abdominal Exam: Soft, Normal Bowel Sounds. absent: Distended, Tenderness - Exam Exam: absent: NORMAL INSPECTION (mild right groin tenderness; swelling/ fullness noted) - Extremities Exam Additional comments: RLE: External hardware with dressing noted; sensation intact; patient able to wiggle toes - Neurological Exam Neurological Exam: Alert, Awake, Oriented x3 - Psychiatric Exam Psychiatric exam: Normal Affect, Normal Mood - Skin Skin Exam: Dry, Intact, Warm Assessment and Plan - Assessment and Plan (Free Text) Plan: Assessment & Plan (1) Inguinal tenderness Assessment and Plan: Dopplers negative Abd/pelv CT imaging to rule out hernia: 4x2.4cm right inguinal fluid collection , possibly phlegmon or developing abscess; associated adjacent inflammatory changes and adenopathy; see full report Motrin PRN Pain significantly reduced General surgery consulted, Dr. Dela Cruz; recs appreciated (2) Status post right foot surgery Assessment and Plan: F/U Podiatry recommendations. Patient has been following up outpatient. He is due to have external fixator removed on 11/06 (3) Diabetes mellitus Assessment and Plan: Accuchecks ISS at this time Continued home insulin- Humalog 10 units TID A1c 6.9 Heart Healthy diet- Mod consistent carb diet (4) MICAH (acute kidney injury) Assessment and Plan: Initially elevated Cr 2.3 -> 1.9 -> 1.1, Now resolved Likely secondary to vomiting and loss of appetite Now stable. Fluids discontinued. Monitor AM labs (5) Prophylactic measure Assessment and Plan: Heparin Q8 [facility] Prophylaxis not currently indicated <Abhishek Cochran Jr. - Last Filed: 10/31/17 19:37> Objective - Vital Signs/Intake and Output Vital Signs (last 24 hours): Temp Pulse Resp BP Pulse Ox 98.2 F 83 20 138/86 99 10/31/17 17:31 10/31/17 17:31 10/31/17 17:31 10/31/17 17:31 10/31/17 17:31 - Medications Medications: Current Medications Heparin Sodium (Porcine) (Heparin) 5,000 units SC Q8 [facility] Last Admin: 10/31/17 14:00 Dose: Not Given Ibuprofen (Motrin Tab) 600 mg PO TID PRN PRN Reason: Pain, Mild (1-3) Last Admin: 10/30/17 14:13 Dose: 600 mg Insulin Aspart (Novolog) 0 unit SC ACHS [facility] PRN Reason: Protocol Last Admin: 10/31/17 17:10 Dose: 2 unit Insulin Aspart (Novolog) 10 unit SC TIDAC [facility] Last Admin: 10/31/17 17:10 Dose: Not Given Ondansetron HCl (Zofran Inj) 4 mg IVP Q6H PRN PRN Reason: Nausea/Vomiting Last Admin: 10/30/17 08:42 Dose: 4 mg Oxycodone/Acetaminophen (Percocet 5/325 Mg Tab) 1 tab PO Q4H PRN PRN Reason: Pain, moderate (4-7) Stop: 11/02/17 17:52 Last Admin: 10/31/17 18:35 Dose: 1 tab - Labs Labs: 10/31/17 07:34 10/31/17 07:34 Attending/Attestation - Attestation I have personally seen and examined this patient.: Yes I have fully participated in the care of the patient.: Yes I have reviewed all pertinent clinical information, including history, physical exam and plan: Yes Notes (Text): 10/31/17 19:37 Agree with resident note and plan of care
--- NOTE | 2017-10-31 11:17 | CP.PCM.PN ---
Subjective - Date & Time of Evaluation Date of Evaluation: 10/31/17 Time of Evaluation: 11:14 - Subjective Subjective: 32 year old male with PMHx DMI seen at bedside for wellness check with attending Dr. Menjivar. Patient had reconstructive surgery for Charcot deformity with Dr. Abbott in August of 2017. Patient states that he is feeling well. He is AAO x 3 and NAD, resting comfortably in bed. Denies any new pedal complaints. Denies N/V/F/C/CP/SOB/D/posterior calf pain when squeezed. Objective - Vital Signs/Intake and Output Vital Signs (last 24 hours): Temp Pulse Resp BP Pulse Ox 98 F 87 20 135/84 96 10/31/17 07:54 10/31/17 07:54 10/31/17 07:54 10/31/17 07:54 10/31/17 07:54 Intake and Output: 10/31/17 10/31/17 06:59 18:59 Intake Total 250 Output Total 500 Balance -250 - Medications Medications: Current Medications Heparin Sodium (Porcine) (Heparin) 5,000 units SC Q8 [facility] Last Admin: 10/31/17 06:00 Dose: Not Given Ibuprofen (Motrin Tab) 600 mg PO TID PRN PRN Reason: Pain, Mild (1-3) Last Admin: 10/30/17 14:13 Dose: 600 mg Insulin Aspart (Novolog) 0 unit SC ACHS [facility] PRN Reason: Protocol Last Admin: 10/31/17 08:12 Dose: 1 unit Insulin Aspart (Novolog) 10 unit SC TIDAC [facility] Last Admin: 10/31/17 08:12 Dose: 10 unit Ondansetron HCl (Zofran Inj) 4 mg IVP Q6H PRN PRN Reason: Nausea/Vomiting Last Admin: 10/30/17 08:42 Dose: 4 mg Oxycodone/Acetaminophen (Percocet 5/325 Mg Tab) 1 tab PO Q4H PRN PRN Reason: Pain, moderate (4-7) Stop: 11/02/17 17:52 - Labs Labs: 10/31/17 07:34 10/31/17 07:34 - Constitutional Appears: Well, Non-toxic, No Acute Distress - Extremities Exam Additional comments: RLE exam: External fixator hardware appears to be intact and in adequate alignment, dressing to the leg appears c/d/i with no strikethrough noted, cap refill < 3 sec to all digits, pt can wiggle all toes freely - Neurological Exam Neurological Exam: Alert, Awake, Oriented x3 - Psychiatric Exam Psychiatric exam: Normal Affect, Normal Mood Assessment and Plan - Assessment and Plan (Free Text) Assessment: 32 yo type I diabetic male patient admitted for right groin mass, seen by podiatry 2 months s/p R foot charcot reconstruction Plan: Patient seen and evaluated with attending Dr. Menjivar for wellness check Patient denies any new complaints to his external fixator which appears to be in proper position with no malfunction noted Dressings were not changed at this time Patient afebrile, absent leukocytosis LE appears stable Podiatry will continue to follow with wellness checks
[2017-10-31] MEDS: Oxycodone/Acetaminophen 5/325 mg Tab PO PRN ×2 (12:10→18:35)
--- NOTE | 2017-10-31 16:37 | CP.PCM.CON ---
History of Present Illness - History of Present Illness History of Present Illness: General surgery consult for Dr. Lanie Antunez-PGY-1 Pt S & E at bedside. 32M w/PMH sig for DM & recent R foot/ankle surgery consulted for Right inguinal mass. Pt reports recent R foot/ankle surgery, with sudden onset of R inguinal pain x 5 days. Pain was constant, non radiating, severe but improved over last few days. Admits to fevers, chills, nausea and bilious emesis prior to evaluation. Denies changes in bowel habits, urinary habits, other complaints. PMH: DM PSH: Right foot/ankle surgery (recent) All: NKDA SH: Denies ETOH use, admits to tobacco use, 1/2ppd x 7 yrs, admits to occasional MJ use. Past Patient History - Past Medical History & Family History Past Medical History?: Yes - Past Social History Smoking Status: Heavy Smoker > 10 Cigarettes Daily Alcohol: None Drugs: Cannabis - PULMONARY Hx Respiratory Disorders: No - NEUROLOGICAL Hx Neurological Disorder: No - HEENT Hx HEENT Problems: No - RENAL Hx Chronic Kidney Disease: No - ENDOCRINE/METABOLIC Hx Diabetes Mellitus Type 1: Yes - HEMATOLOGICAL/ONCOLOGICAL Hx Blood Disorders: No - INTEGUMENTARY Hx Dermatological Problems: Yes Other/Comment: diabetic lt foot ulcer - MUSCULOSKELETAL/RHEUMATOLOGICAL Hx Falls: No - GASTROINTESTINAL Hx Gastrointestinal Disorders: No Other/Comment: HX: NAUSEA FROM PAIN MED. - GENITOURINARY/GYNECOLOGICAL Hx Genitourinary Disorders: No - PSYCHIATRIC Hx Substance Use: Yes (smokes marihuana occasionally) - SURGICAL HISTORY Hx Surgeries: Yes Other/Comment: DEBRIDEMENT OF RIGHT FOOT WOUNDS X2-BOTTOM OF FOOT AND OUTER SIDE OF FOOT. - ANESTHESIA Hx Anesthesia: Yes Hx Anesthesia Reactions: No Hx Malignant Hyperthermia: No Meds Allergies/Adverse Reactions: Allergies Allergy/AdvReac Type Severity Reaction Status Date / Time No Known Allergies Allergy Verified 08/22/17 12:01 - Medications Medications: Current Medications Heparin Sodium (Porcine) (Heparin) 5,000 units SC Q8 [facility] Last Admin: 10/31/17 14:00 Dose: Not Given Ibuprofen (Motrin Tab) 600 mg PO TID PRN PRN Reason: Pain, Mild (1-3) Last Admin: 10/30/17 14:13 Dose: 600 mg Insulin Aspart (Novolog) 0 unit SC ACHS [facility] PRN Reason: Protocol Last Admin: 10/31/17 11:58 Dose: Not Given Insulin Aspart (Novolog) 10 unit SC TIDAC [facility] Last Admin: 10/31/17 12:13 Dose: 10 unit Ondansetron HCl (Zofran Inj) 4 mg IVP Q6H PRN PRN Reason: Nausea/Vomiting Last Admin: 10/30/17 08:42 Dose: 4 mg Oxycodone/Acetaminophen (Percocet 5/325 Mg Tab) 1 tab PO Q4H PRN PRN Reason: Pain, moderate (4-7) Stop: 11/02/17 17:52 Last Admin: 10/31/17 12:10 Dose: 1 tab Physical Exam - Constitutional Appears: Well, Non-toxic, No Acute Distress - Head Exam Head Exam: ATRAUMATIC, NORMAL INSPECTION, NORMOCEPHALIC - Eye Exam Eye Exam: EOMI, Normal appearance - ENT Exam ENT Exam: Mucous Membranes Moist, Normal Exam - Neck Exam Neck exam: Positive for: Full Rom, Normal Inspection - Respiratory Exam Respiratory Exam: Clear to Auscultation Bilateral, NORMAL BREATHING PATTERN. absent: Rales, Rhonchi, Wheezes, Respiratory Distress - Cardiovascular Exam Cardiovascular Exam: REGULAR RHYTHM, +S1, +S2 - GI/Abdominal Exam GI & Abdominal Exam: Soft, Tenderness (Right inguinal mass, slightly tender to deep palpation, no bowel sounds). absent: Distended, Firm, Guarding, Hernia, Rebound, Rigid - Extremities Exam Extremities exam: Negative for: normal inspection (RLE with metal external fixation device and dressing in place- Clean/dry/intact) - Neurological Exam Neurological exam: Alert, CN II-XII Intact, Oriented x3 - Psychiatric Exam Psychiatric exam: Normal Affect, Normal Mood - Skin Skin Exam: Dry, Intact, Normal Color, Warm Results - Vital Signs Recent Vital Signs: Last Vital Signs Temp 98 F 10/31/17 07:54 Pulse 87 10/31/17 07:54 Resp 20 10/31/17 07:54 BP 135/84 10/31/17 07:54 Pulse Ox 96 10/31/17 07:54 - Labs Result Diagrams: 10/31/17 07:34 10/31/17 07:34 Labs: Laboratory Results - last 24 hr 10/30/17 10/30/17 10/31/17 16:22 21:25 07:31 WBC RBC Hgb Hct MCV MCH MCHC RDW Plt Count MPV Neut % (Auto) Lymph % (Auto) [place] % (Auto) Eos % (Auto) Baso % (Auto) Neut # Lymph # [place] # Eos # Baso # Sodium Potassium Chloride Carbon Dioxide Anion Gap BUN Creatinine Est GFR ( Amer) Est GFR (Non-Af Amer) POC Glucose (mg/dL) 310 H 180 H 184 H Random Glucose Calcium Total Bilirubin AST ALT Alkaline Phosphatase Total Protein Albumin Globulin Albumin/Globulin Ratio 10/31/17 10/31/17 10/31/17 07:34 07:34 10:52 WBC 5.6 RBC 3.99 L Hgb 11.6 L Hct 33.5 L MCV 83.8 MCH 29.0 MCHC 34.6 RDW 15.9 H Plt Count 297 MPV 8.2 Neut % (Auto) 55.7 Lymph % (Auto) 33.2 [place] % (Auto) 8.7 Eos % (Auto) 2.1 Baso % (Auto) 0.3 Neut # 3.1 Lymph # 1.8 [place] # 0.5 Eos # 0.1 Baso # 0.0 Sodium 135 Potassium 4.4 Chloride 100 Carbon Dioxide 27 Anion Gap 13 BUN 15 Creatinine 0.7 L Est GFR ( Amer) > 60 Est GFR (Non-Af Amer) > 60 POC Glucose (mg/dL) 116 H Random Glucose 191 H Calcium 9.0 Total Bilirubin 0.4 AST 14 L ALT 16 L Alkaline Phosphatase 109 Total Protein 7.5 Albumin 3.3 L Globulin 4.1 H Albumin/Globulin Ratio 0.8 L Assessment & Plan - Assessment and Plan (Free Text) Assessment: 32M w/PMH sig for DM and recent R foot/ankle surgery with Right inguinal mass, likely reactive swelling of lymph node Plan: No surgical intervention at this time Cont pain mgmt Further mgmt as per primary team Thank you for this interesting consult Please re-consult as needed COLT attending Harmony, PGY1 - Date & Time Date: 10/31/17 Time: 16:37
[2017-10-31] MEDS ORDERED: Dextrose 50% SYRINGE Inj (50 ml) IV STA (16:41)
[2017-10-31] MEDS ORDERED: Dextrose 50% SYRINGE Inj (50 ml) ONE (16:44)
[2017-11-01] MEDS: Oxycodone/Acetaminophen 5/325 mg Tab PO PRN ×3 (00:17→18:55)
[2017-11-01 07:42] LABS: BASO % 0.4 % (0.0-2.0); EOS # 0.1 K/uL (0.0-0.7); HEMOGLOBIN 11.3 g/dL (12.0-18.0); LYMPH # 2.5 K/uL (1.0-4.3); LYMPH % 37.5 % (20.0-40.0); MEAN CELL VOLUME 83.6 fL (80.0-94.0); MEAN CORPUSCULAR HEMOGLOBIN 29.1 pg (27.0-31.0); MEAN CORPUSCULAR HGB CONC 34.8 g/dL (33.0-37.0); MEAN PLATELET VOLUME 8.2 fL (7.2-11.7); MONO # 0.6 K/uL (0.0-0.8); MONO % 9.6 % (0.0-10.0); NEUT # 3.3 K/uL (1.8-7.0); NEUT % 50.5 % (50.0-75.0); RBC 3.87 Mil/uL (4.40-5.90); RED CELL DISTRIBUTION WIDTH 15.8 % (11.5-14.5); WHITE BLOOD COUNT 6.5 K/uL (4.8-10.8)
[2017-11-01 07:55] LABS: ALBUMIN 3.4 g/dL (3.5-5.0); ALT/SGPT 16 U/L (21-72); AST/SGOT 16 U/L (17-59); BLOOD UREA NITROGEN 13 mg/dL (9-20); GFR AFRICAN-AMERICAN > 60; GFR NON-AFRICAN AMERICAN > 60
[2017-11-01] MEDS: (Novolog) Insulin Aspart, Recombinant 100 u/ml 10 ml vial SC SCH ×4 (07:55→22:20)
[2017-11-01 08:09] LABS: ALB/GLOB RATIO 0.8 (1.0-2.1)
--- NOTE | 2017-11-01 11:38 | CP.PCM.PN ---
Subjective - Date & Time of Evaluation Date of Evaluation: 11/01/17 Time of Evaluation: 11:36 - Subjective Subjective: Medicine progress note for Dr. Cochran's service Patient was seen and examined at bedside in no acute distress. Patient reports feeling better today, and says his groin region is less painful today. Patient otherwise has not complaints. Patient denies chest pain, abdominal pain, shortness of breath, nausea, vomiting, fevers, and chills. Objective - Vital Signs/Intake and Output Vital Signs (last 24 hours): Temp Pulse Resp BP Pulse Ox 98.7 F 84 20 125/87 100 11/01/17 08:45 11/01/17 08:45 11/01/17 08:45 11/01/17 08:45 11/01/17 08:45 Intake and Output: 11/01/17 11/01/17 06:59 18:59 Intake Total 550 240 Balance 550 240 - Medications Medications: Current Medications Heparin Sodium (Porcine) (Heparin) 5,000 units SC Q8 [facility] Last Admin: 11/01/17 06:15 Dose: Not Given Ciprofloxacin (Cipro 400mg/200ml Dsw) 400 mg in 200 mls @ 133 mls/hr IVPB Q12H [facility] Clindamycin Phosphate 300 mg/ (Sodium Chloride) 52 mls @ 100 mls/hr IVPB Q6H [facility] Ibuprofen (Motrin Tab) 600 mg PO TID PRN PRN Reason: Pain, Mild (1-3) Last Admin: 10/30/17 14:13 Dose: 600 mg Insulin Aspart (Novolog) 0 unit SC ACHS [facility] PRN Reason: Protocol Last Admin: 11/01/17 07:55 Dose: Not Given Insulin Aspart (Novolog) 10 unit SC TIDAC [facility] Last Admin: 10/31/17 17:10 Dose: Not Given Ondansetron HCl (Zofran Inj) 4 mg IVP Q6H PRN PRN Reason: Nausea/Vomiting Last Admin: 10/30/17 08:42 Dose: 4 mg Oxycodone/Acetaminophen (Percocet 5/325 Mg Tab) 1 tab PO Q4H PRN PRN Reason: Pain, moderate (4-7) Stop: 11/02/17 17:52 Last Admin: 11/01/17 11:00 Dose: 1 tab - Labs Labs: 11/01/17 07:14 11/01/17 07:14 - Additional Findings Additional findings: - Constitutional Appears: No Acute Distress - Head Exam Head Exam: ATRAUMATIC, NORMAL INSPECTION - Eye Exam Eye Exam: EOMI, Normal appearance - ENT Exam ENT Exam: Mucous Membranes Moist - Respiratory Exam Respiratory Exam: Clear to Ausculation Bilateral, NORMAL BREATHING PATTERN. absent: Rales, Rhonchi, Wheezes, Respiratory Distress - Cardiovascular Exam Cardiovascular Exam: REGULAR RHYTHM, +S1, +S2 - GI/Abdominal Exam GI & Abdominal Exam: Soft, Normal Bowel Sounds. absent: Distended, Tenderness - Exam Exam: absent: NORMAL INSPECTION (mild right groin tenderness; swelling/ fullness noted) - Extremities Exam Additional comments: RLE: External hardware with dressing noted; sensation intact; patient able to wiggle toes - Neurological Exam Neurological Exam: Alert, Awake, Oriented x3 - Psychiatric Exam Psychiatric exam: Normal Affect, Normal Mood - Skin Skin Exam: Dry, Intact, Warm Assessment and Plan - Assessment and Plan (Free Text) Plan: Assessment & Plan (1) Inguinal tenderness Assessment and Plan: Dopplers negative Abd/pelv CT imaging to rule out hernia: 4x2.4cm right inguinal fluid collection , possibly phlegmon or developing abscess; associated adjacent inflammatory changes and adenopathy; see full report Motrin PRN Pain significantly reduced General surgery consulted, Dr. Dela Cruz; recs appreciated * No surgical intervention at this time ID, Dr. Sy, consulted, recs appreciated * LE Xray to r/o infection of the s/p right foot surgery * Cipro 500mg IV Q12 and Clindamycin 300mg IV Q6 (started on 11/01; continue for total of 7 days) * Ordered RPR, HIV 1&2 Ab: f/u results F/u ID recommendations (2) Status post right foot surgery Assessment and Plan: F/U Podiatry recommendations. Patient has been following up outpatient. He is due to have external fixator removed on 11/06 (3) Diabetes mellitus Assessment and Plan: Accuchecks ISS at this time Continued home insulin- Humalog 10 units TID A1c 6.9 Heart Healthy diet- Mod consistent carb diet (4) MICAH (acute kidney injury) Assessment and Plan: Initially elevated Cr 2.3 -> 1.9 -> 1.1, Now resolved Likely secondary to vomiting and loss of appetite Now stable. Fluids discontinued. Monitor AM labs (5) Prophylactic measure Assessment and Plan: Heparin Q8 [facility] Prophylaxis not currently indicated
[2017-11-01] MEDS: Clindamycin 300 MG in Sodium Chloride 0.9% 50 ML IVPB SCH ×2 (13:54→18:58)
--- NOTE | 2017-11-01 14:51 | RAD ---
PROCEDURE: Radiographs of the right tibia and fibula. HISTORY: r/o infection COMPARISON: None available. TECHNIQUE: Frontal and lateral views obtained. FINDINGS: BONES: External fixation hardware noted. No acute fracture identified. Bony detail is partially obscured by overlying metallic hardware. No lytic or blastic osseous lesion. No periosteal reaction identified. JOINT SPACES: Unremarkable. OTHER FINDINGS: None. IMPRESSION: No plain radiographic evidence of osteomyelitis.
[2017-11-01] MEDS: Ciprofloxacin 400mg/200ml D5W 400 MG/200 ML BAG IVPB SCH (15:08)
--- NOTE | 2017-11-01 19:54 | CP.PCM.CON ---
History of Present Illness - History of Present Illness History of Present Illness: 32 yo male with long hx of DM Hx of Charcot foot repair 2 months ago has had multiple foot infections in the past Now has large inguinal lymph node- etiology unclear Review of Systems - Review of Systems All systems: reviewed and no additional remarkable complaints except - Constitutional Constitutional: absent: As Per HPI, Anorexia, Chills, Daytime Sleepiness, Excessive Sweating, Fatigue, Fever, Frequent Falls, Headache, Increased Appetite , Lethargy, Malaise, Night Sweats, Snoring, Sleep Apnea, Weight Gain, Weight Loss, Weakness, Other - EENT Eyes: absent: As Per HPI, Blind Spots, Blurred Vision, Change in Vision, Decreased Night Vision, Diplopia, Discharge, Dry Eye, Exophthalmos, Floaters, Irritation, Itchy Eyes, Loss of Peripheral Vision, Pain, Photophobia, Requires Corrective Lenses, Sees Flashes, Spots in Vision, Tunnel Vision, Other Visual Disturbances, Loss of Vision, Other Ears: absent: As Per HPI, Decreased Hearing, Ear Discharge, Ear Pain, Tinnitus, Abnormal Hearing, Disequilibrium, Dizziness, Other Nose/Mouth/Throat: absent: As Per HPI, Epistaxis, Nasal Congestion, Nasal Discharge, Nasal Obstruction, Nasal Trauma, Nose Pain, Post Nasal Drip, Sinus Pain, Sinus Pressure, Bleeding Gums, Change in Voice, Dental Pain, Dry Mouth, Dysphagia, Halitosis, Hoarsness, Lip Swelling, Mouth Lesions, Mouth Pain, Odynophagia, Sore Throat, Throat Swelling, Tongue Swelling, Facial Pain, Neck Pain, Neck Mass, Other Past Patient History - Past Medical History & Family History Past Medical History?: Yes - Past Social History Smoking Status: Heavy Smoker > 10 Cigarettes Daily Alcohol: None Drugs: Cannabis - PULMONARY Hx Respiratory Disorders: No - NEUROLOGICAL Hx Neurological Disorder: No - HEENT Hx HEENT Problems: No - RENAL Hx Chronic Kidney Disease: No - ENDOCRINE/METABOLIC Hx Diabetes Mellitus Type 1: Yes - HEMATOLOGICAL/ONCOLOGICAL Hx Blood Disorders: No - INTEGUMENTARY Hx Dermatological Problems: Yes Other/Comment: diabetic lt foot ulcer - MUSCULOSKELETAL/RHEUMATOLOGICAL Hx Falls: No - GASTROINTESTINAL Hx Gastrointestinal Disorders: No Other/Comment: HX: NAUSEA FROM PAIN MED. - GENITOURINARY/GYNECOLOGICAL Hx Genitourinary Disorders: No - PSYCHIATRIC Hx Substance Use: Yes (smokes marihuana occasionally) - SURGICAL HISTORY Hx Surgeries: Yes Other/Comment: DEBRIDEMENT OF RIGHT FOOT WOUNDS X2-BOTTOM OF FOOT AND OUTER SIDE OF FOOT. - ANESTHESIA Hx Anesthesia: Yes Hx Anesthesia Reactions: No Hx Malignant Hyperthermia: No Meds Allergies/Adverse Reactions: Allergies Allergy/AdvReac Type Severity Reaction Status Date / Time No Known Allergies Allergy Verified 08/22/17 12:01 - Medications Medications: Current Medications Heparin Sodium (Porcine) (Heparin) 5,000 units SC Q8 [facility] Last Admin: 11/01/17 13:55 Dose: 5,000 units Ciprofloxacin (Cipro 400mg/200ml Dsw) 400 mg in 200 mls @ 133 mls/hr IVPB Q12H [facility] Last Admin: 11/01/17 15:08 Dose: 133 mls/hr Clindamycin Phosphate 300 mg/ (Sodium Chloride) 52 mls @ 104 mls/hr IVPB Q6H [facility] Last Admin: 11/01/17 18:58 Dose: 104 mls/hr Ibuprofen (Motrin Tab) 600 mg PO TID PRN PRN Reason: Pain, Mild (1-3) Last Admin: 10/30/17 14:13 Dose: 600 mg Insulin Aspart (Novolog) 0 unit SC ACHS [facility] PRN Reason: Protocol Last Admin: 11/01/17 17:10 Dose: Not Given Insulin Aspart (Novolog) 10 unit SC TIDAC [facility] Last Admin: 10/31/17 17:10 Dose: Not Given Ondansetron HCl (Zofran Inj) 4 mg IVP Q6H PRN PRN Reason: Nausea/Vomiting Last Admin: 10/30/17 08:42 Dose: 4 mg Oxycodone/Acetaminophen (Percocet 5/325 Mg Tab) 1 tab PO Q4H PRN PRN Reason: Pain, moderate (4-7) Stop: 11/02/17 17:52 Last Admin: 11/01/17 18:55 Dose: 1 tab Physical Exam - Constitutional Appears: Chronically Ill - Head Exam Head Exam: NORMAL INSPECTION - Eye Exam Eye Exam: PERRL - ENT Exam ENT Exam: Mucous Membranes Dry - Neck Exam Neck exam: Negative for: Lymphadenopathy - Respiratory Exam Respiratory Exam: Decreased Breath Sounds - Cardiovascular Exam Cardiovascular Exam: REGULAR RHYTHM - GI/Abdominal Exam GI & Abdominal Exam: Diminished Bowel Sounds - Rectal Exam Rectal Exam: Deferred - Exam Exam: NORMAL INSPECTION - Extremities Exam Extremities exam: Positive for: pedal edema - Back Exam Back exam: absent: CVA tenderness (L), CVA tenderness (R) - Neurological Exam Neurological exam: Alert, CN II-XII Intact, Oriented x3, Reflexes Normal - Psychiatric Exam Psychiatric exam: Normal Mood - Skin Skin Exam: Dry Results - Vital Signs Recent Vital Signs: Last Vital Signs Temp 98.4 F 11/01/17 16:00 Pulse 86 11/01/17 16:00 Resp 20 11/01/17 16:00 BP 137/89 11/01/17 16:00 Pulse Ox 100 11/01/17 16:00 - Labs Result Diagrams: 11/01/17 07:14 11/01/17 07:14 Labs: Laboratory Results - last 24 hr 10/31/17 11/01/17 11/01/17 21:04 07:14 07:14 WBC 6.5 RBC 3.87 L Hgb 11.3 L Hct 32.4 L MCV 83.6 MCH 29.1 MCHC 34.8 RDW 15.8 H Plt Count 314 MPV 8.2 Neut % (Auto) 50.5 Lymph % (Auto) 37.5 Hopkins % (Auto) 9.6 Eos % (Auto) 2.0 Baso % (Auto) 0.4 Neut # 3.3 Lymph # 2.5 Hopkins # 0.6 Eos # 0.1 Baso # 0.0 Sodium 134 Potassium 4.1 Chloride 99 Carbon Dioxide 29 Anion Gap 10 BUN 13 Creatinine 0.8 Est GFR ( Amer) > 60 Est GFR (Non-Af Amer) > 60 POC Glucose (mg/dL) 121 H Random Glucose 97 Calcium 9.0 Total Bilirubin 0.4 AST 16 L ALT 16 L Alkaline Phosphatase 94 Total Protein 7.4 Albumin 3.4 L Globulin 4.0 H Albumin/Globulin Ratio 0.8 L 11/01/17 11/01/17 11/01/17 07:28 11:41 16:25 WBC RBC Hgb Hct MCV MCH MCHC RDW Plt Count MPV Neut % (Auto) Lymph % (Auto) Hopkins % (Auto) Eos % (Auto) Baso % (Auto) Neut # Lymph # Hopkins # Eos # Baso # Sodium Potassium Chloride Carbon Dioxide Anion Gap BUN Creatinine Est GFR ( Amer) Est GFR (Non-Af Amer) POC Glucose (mg/dL) 101 294 H 97 Random Glucose Calcium Total Bilirubin AST ALT Alkaline Phosphatase Total Protein Albumin Globulin Albumin/Globulin Ratio Assessment & Plan (1) Diabetes mellitus Status: Acute (2) Inguinal tenderness Status: Acute - Assessment and Plan (Free Text) Assessment: enlarged LN right groin is nonspecific uncclear if sexually active but will be screened for STD including LGV LN enlargement could be due to chronic inflammation and or infection of the foot / ankle consider doxycycline 100 mg PO BID empirically due to have fixator removed later this week consider bone scan/ ceretec scan and CT or MRI lower extremity to r/o chronic infection May eventully need Biopsy of LN
[2017-11-02] MEDS: Clindamycin 300 MG in Sodium Chloride 0.9% 50 ML IVPB SCH ×3 (01:20→12:41)
[2017-11-02] MEDS: Ciprofloxacin 400mg/200ml D5W 400 MG/200 ML BAG IVPB SCH ×2 (02:30→14:01)
[2017-11-02] MEDS: (Novolog) Insulin Aspart, Recombinant 100 u/ml 10 ml vial SC SCH ×4 (07:30→22:00)
--- NOTE | 2017-11-02 07:45 | CP.PCM.PN ---
Subjective - Date & Time of Evaluation Date of Evaluation: 11/02/17 Time of Evaluation: 07:41 - Subjective Subjective: PGY-[address] Cochran's service: Pt seen and examined at bedside. Nursing reports no acute events overnight. Patient states swollen groin does not hurt him unless "poked at." Patient otherwise has not complaints. Patient denies chest pain, abdominal pain, shortness of breath, nausea, vomiting, fevers, and chills. Objective - Vital Signs/Intake and Output Vital Signs (last 24 hours): Temp Pulse Resp BP Pulse Ox 98 F 87 20 136/83 99 11/02/17 00:12 11/02/17 00:12 11/02/17 00:12 11/02/17 00:12 11/02/17 00:12 Intake and Output: 11/02/17 11/02/17 06:59 18:59 Intake Total 550 540 Output Total 850 Balance 550 -310 - Medications Medications: Current Medications Heparin Sodium (Porcine) (Heparin) 5,000 units SC Q8 [facility] Last Admin: 11/02/17 06:18 Dose: 5,000 units Ciprofloxacin (Cipro 400mg/200ml Dsw) 400 mg in 200 mls @ 133 mls/hr IVPB Q12H [facility] Last Admin: 11/02/17 02:30 Dose: 133 mls/hr Clindamycin Phosphate 300 mg/ (Sodium Chloride) 52 mls @ 104 mls/hr IVPB Q6H [facility] Last Admin: 11/02/17 06:19 Dose: 104 mls/hr Ibuprofen (Motrin Tab) 600 mg PO TID PRN PRN Reason: Pain, Mild (1-3) Last Admin: 10/30/17 14:13 Dose: 600 mg Insulin Aspart (Novolog) 0 unit SC ACHS [facility] PRN Reason: Protocol Last Admin: 11/01/17 22:20 Dose: Not Given Insulin Aspart (Novolog) 10 unit SC TIDAC [facility] Last Admin: 10/31/17 17:10 Dose: Not Given Ondansetron HCl (Zofran Inj) 4 mg IVP Q6H PRN PRN Reason: Nausea/Vomiting Last Admin: 10/30/17 08:42 Dose: 4 mg Oxycodone/Acetaminophen (Percocet 5/325 Mg Tab) 1 tab PO Q4H PRN PRN Reason: Pain, moderate (4-7) Stop: 11/02/17 17:52 Last Admin: 11/01/17 18:55 Dose: 1 tab - Labs Labs: 11/01/17 07:14 11/01/17 07:14 - Additional Findings Additional findings: - Constitutional Appears: No Acute Distress - Head Exam Head Exam: ATRAUMATIC, NORMAL INSPECTION - Eye Exam Eye Exam: EOMI, Normal appearance - ENT Exam ENT Exam: Mucous Membranes Moist - Respiratory Exam Respiratory Exam: Clear to Ausculation Bilateral, NORMAL BREATHING PATTERN. absent: Rales, Rhonchi, Wheezes, Respiratory Distress - Cardiovascular Exam Cardiovascular Exam: REGULAR RHYTHM, +S1, +S2 - GI/Abdominal Exam GI & Abdominal Exam: Soft, Normal Bowel Sounds. absent: Distended, Tenderness - Exam Exam: absent: NORMAL INSPECTION (mild right groin tenderness; swelling/ fullness noted) - Extremities Exam Additional comments: RLE: External hardware with dressing noted; sensation intact; patient able to wiggle toes - Neurological Exam Neurological Exam: Alert, Awake, Oriented x3 - Psychiatric Exam Psychiatric exam: Normal Affect, Normal Mood - Skin Skin Exam: Dry, Intact, Warm Assessment and Plan - Assessment and Plan (Free Text) Plan: (1) Inguinal tenderness Assessment and Plan: Dopplers negative Abd/pelv CT imaging to rule out hernia: 4x2.4cm right inguinal fluid collection , possibly phlegmon or developing abscess; associated adjacent inflammatory changes and adenopathy; see full report Motrin PRN Pain significantly reduced General surgery consulted, Dr. Dela Cruz; recs appreciated * No surgical intervention at this time ID, Dr. Sy, consulted, recs appreciated * LE Xray to r/o infection of the s/p right foot surgery * Cipro 500mg IV Q12 and Clindamycin 300mg IV Q6 (started on 11/01; continue for total of 7 days) * Ordered RPR, HIV 1&2 Ab: f/u results * Consider Doxy 100mg PO BID * For chronic infection consider CT/Ceretec WBC scan F/u ID recommendations (2) Status post right foot surgery Assessment and Plan: F/U Podiatry recommendations. Patient has been following up outpatient. He is due to have external fixator removed on 11/06 (3) Diabetes mellitus Assessment and Plan: Accuchecks ISS at this time Continued home insulin- Humalog 10 units TID A1c 6.9 Heart Healthy diet- Mod consistent carb diet (4) MICAH (acute kidney injury) Assessment and Plan: Resolved Likely secondary to vomiting and loss of appetite Monitor AM labs (5) Prophylactic measure Assessment and Plan: Heparin Q8 [facility] Prophylaxis not currently indicated SCDs C/I due to recent surgery to leg Medical management per Dr. Cochran
[2017-11-02] MEDS: Oxycodone/Acetaminophen 5/325 mg Tab PO PRN (08:30)
[2017-11-02 08:44] LABS: BASO % 0.4 % (0.0-2.0); EOS # 0.1 K/uL (0.0-0.7); EOS % 2.4 % (0.0-4.0); HEMOGLOBIN 11.2 g/dL (12.0-18.0); LYMPH % 39.8 % (20.0-40.0); MEAN CELL VOLUME 84.3 fL (80.0-94.0); MEAN CORPUSCULAR HEMOGLOBIN 28.6 pg (27.0-31.0); MEAN PLATELET VOLUME 8.2 fL (7.2-11.7); MONO # 0.4 K/uL (0.0-0.8); MONO % 7.3 % (0.0-10.0); NEUT # 2.5 K/uL (1.8-7.0); NEUT % 50.1 % (50.0-75.0); RBC 3.91 Mil/uL (4.40-5.90); RED CELL DISTRIBUTION WIDTH 15.9 % (11.5-14.5); WHITE BLOOD COUNT 5.1 K/uL (4.8-10.8)
[2017-11-02 09:12] LABS: ALB/GLOB RATIO 0.9 (1.0-2.1); ALBUMIN 3.6 g/dL (3.5-5.0); ALT/SGPT 20 U/L (21-72); AST/SGOT 21 U/L (17-59); BLOOD UREA NITROGEN 16 mg/dL (9-20); CALCIUM 9.1 mg/dl (8.6-10.4); GFR AFRICAN-AMERICAN > 60; GFR NON-AFRICAN AMERICAN > 60
[2017-11-02] MEDS ORDERED: Oxycodone/Acetaminophen 5/325 mg Tab PO PRN ×2 (16:47→23:00)
[2017-11-02] MEDS: Clindamycin 300 MG in Sodium Chloride 0.9% 100 ML IVPB SCH (18:49)
[2017-11-03] MEDS ORDERED: Clindamycin 300 MG in Sodium Chloride 0.9% 100 ML IVPB SCH (01:00)
[2017-11-03] MEDS: Clindamycin 300 MG in Sodium Chloride 0.9% 100 ML IVPB SCH ×4 (01:06→19:44)
[2017-11-03] MEDS: Oxycodone/Acetaminophen 5/325 mg Tab PO PRN ×3 (01:52→17:41)
[2017-11-03] MEDS: Ciprofloxacin 400mg/200ml D5W 400 MG/200 ML BAG IVPB SCH ×2 (02:37→13:57)
--- NOTE | 2017-11-03 07:48 | CP.PCM.PN ---
Subjective - Date & Time of Evaluation Date of Evaluation: 11/03/17 Time of Evaluation: 07:44 - Subjective Subjective: PGY-[address] Cochran's service: Pt seen and examined at bedside. Nursing reports no acute events overnight. Patient reports increased pain in his right leg overnight, so he needed additional pain medication. Patient continues to state swollen groin does not hurt him unless palpated deeply. Patient otherwise has not complaints. Patient denies chest pain, abdominal pain, shortness of breath, nausea, vomiting, fevers , and chills. Objective - Vital Signs/Intake and Output Vital Signs (last 24 hours): Temp Pulse Resp BP Pulse Ox 97.7 F 79 20 137/92 H 100 11/03/17 00:00 11/03/17 00:00 11/03/17 00:00 11/03/17 00:00 11/03/17 00:00 Intake and Output: 11/03/17 11/03/17 06:59 18:59 Intake Total 700 Balance 700 - Medications Medications: Current Medications Heparin Sodium (Porcine) (Heparin) 5,000 units SC Q8 [facility] Last Admin: 11/03/17 06:00 Dose: Not Given Ciprofloxacin (Cipro 400mg/200ml Dsw) 400 mg in 200 mls @ 133 mls/hr IVPB Q12H [facility] Last Admin: 11/03/17 02:37 Dose: 133 mls/hr Clindamycin Phosphate 300 mg/ (Sodium Chloride) 102 mls @ 204 mls/hr IVPB Q6H [facility] 234 [facility]S AT [facility] Last Admin: 11/03/17 07:03 Dose: 204 mls/hr Ibuprofen (Motrin Tab) 600 mg PO TID PRN PRN Reason: Pain, Mild (1-3) Last Admin: 10/30/17 14:13 Dose: 600 mg Insulin Aspart (Novolog) 0 unit SC ACHS [facility] PRN Reason: Protocol Last Admin: 11/02/17 22:00 Dose: Not Given Insulin Aspart (Novolog) 10 unit SC TIDAC [facility] 234 [facility]S [facility] Last Admin: 10/31/17 17:10 Dose: Not Given Ondansetron HCl (Zofran Inj) 4 mg IVP Q6H PRN PRN Reason: Nausea/Vomiting Last Admin: 10/30/17 08:42 Dose: 4 mg Oxycodone/Acetaminophen (Percocet 5/325 Mg Tab) 2 tab PO Q6H PRN PRN Reason: Pain, severe (8-10) Stop: 11/05/17 23:01 Last Admin: 11/03/17 01:52 Dose: 2 tab Oxycodone/Acetaminophen (Percocet 5/325 Mg Tab) 1 tab PO Q6H PRN PRN Reason: Pain, moderate (4-7) Stop: 11/05/17 23:01 - Labs Labs: 11/02/17 08:37 11/02/17 08:37 - Additional Findings Additional findings: - Constitutional Appears: No Acute Distress - Head Exam Head Exam: ATRAUMATIC, NORMAL INSPECTION - Eye Exam Eye Exam: EOMI, Normal appearance - ENT Exam ENT Exam: Mucous Membranes Moist - Respiratory Exam Respiratory Exam: Clear to Ausculation Bilateral, NORMAL BREATHING PATTERN. absent: Rales, Rhonchi, Wheezes, Respiratory Distress - Cardiovascular Exam Cardiovascular Exam: REGULAR RHYTHM, +S1, +S2 - GI/Abdominal Exam GI & Abdominal Exam: Soft, Normal Bowel Sounds. absent: Distended, Tenderness - Exam Exam: absent: NORMAL INSPECTION (mild right groin tenderness; swelling/ fullness noted) - Extremities Exam Additional comments: RLE: External hardware with dressing noted; sensation intact; patient able to wiggle toes - Neurological Exam Neurological Exam: Alert, Awake, Oriented x3 - Psychiatric Exam Psychiatric exam: Normal Affect, Normal Mood - Skin Skin Exam: Dry, Intact, Warm Assessment and Plan - Assessment and Plan (Free Text) Plan: (1) Inguinal tenderness Assessment and Plan: Dopplers negative Abd/pelv CT imaging to rule out hernia: 4x2.4cm right inguinal fluid collection , possibly phlegmon or developing abscess; associated adjacent inflammatory changes and adenopathy; see full report Motrin PRN Pain significantly reduced General surgery consulted, Dr. Dela Cruz; recs appreciated * No surgical intervention at this time ID, Dr. Sy, consulted, recs appreciated * LE Xray to r/o infection of the s/p right foot surgery * Cipro 500mg IV Q12 and Clindamycin 300mg IV Q6 (started on 11/01; continue for total of 7 days) * Ordered RPR, HIV 1&2 Ab: f/u results * Consider Doxy 100mg PO BID * For chronic infection consider CT/Ceretec WBC scan F/u ID recommendations Blood cultures: negative x 5 days (2) Status post right foot surgery Assessment and Plan: F/U Podiatry recommendations. Patient has been following up outpatient. He is due to have external fixator removed on 11/06 (3) Diabetes mellitus Assessment and Plan: Accuchecks ISS at this time Elevated BG Restart home insulin- Humalog 5 units TID A1c 6.9 Heart Healthy diet- Mod consistent carb diet (4) MICAH (acute kidney injury) Assessment and Plan: Resolved Likely secondary to vomiting and loss of appetite Monitor AM labs (5) Prophylactic measure Assessment and Plan: Heparin Q8 [facility] Prophylaxis not currently indicated SCDs C/I due to recent surgery to leg Medical management per Dr. Cochran
[2017-11-03] MEDS: (Novolog) Insulin Aspart, Recombinant 100 u/ml 10 ml vial SC SCH ×4 (08:23→22:33)
[2017-11-03 08:26] LABS: BASO % 0.3 % (0.0-2.0); EOS # 0.2 K/uL (0.0-0.7); EOS % 2.9 % (0.0-4.0); HEMOGLOBIN 11.2 g/dL (12.0-18.0); LYMPH # 2.4 K/uL (1.0-4.3); LYMPH % 39.2 % (20.0-40.0); MEAN CELL VOLUME 84.1 fL (80.0-94.0); MEAN CORPUSCULAR HEMOGLOBIN 28.4 pg (27.0-31.0); MEAN CORPUSCULAR HGB CONC 33.8 g/dL (33.0-37.0); MEAN PLATELET VOLUME 8.1 fL (7.2-11.7); MONO # 0.5 K/uL (0.0-0.8); MONO % 8.2 % (0.0-10.0); NEUT % 49.4 % (50.0-75.0); RBC 3.95 Mil/uL (4.40-5.90); RED CELL DISTRIBUTION WIDTH 15.9 % (11.5-14.5)
[2017-11-03 08:47] LABS: ALB/GLOB RATIO 0.9 (1.0-2.1); ALBUMIN 3.7 g/dL (3.5-5.0); ALT/SGPT 17 U/L (21-72); AST/SGOT 17 U/L (17-59); BLOOD UREA NITROGEN 17 mg/dL (9-20); CALCIUM 8.8 mg/dl (8.6-10.4); GFR AFRICAN-AMERICAN > 60; GFR NON-AFRICAN AMERICAN > 60
--- NOTE | 2017-11-03 15:56 | CP.PCM.PN ---
Subjective - Date & Time of Evaluation Date of Evaluation: 11/03/17 Time of Evaluation: 07:00 - Subjective Subjective: c/o swelling to right groin no fever or chills awake alert Objective - Vital Signs/Intake and Output Vital Signs (last 24 hours): Temp Pulse Resp BP Pulse Ox 98.2 F 77 18 117/79 100 11/03/17 08:35 11/03/17 08:35 11/03/17 08:35 11/03/17 08:35 11/03/17 08:35 Intake and Output: 11/03/17 11/03/17 06:59 18:59 Intake Total 1250 500 Output Total 650 Balance 600 500 - Medications Medications: Current Medications Heparin Sodium (Porcine) (Heparin) 5,000 units SC Q8 [facility] Last Admin: 11/03/17 13:58 Dose: Not Given Ciprofloxacin (Cipro 400mg/200ml Dsw) 400 mg in 200 mls @ 133 mls/hr IVPB Q12H [facility] Last Admin: 11/03/17 13:57 Dose: 133 mls/hr Clindamycin Phosphate 300 mg/ (Sodium Chloride) 102 mls @ 204 mls/hr IVPB Q6H [facility] Last Admin: 11/03/17 13:57 Dose: 204 mls/hr Ibuprofen (Motrin Tab) 600 mg PO TID PRN PRN Reason: Pain, Mild (1-3) Last Admin: 10/30/17 14:13 Dose: 600 mg Insulin Aspart (Novolog) 0 unit SC ACHS [facility] PRN Reason: Protocol Last Admin: 11/03/17 11:56 Dose: Not Given Insulin Aspart (Novolog) 10 unit SC TIDAC [facility] Last Admin: 10/31/17 17:10 Dose: Not Given Ondansetron HCl (Zofran Inj) 4 mg IVP Q6H PRN PRN Reason: Nausea/Vomiting Last Admin: 10/30/17 08:42 Dose: 4 mg Oxycodone/Acetaminophen (Percocet 5/325 Mg Tab) 2 tab PO Q6H PRN PRN Reason: Pain, severe (8-10) Stop: 11/05/17 23:01 Last Admin: 11/03/17 11:36 Dose: 2 tab Oxycodone/Acetaminophen (Percocet 5/325 Mg Tab) 1 tab PO Q6H PRN PRN Reason: Pain, moderate (4-7) Stop: 11/05/17 23:01 - Labs Labs: 11/03/17 08:16 11/03/17 08:16 - Constitutional Appears: Non-toxic, Chronically Ill - Head Exam Head Exam: NORMOCEPHALIC - Eye Exam Eye Exam: PERRL - ENT Exam ENT Exam: Mucous Membranes Dry - Neck Exam Neck Exam: absent: Lymphadenopathy - Respiratory Exam Respiratory Exam: Decreased Breath Sounds - Cardiovascular Exam Cardiovascular Exam: REGULAR RHYTHM - GI/Abdominal Exam GI & Abdominal Exam: Distended - Rectal Exam Rectal Exam: Deferred - Exam Exam: NORMAL INSPECTION - Extremities Exam Extremities Exam: Pedal Edema - Back Exam Back Exam: absent: CVA tenderness (L), CVA tenderness (R) - Neurological Exam Neurological Exam: Alert, Awake, Oriented x3 Neuro motor strength exam: Left Upper Extremity: 5, Right Upper Extremity: 5, Left Lower Extremity: 5, Right Lower Extremity: 5 - Psychiatric Exam Psychiatric exam: Normal Mood - Skin Skin Exam: Dry Assessment and Plan (1) Diabetes mellitus Status: Acute (2) Inguinal tenderness Status: Acute - Assessment and Plan (Free Text) Assessment: 32 yo male with long hx of DM Hx of Charcot foot repair 2 months ago has had multiple foot infections in the past Now has large inguinal lymph node- etiology unclear work up in progress cont iv antibiotics
[2017-11-03 17:22] VITALS: RESP 20
[2017-11-03] MEDS ORDERED: Glucagon Recombinant 1 mg Inj IM PRN (17:41)
[2017-11-03] MEDS ORDERED: Dextrose 50% SYRINGE Inj (50 ml) IV PRN (17:41)
[2017-11-04] MEDS: Oxycodone/Acetaminophen 5/325 mg Tab PO PRN ×3 (00:50→18:24)
[2017-11-04] MEDS: Clindamycin 300 MG in Sodium Chloride 0.9% 100 ML IVPB SCH ×4 (01:04→18:18)
[2017-11-04] MEDS: Ciprofloxacin 400mg/200ml D5W 400 MG/200 ML BAG IVPB SCH ×2 (02:36→13:56)
[2017-11-04] MEDS: (Novolog) Insulin Aspart, Recombinant 100 u/ml 10 ml vial SC SCH ×7 (07:51→21:51)
[2017-11-04 08:35] LABS: BASO % 0.3 % (0.0-2.0); EOS # 0.2 K/uL (0.0-0.7); EOS % 3.9 % (0.0-4.0); HEMOGLOBIN 10.9 g/dL (12.0-18.0); LYMPH # 2.6 K/uL (1.0-4.3); LYMPH % 44.6 % (20.0-40.0); MEAN CELL VOLUME 84.7 fL (80.0-94.0); MEAN CORPUSCULAR HEMOGLOBIN 27.9 pg (27.0-31.0); MEAN PLATELET VOLUME 8.3 fL (7.2-11.7); MONO # 0.5 K/uL (0.0-0.8); MONO % 8.4 % (0.0-10.0); NEUT # 2.5 K/uL (1.8-7.0); NEUT % 42.8 % (50.0-75.0); RBC 3.9 Mil/uL (4.40-5.90); RED CELL DISTRIBUTION WIDTH 15.9 % (11.5-14.5); WHITE BLOOD COUNT 5.9 K/uL (4.8-10.8)
[2017-11-04 08:50] LABS: ALB/GLOB RATIO 0.9 (1.0-2.1); ALBUMIN 3.6 g/dL (3.5-5.0); ALT/SGPT 15 U/L (21-72); AST/SGOT 17 U/L (17-59); BLOOD UREA NITROGEN 16 mg/dL (9-20); GFR AFRICAN-AMERICAN > 60; GFR NON-AFRICAN AMERICAN > 60; MAGNESIUM 1.9 mg/dL (1.6-2.3)
[2017-11-04] MEDS ORDERED: HEPARIN IVP ONE (11:00)
[2017-11-04] MEDS ORDERED: PREMIXED IVP ONE (11:00)
--- NOTE | 2017-11-04 13:07 | CP.PCM.PN ---
Subjective - Date & Time of Evaluation Date of Evaluation: 11/04/17 Time of Evaluation: 07:35 - Subjective Subjective: Medicine progress note for Dr. Cochran's service Patient was seen and examined at bedside in no acute distress. Patient reports feeling okay and has no complaints except for mild constipation. Patient denies chest pain, abdominal pain, shortness of breath, nausea, vomiting, fevers, and chills. Objective - Vital Signs/Intake and Output Vital Signs (last 24 hours): Temp Pulse Resp BP Pulse Ox 97.7 F 75 20 120/79 98 11/04/17 08:00 11/04/17 08:00 11/04/17 08:00 11/04/17 08:00 11/04/17 08:00 Intake and Output: 11/04/17 11/04/17 06:59 18:59 Intake Total 1100 Output Total 500 Balance 600 - Medications Medications: Current Medications Dextrose (Dextrose 50% Inj) 0 ml IV STAT PRN; Protocol PRN Reason: Hypoglycemia Protocol Dextrose (Glutose 15) 0 gm PO ONCE PRN; Protocol PRN Reason: Hypoglycemia Protocol Glucagon (Glucagen Diagnostic Kit) 0 mg IM STAT PRN; Protocol PRN Reason: Hypoglycemia Protocol Heparin Sodium (Porcine) (Heparin) 5,000 units SC Q8 [facility] Last Admin: 11/04/17 06:00 Dose: Not Given Ciprofloxacin (Cipro 400mg/200ml Dsw) 400 mg in 200 mls @ 133 mls/hr IVPB Q12H [facility] Last Admin: 11/04/17 02:36 Dose: 133 mls/hr Clindamycin Phosphate 300 mg/ (Sodium Chloride) 102 mls @ 204 mls/hr IVPB Q6H [facility] Last Admin: 11/04/17 07:02 Dose: 204 mls/hr Dextrose (Dextrose 5% In Water 1000 Ml) 1,000 mls @ 0 mls/hr IV .Q0M PRN; Protocol; Per Protocol PRN Reason: Hypoglycemia Protocol Ibuprofen (Motrin Tab) 600 mg PO TID PRN PRN Reason: Pain, Mild (1-3) Last Admin: 10/30/17 14:13 Dose: 600 mg Insulin Aspart (Novolog) 0 unit SC ACHS [facility] PRN Reason: Protocol Last Admin: 11/04/17 12:35 Dose: 4 unit Insulin Aspart (Novolog) 5 unit SC TIDAC [facility] Last Admin: 11/04/17 12:36 Dose: 5 unit Ondansetron HCl (Zofran Inj) 4 mg IVP Q6H PRN PRN Reason: Nausea/Vomiting Last Admin: 10/30/17 08:42 Dose: 4 mg Oxycodone/Acetaminophen (Percocet 5/325 Mg Tab) 2 tab PO Q6H PRN PRN Reason: Pain, severe (8-10) Stop: 11/05/17 23:01 Last Admin: 11/04/17 12:15 Dose: 2 tab Oxycodone/Acetaminophen (Percocet 5/325 Mg Tab) 1 tab PO Q6H PRN PRN Reason: Pain, moderate (4-7) Stop: 11/05/17 23:01 - Labs Labs: 11/04/17 08:18 11/04/17 08:18 Assessment and Plan - Assessment and Plan (Free Text) Plan: Assessment & Plan (1) Inguinal tenderness Assessment and Plan: Dopplers negative Abd/pelv CT imaging to rule out hernia: 4x2.4cm right inguinal fluid collection , possibly phlegmon or developing abscess; associated adjacent inflammatory changes and adenopathy; see full report Motrin PRN Pain significantly reduced General surgery consulted, Dr. Dela Cruz; recs appreciated * No surgical intervention at this time ID, Dr. Sy, consulted, recs appreciated * LE Xray to r/o infection of the s/p right foot surgery * Cipro 500mg IV Q12 and Clindamycin 300mg IV Q6 (started on 11/01; continue for total of 7 days) * HIV 1&2 Ab: negative * Blood cultures: negative x 5 days * Can consider discharging on Doxycycline 100mg PO BIDx10 days F/u ID recommendations (2) Status post right foot surgery Assessment and Plan: F/U Podiatry recommendations. Patient has been following up outpatient. He is due to have external fixator removed on 11/06- patient must f/u on 11/06 as outpatient (3) Diabetes mellitus Assessment and Plan: Accuchecks ISS at this time Continued home insulin- Humalog 10 units TID A1c 6.9 Heart Healthy diet- Mod consistent carb diet (4) MICAH (acute kidney injury) Assessment and Plan: Resolved Likely secondary to vomiting and loss of appetite Monitor AM labs (5) Prophylactic measure Assessment and Plan: Heparin Q8 [facility] Prophylaxis not currently indicated SCDs C/I due to recent surgery to leg
[2017-11-05] MEDS: Clindamycin 300 MG in Sodium Chloride 0.9% 100 ML IVPB SCH ×3 (00:11→12:47)
[2017-11-05] MEDS: Oxycodone/Acetaminophen 5/325 mg Tab PO PRN ×3 (00:40→16:58)
[2017-11-05] MEDS: Ciprofloxacin 400mg/200ml D5W 400 MG/200 ML BAG IVPB SCH ×2 (02:30→13:30)
[2017-11-05] MEDS: (Novolog) Insulin Aspart, Recombinant 100 u/ml 10 ml vial SC SCH ×6 (07:45→17:01)
[2017-11-05 08:23] LABS: BASO % 0.6 % (0.0-2.0); EOS # 0.2 K/uL (0.0-0.7); EOS % 3.9 % (0.0-4.0); HEMOGLOBIN 10.8 g/dL (12.0-18.0); LYMPH # 2.3 K/uL (1.0-4.3); LYMPH % 42.4 % (20.0-40.0); MEAN CELL VOLUME 84.1 fL (80.0-94.0); MEAN CORPUSCULAR HEMOGLOBIN 28.5 pg (27.0-31.0); MEAN CORPUSCULAR HGB CONC 33.9 g/dL (33.0-37.0); MEAN PLATELET VOLUME 8.2 fL (7.2-11.7); MONO # 0.5 K/uL (0.0-0.8); NEUT # 2.4 K/uL (1.8-7.0); NEUT % 44.1 % (50.0-75.0); RBC 3.8 Mil/uL (4.40-5.90); RED CELL DISTRIBUTION WIDTH 15.8 % (11.5-14.5); WHITE BLOOD COUNT 5.4 K/uL (4.8-10.8)
[2017-11-05 08:43] LABS: ALB/GLOB RATIO 0.9 (1.0-2.1); ALBUMIN 3.6 g/dL (3.5-5.0); ALT/SGPT 20 U/L (21-72); AST/SGOT 29 U/L (17-59); BLOOD UREA NITROGEN 22 mg/dL (9-20); CALCIUM 9.1 mg/dl (8.6-10.4); GFR AFRICAN-AMERICAN > 60; GFR NON-AFRICAN AMERICAN > 60
--- NOTE | 2017-11-05 10:35 | NM ---
PROCEDURE: Ceretec labeled white blood cell study HISTORY: r/o chronic infection; groin LN enlargement COMPARISON: 10/30/2017 CT abdomen and pelvis. Summary of findings on the comparison examination: 4 x 2.4 cm right inguinal fluid collection possibly phlegmon or developing abscess. TECHNIQUE: 17.1 mCi technetium 99 M Ceretec labeled white blood cells administered intravenously. Imaging of the body obtained at 2 and 19 hours per institutional protocol. FINDINGS: Thorax: Unremarkable. Abdomen retroperitoneum and pelvis: No Ceretec avid structures identified. Lower extremities, upper extremities: No suspicious abnormalities. Other: No abnormalities identified in the inguinal regions. IMPRESSION: Negative Ceretec labeled white blood cell examination.
--- NOTE | 2017-11-05 10:54 | CP.PCM.PN ---
Subjective - Date & Time of Evaluation Date of Evaluation: 11/05/17 Time of Evaluation: 10:30 - Subjective Subjective: Podiatry Progress Note- Dr. Tavarez 32 year old male diabetic male patient seen at bedside this AM for wellness check RLE. Pt is seen resting in bed at time of visit with RLE elevated on pillow. Pt denies any pain or discomfort the foot or leg at this time. Deneis f/ n/v/c/sob/cp/weakness or dizziness at this time. Does complain of persistent groin pain but does say pain is much improved. Denies f/n/v/c/sob/cp/weakness or dizziness at this time. Offers no other complaints. Objective - Vital Signs/Intake and Output Vital Signs (last 24 hours): Temp Pulse Resp BP Pulse Ox 97.6 F 62 20 120/76 98 11/05/17 08:00 11/05/17 08:00 11/05/17 08:00 11/05/17 08:00 11/05/17 08:00 Intake and Output: 11/05/17 11/05/17 06:59 18:59 Intake Total 450 Balance 450 - Medications Medications: Current Medications Dextrose (Dextrose 50% Inj) 0 ml IV STAT PRN; Protocol PRN Reason: Hypoglycemia Protocol Dextrose (Glutose 15) 0 gm PO ONCE PRN; Protocol PRN Reason: Hypoglycemia Protocol Docusate Sodium (Colace) 100 mg PO BID [facility] Last Admin: 11/05/17 10:25 Dose: 100 mg Glucagon (Glucagen Diagnostic Kit) 0 mg IM STAT PRN; Protocol PRN Reason: Hypoglycemia Protocol Heparin Sodium (Porcine) (Heparin) 5,000 units SC Q8 [facility] Last Admin: 11/05/17 05:17 Dose: Not Given Ciprofloxacin (Cipro 400mg/200ml Dsw) 400 mg in 200 mls @ 133 mls/hr IVPB Q12H [facility] Last Admin: 11/05/17 02:30 Dose: 133 mls/hr Clindamycin Phosphate 300 mg/ (Sodium Chloride) 102 mls @ 204 mls/hr IVPB Q6H [facility] Last Admin: 11/05/17 07:44 Dose: 204 mls/hr Dextrose (Dextrose 5% In Water 1000 Ml) 1,000 mls @ 0 mls/hr IV .Q0M PRN; Protocol; Per Protocol PRN Reason: Hypoglycemia Protocol Ibuprofen (Motrin Tab) 600 mg PO TID PRN PRN Reason: Pain, Mild (1-3) Last Admin: 10/30/17 14:13 Dose: 600 mg Insulin Aspart (Novolog) 0 unit SC ACHS [facility] PRN Reason: Protocol Last Admin: 11/05/17 07:45 Dose: Not Given Insulin Aspart (Novolog) 5 unit SC TIDAC [facility] Last Admin: 11/05/17 07:45 Dose: Not Given Ondansetron HCl (Zofran Inj) 4 mg IVP Q6H PRN PRN Reason: Nausea/Vomiting Last Admin: 10/30/17 08:42 Dose: 4 mg Oxycodone/Acetaminophen (Percocet 5/325 Mg Tab) 2 tab PO Q6H PRN PRN Reason: Pain, severe (8-10) Stop: 11/05/17 23:01 Last Admin: 11/05/17 10:25 Dose: 2 tab Oxycodone/Acetaminophen (Percocet 5/325 Mg Tab) 1 tab PO Q6H PRN PRN Reason: Pain, moderate (4-7) Stop: 11/05/17 23:01 - Labs Labs: 11/05/17 08:13 11/05/17 08:13 - Constitutional Appears: Non-toxic, No Acute Distress - Extremities Exam Extremities Exam: absent: Calf Tenderness Additional comments: RLE exam: External fixator hardware appears to be intact and in adequate alignment, dressing to the leg appears c/d/i with no strikethrough noted, cap refill < 3 sec to all digits, pt can wiggle all toes freely - Neurological Exam Neurological Exam: Alert, Awake, Oriented x3 - Psychiatric Exam Psychiatric exam: Normal Affect, Normal Mood Assessment and Plan - Assessment and Plan (Free Text) Assessment: 32 yo type I diabetic male patient admitted for right groin mass, seen by podiatry 2 months s/p R foot charcot reconstruction Plan: Patient seen and evaluated at bedside for wellness check Plan discussed with attending Dr. Tavarez RLE dressings left intact Cerete WBC scan negative Discussed with Dr. Tavarez. External fixator will now be removed in office 11/14/17 @ 1:30 pm. Discussed time and date with patient continue strict nwb to RLE Stable as per podiatry, will follow
--- NOTE | 2017-11-05 11:52 | CP.PCM.PN ---
Subjective - Date & Time of Evaluation Date of Evaluation: 11/05/17 Time of Evaluation: 09:00 - Subjective Subjective: discussed plan of rx Objective - Vital Signs/Intake and Output Vital Signs (last 24 hours): Temp Pulse Resp BP Pulse Ox 97.6 F 62 20 120/76 98 11/05/17 08:00 11/05/17 08:00 11/05/17 08:00 11/05/17 08:00 11/05/17 08:00 Intake and Output: 11/05/17 11/05/17 06:59 18:59 Intake Total 450 Balance 450 - Medications Medications: Current Medications Dextrose (Dextrose 50% Inj) 0 ml IV STAT PRN; Protocol PRN Reason: Hypoglycemia Protocol Dextrose (Glutose 15) 0 gm PO ONCE PRN; Protocol PRN Reason: Hypoglycemia Protocol Docusate Sodium (Colace) 100 mg PO BID [facility] Last Admin: 11/05/17 10:25 Dose: 100 mg Glucagon (Glucagen Diagnostic Kit) 0 mg IM STAT PRN; Protocol PRN Reason: Hypoglycemia Protocol Heparin Sodium (Porcine) (Heparin) 5,000 units SC Q8 [facility] Last Admin: 11/05/17 05:17 Dose: Not Given Ciprofloxacin (Cipro 400mg/200ml Dsw) 400 mg in 200 mls @ 133 mls/hr IVPB Q12H [facility] Last Admin: 11/05/17 02:30 Dose: 133 mls/hr Clindamycin Phosphate 300 mg/ (Sodium Chloride) 102 mls @ 204 mls/hr IVPB Q6H [facility] Last Admin: 11/05/17 07:44 Dose: 204 mls/hr Dextrose (Dextrose 5% In Water 1000 Ml) 1,000 mls @ 0 mls/hr IV .Q0M PRN; Protocol; Per Protocol PRN Reason: Hypoglycemia Protocol Ibuprofen (Motrin Tab) 600 mg PO TID PRN PRN Reason: Pain, Mild (1-3) Last Admin: 10/30/17 14:13 Dose: 600 mg Insulin Aspart (Novolog) 0 unit SC ACHS [facility] PRN Reason: Protocol Last Admin: 11/05/17 11:51 Dose: 3 unit Insulin Aspart (Novolog) 5 unit SC TIDAC [facility] Last Admin: 11/05/17 11:50 Dose: 5 unit Ondansetron HCl (Zofran Inj) 4 mg IVP Q6H PRN PRN Reason: Nausea/Vomiting Last Admin: 10/30/17 08:42 Dose: 4 mg Oxycodone/Acetaminophen (Percocet 5/325 Mg Tab) 2 tab PO Q6H PRN PRN Reason: Pain, severe (8-10) Stop: 11/05/17 23:01 Last Admin: 11/05/17 10:25 Dose: 2 tab Oxycodone/Acetaminophen (Percocet 5/325 Mg Tab) 1 tab PO Q6H PRN PRN Reason: Pain, moderate (4-7) Stop: 11/05/17 23:01 - Labs Labs: 11/05/17 08:13 11/05/17 08:13 Assessment and Plan (1) Diabetes mellitus Status: Acute (2) Inguinal tenderness Status: Acute
--- NOTE | 2017-11-05 14:14 | CP.PCM.DIS ---
Provider - Provider Date of Admission: 10/29/17 05:46 Attending physician: Abhishek Cochran Jr, MD Consults: General surgery: Dr. Dela Cruz Infectious disease: Dr. Sy Podiatry: Dr. De La Cruz Time Spent in preparation of Discharge (in minutes): 45 Hospital Course - Lab Results Lab Results: Micro Results 10/29/17 05:00 Blood Blood Culture - Final NO GROWTH AFTER 5 DAYS 10/29/17 05:00 Blood Gram Stain - Final TEST NOT PERFORMED 10/29/17 05:30 Blood Blood Culture - Final NO GROWTH AFTER 5 DAYS 10/29/17 05:30 Blood Gram Stain - Final TEST NOT PERFORMED Most Recent Lab Values WBC 5.4 K/uL (4.8-10.8) 11/05/17 08:13 RBC 3.80 Mil/uL (4.40-5.90) L 11/05/17 08:13 Hgb 10.8 g/dL (12.0-18.0) L 11/05/17 08:13 Hct 31.9 % (35.0-51.0) L 11/05/17 08:13 MCV 84.1 fL (80.0-94.0) 11/05/17 08:13 MCH 28.5 pg (27.0-31.0) 11/05/17 08:13 MCHC 33.9 g/dL (33.0-37.0) 11/05/17 08:13 RDW 15.8 % (11.5-14.5) H 11/05/17 08:13 Plt Count 349 K/uL (130-400) 11/05/17 08:13 MPV 8.2 fL (7.2-11.7) 11/05/17 08:13 Neut % (Auto) 44.1 % (50.0-75.0) L 11/05/17 08:13 Lymph % (Auto) 42.4 % (20.0-40.0) H 11/05/17 08:13 [place] % (Auto) 9.0 % (0.0-10.0) 11/05/17 08:13 Eos % (Auto) 3.9 % (0.0-4.0) 11/05/17 08:13 Baso % (Auto) 0.6 % (0.0-2.0) 11/05/17 08:13 Neut # 2.4 K/uL (1.8-7.0) 11/05/17 08:13 Lymph # 2.3 K/uL (1.0-4.3) 11/05/17 08:13 [place] # 0.5 K/uL (0.0-0.8) 11/05/17 08:13 Eos # 0.2 K/uL (0.0-0.7) 11/05/17 08:13 Baso # 0.0 K/uL (0.0-0.2) 11/05/17 08:13 D-Dimer, Quantitative 268 ng/mlDDU (0-243) H 10/29/17 03:14 pO2 40 mm/Hg (30-55) 10/29/17 05:44 VBG pH 7.34 (7.32-7.43) 10/29/17 05:44 VBG pCO2 46 mmHg (40-60) 10/29/17 05:44 VBG HCO3 23.2 mmol/L 10/29/17 05:44 VBG Total CO2 26.2 mmol/L (22-28) 10/29/17 05:44 VBG O2 Sat (Calc) 82.9 % (40-65) H 10/29/17 05:44 VBG Base Excess -1.3 mmol/L (0.0-2.0) L 10/29/17 05:44 VBG Potassium 3.9 mmol/L (3.6-5.2) 10/29/17 05:44 Sodium 139.0 mmol/l (132-148) 10/29/17 05:44 Chloride 110.0 mmol/L (98-107) H 10/29/17 05:44 Glucose 119 mg/dl (75-110) H 10/29/17 05:44 Lactate 0.7 mmol/L (0.7-2.1) 10/29/17 05:44 Crit Value Called To Md kandi rand 10/29/17 05:44 Crit Value Called By Yobany flynn rrt 10/29/17 05:44 Crit Value Read Back Y 10/29/17 05:44 Blood Gas Notified Time 605 10/29/17 05:44 Sodium 131 mmol/L (132-148) L 11/05/17 08:13 Potassium 4.4 mmol/L (3.6-5.2) 11/05/17 08:13 Chloride 100 mmol/L (98-107) 11/05/17 08:13 Carbon Dioxide 26 mmol/L (22-30) 11/05/17 08:13 Anion Gap 10 (10-20) 11/05/17 08:13 BUN 22 mg/dL (9-20) H 11/05/17 08:13 Creatinine 1.0 mg/dL (0.8-1.5) 11/05/17 08:13 Est GFR ( Amer) > 60 11/05/17 08:13 Est GFR (Non-Af Amer) > 60 11/05/17 08:13 POC Glucose (mg/dL) 230 mg/dL (65-110) H 11/05/17 11:29 Random Glucose 88 mg/dL (75-110) 11/05/17 08:13 Hemoglobin A1c 6.9 % (4.2-6.5) H 10/30/17 08:02 Calcium 9.1 mg/dl (8.6-10.4) 11/05/17 08:13 Phosphorus 4.2 mg/dL (2.5-4.5) 11/04/17 08:18 Magnesium 1.9 mg/dL (1.6-2.3) 11/04/17 08:18 Total Bilirubin 0.4 mg/dL (0.2-1.3) 11/05/17 08:13 AST 29 U/L (17-59) 11/05/17 08:13 ALT 20 U/L (21-72) L D 11/05/17 08:13 Alkaline Phosphatase 105 U/L (38-126) 11/05/17 08:13 Total Protein 7.5 g/dL (6.3-8.3) 11/05/17 08:13 Albumin 3.6 g/dL (3.5-5.0) 11/05/17 08:13 Globulin 3.9 gm/dL (2.2-3.9) 11/05/17 08:13 Albumin/Globulin Ratio 0.9 (1.0-2.1) L 11/05/17 08:13 Lipase 14 U/L (23-300) L 10/29/17 03:14 Venous Blood Potassium 3.9 mmol/L (3.6-5.2) 10/29/17 05:44 Urine Color Straw (YELLOW) 10/29/17 21:03 Urine Clarity Clear (Clear) 10/29/17 21:03 Urine pH 6.0 (5.0-8.0) 10/29/17 21:03 Ur Specific [place] 1.011 (1.003-1.030) 10/29/17 21:03 Urine Protein 1+ mg/dL (NEGATIVE) H 10/29/17 21:03 Urine Glucose (UA) 3+ mg/dL (Normal) H 10/29/17 21:03 Urine Ketones Negative mg/dL (NEGATIVE) 10/29/17 21: Urine Blood 2+ (NEGATIVE) H 10/29/17 21:03 Urine Nitrate Negative (NEGATIVE) 10/29/17 21: Urine Bilirubin Negative (NEGATIVE) 10/29/17 21: Urine Urobilinogen Normal mg/dL (0.2-1.0) 10/29/17 21:03 Ur Leukocyte Esterase Neg [place]/uL (Negative) 10/29/17 21:03 Urine WBC (Auto) < 1 /hpf (0-5) 10/29/17 21:03 Urine RBC (Auto) 10 /hpf (0-3) H 10/29/17 21:03 HIV 1&2 Antibody Screen Negative (NEGATIVE) 11/03/17 20:02 - Hospital Course Hospital Course: CC: groin pain HPI: 32 year old male with past medical history significant for diabetes presents with complaints of right sided groin pain which he first started experiencing 3 days prior. Patient states that at the time, he simply noticed the swelling. The day following he began experiencing the pain. Patient states that he began experiencing subjective fevers. He admits to loss of appetite as well as nausea and vomiting. Patient cannot recall any factors leading to this presentation. He denies any trauma, recent exposure to cats, or history of viral disorders or Tuberculosis. Patient had right foot surgery back in August for which he has been following up with the shuttle final inspector regularly. He is due to have the pins removed on November 06. He denies any associated new pain of the foot. Besides the aforementioned. Patient denies current chills, chest pain, trouble breathing, abdominal pain. 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 In the ED, labs were drawn, imaging was done and medications were given. Venous Doppler was negative and showed no evidence of deep vein thrombosis. CT of the abdomen/pelvis showed a 4.0 x 2.4 cm right inguinal fluid collection indicating phlegmon or a developing abscess. General surgery, Dr. Dela Cruz was consulted who recommended no surgical intervention for the groin mass and suggested appropriate pain management. Infectious disease, Dr. Sy was consulted who recommended a lower extremity x-ray to rule out infection. Tibia/Fibula x-ray was negative and showed no signs of osteomyelitis. HIV 1 and 2 and blood cultures were negative and patient was started on Cipro and Clindamycin per infectious disease recommendation. A WBC nuclear medicine scan was performed on 11/05/2017 and was negative for any active infection. Patient is status post charcot foot repair from 2 months ago and follows up regularly outpatient. Podiatry, was consulted. Patient will have external fixator removed in outpatient office on 11/14/17 at 1:30 PM. Instructions were provided and discussed with patient. Patient also had acute kidney injury, likely secondary to vomiting and loss of appetite. Acute kidney injury resolved during hospital stay and labs were routinely monitored. His chronic medical condition of diabetes mellitus was managed throughout hospital course. Patient currently has no complaints and is stable for discharge. This is a summary of the hospital course, please see the medical records for a more detailed summary. Discharge Exam - Head Exam Head Exam: NORMOCEPHALIC - Additional Findings Additional findings: - Constitutional Appears: No Acute Distress - Head Exam Head Exam: ATRAUMATIC, NORMAL INSPECTION - Eye Exam Eye Exam: EOMI, Normal appearance - ENT Exam ENT Exam: Mucous Membranes Moist - Respiratory Exam Respiratory Exam: Clear to Ausculation Bilateral, NORMAL BREATHING PATTERN. absent: Rales, Rhonchi, Wheezes, Respiratory Distress - Cardiovascular Exam Cardiovascular Exam: REGULAR RHYTHM, +S1, +S2 - GI/Abdominal Exam GI & Abdominal Exam: Soft, Normal Bowel Sounds. absent: Distended, Tenderness - Exam Exam: absent: NORMAL INSPECTION (mild right groin fullness noted) - Extremities Exam Additional comments: RLE: External hardware with dressing noted; sensation intact; patient able to move toes - Neurological Exam Neurological Exam: Alert, Awake, Oriented x3 - Psychiatric Exam Psychiatric exam: Normal Affect, Normal Mood - Skin Skin Exam: Dry, Intact, Warm Discharge Plan - Discharge Medications Prescriptions: Doxycycline Hyclate 100 mg PO BID 10 Days #20 capsule - Follow Up Plan Condition: FAIR Disposition: HOME/ ROUTINE Additional Instructions: Patient is stable for discharge to home. Patient must continue home medications. Patient must start new medication as prescribed: Doxycycline 100mg PO BID for 10 days- take one tablet twice a day for 10 days. Patient must follow up with PMD and Infectious disease doctor, Dr. Sy, within 1-2 weeks of discharge. Patient must follow up with podiatry, Dr. De La Cruz, within one week of discharge. Referrals: Nathan Sy MD [Staff Provider] - Walt De La Cruz DPM [Staff Provider] -
[2017-11-05 16:59] VITALS: BP 113/70; PULSE 73; TEMP 97.9; O2SAT 99
== END 2017-11-05 17:55 | disposition home or self-care (01) | DRG 574 ==
LOC: C.ER 23:44 → C.9E 10-29 05:46 → C.3T 10-29 13:09
PROVIDERS: ADMIT Internal Medicine; ATTEND Internal Medicine
DX: L04.1 Acute lymphadenitis of trunk (principal); N17.9 Acute kidney failure, unspecified; E10.610 Type 1 diabetes mellitus with diabetic neuropathic arthropathy; E10.621 Type 1 diabetes mellitus with foot ulcer; L97.529 Non-pressure chronic ulcer of other part of left foot with unspecified severity; M14.679 Charcot's joint, unspecified ankle and foot; K21.9 Gastro-esophageal reflux disease without esophagitis; K59.00 Constipation, unspecified; F17.210 Nicotine dependence, cigarettes, uncomplicated; F12.90 Cannabis use, unspecified, uncomplicated; Z79.4 Long term (current) use of insulin; Z98.890 Other specified postprocedural states

== ENCOUNTER 2017-11-23 01:12 | Emergency (ER) | payer OTHER ==
[2017-11-23 01:14] VITALS: BMI 25.4
--- NOTE | 2017-11-23 01:47 | C.PDOC ---
History Of Present Illness 32 year old male with PMHx of DM and Hx of charcot foot sp external fixator multiple surgeries with Dr. Menjivar in [place]. Patient is now c/o pain to the right foot and he states that he is afraid maybe developing an infection. Patient states she was recently seen by his staff electronic warfare officer and is also requesting additional pain medications even though he has a pain management doctor. Patient denies fever, chills, nausea, vomit, diarrhea. Chief Complaint (Nursing): Lower Extremity Problem/Injury History Per: Patient History/Exam Limitations: no limitations Onset/Duration Of Symptoms: Days Current Symptoms Are (Timing): Still Present Recent travel outside of the [place]: No Additional History Per: Patient - Ankle/Foot Description Of Injury: Other Past Medical History Reviewed: Historical Data, Nursing Documentation, Vital Signs Vital Signs: Last Vital Signs Temp 98.1 F 11/23/17 04:33 Pulse 80 11/23/17 04:33 Resp 18 11/23/17 04:33 BP 107/50 L 11/23/17 04:33 Pulse Ox 100 11/23/17 05:40 - Medical History PMH: Diabetes (Type 1) Denies: Chronic Kidney Disease Other PMH: charcot foot Surgical History: No Surg Hx - [facility] Procedures DIVISION OF RIGHT LOWER LEG TENDON, PERC ENDO APPROACH (08/26/17) FLUOROSCOPY OF RIGHT FOOT (08/26/17) INSERTION OF EXT FIX INTO R METATARSAL, PERC APPROACH (08/26/17) REPLACEMENT OF R METATARSAL WITH SYNTH SUB, OPEN APPROACH (08/26/17) Family History: States: Unknown Family Hx - Social History Hx Tobacco Use: Yes (1 pack per day x10 years) Hx Alcohol Use: No Hx Substance Use: Yes (smokes marihuana occasionally) Review Of Systems Constitutional: Negative for: Fever, Chills Cardiovascular: Negative for: Chest Pain, Palpitations Respiratory: Negative for: Cough, Shortness of Breath Gastrointestinal: Negative for: Nausea, Vomiting, Abdominal Pain Musculoskeletal: Positive for: Foot Pain Skin: Negative for: Rash Neurological: Negative for: Weakness, Numbness Physical Exam - Physical Exam Appears: Non-toxic, No Acute Distress Skin: Normal Color, Warm, Dry, Other (there are chronic ulcers to the medial malleolus,sole of R foot.) Head: Atraumatic, Normacephalic Eye(s): bilateral: Normal Inspection Nose: No Discharge, No Deformity Oral Mucosa: Moist Neck: Normal ROM, Supple Chest: Symmetrical Cardiovascular: Rhythm Regular, No Murmur Respiratory: Normal Breath Sounds, No Rales, No Rhonchi, No Wheezing Gastrointestinal/Abdominal: Soft, No Tenderness, No Guarding, No Rebound Extremity: Normal ROM, No Tenderness, Capillary Refill (< 2 seconds), No Swelling, Other (hyperpigmented right lower extremity with typical charcot foot. several superfical areas of mild erythema ad ulceration no obvious cellulitis ) Extremity: Left: Atraumatic, Right: Atraumatic Pulses: Left Dorsalis Pedis: Normal, Right Dorsalis Pedis: Normal Neurological/Psych: Oriented x3, Normal Speech, Normal Cognition, Normal Motor, Normal Sensation ED Course And Treatment - Laboratory Results Result Diagrams: 11/23/17 02:16 11/23/17 02:48 O2 Sat by Pulse Oximetry: 100 (On RA) Pulse Ox Interpretation: Normal Medical Decision Making Medical Decision Making: Impression: charcot foot Plan: * Labs * Blood culture Disposition - Disposition Referrals: [facility] [Outside] Disposition: HOME/ ROUTINE Disposition Time: 05:37 Condition: GOOD Prescriptions: Amoxicillin/Clavulanate [Augmentin 875 MG-125 MG] 1 tab PO BID #20 tab oxyCODONE/Acetaminophen [Percocet 5/325 mg Tab] 1 ea PO TID PRN #12 tab PRN Reason: Pain, Mild (1-3) Instructions: Diabetic Foot Ulcer (DC), Foot Care for Diabetics Forms: [facility] (Greenlandic) - Clinical Impression Clinical Impression: Chronic foot ulcer - Scribe Statement The provider has reviewed the documentation as recorded by the Scribe Bogdan Pang All medical record entries made by the Scribe were at my direction and personally dictated by me. I have reviewed the chart and agree that the record accurately reflects my personal performance of the history, physical exam, medical decision making, and the department course for this patient. I have also personally directed, reviewed, and agree with the discharge instructions and disposition.
[2017-11-23 02:20] LABS: BASO % 0.6 % (0.0-2.0); EOS # 0.1 K/uL (0.0-0.7); EOS % 0.9 % (0.0-4.0); HEMOGLOBIN 11.6 g/dL (12.0-18.0); LYMPH # 2.4 K/uL (1.0-4.3); MEAN CELL VOLUME 84.7 fL (80.0-94.0); MEAN CORPUSCULAR HEMOGLOBIN 28.8 pg (27.0-31.0); MEAN PLATELET VOLUME 8.4 fL (7.2-11.7); MONO # 0.5 K/uL (0.0-0.8); MONO % 5.9 % (0.0-10.0); NEUT # 5.2 K/uL (1.8-7.0); NEUT % 63.6 % (50.0-75.0); RBC 4.02 Mil/uL (4.40-5.90); RED CELL DISTRIBUTION WIDTH 16.1 % (11.5-14.5); WHITE BLOOD COUNT 8.1 K/uL (4.8-10.8)
[2017-11-23 03:08] LABS: ALB/GLOB RATIO 0.9 (1.0-2.1); ALBUMIN 3.9 g/dL (3.5-5.0); ALT/SGPT 17 U/L (21-72); AST/SGOT 16 U/L (17-59); BLOOD UREA NITROGEN 20 mg/dL (9-20); CALCIUM 9.5 mg/dl (8.6-10.4); GFR AFRICAN-AMERICAN > 60; GFR NON-AFRICAN AMERICAN > 60
[2017-11-23 04:34] VITALS: BP 107/50; PULSE 80; RESP 18; TEMP 98.1
[2017-11-23 05:40] VITALS: O2SAT 100
== END 2017-11-23 05:08 | disposition home or self-care (01) ==
LOC: C.ER 01:12
DX: L97.519 Non-pressure chronic ulcer of other part of right foot with unspecified severity (principal); E10.621 Type 1 diabetes mellitus with foot ulcer

== ENCOUNTER 2017-11-26 18:18 | Emergency (ER) | payer OTHER ==
[2017-11-26 18:18] VITALS: BMI 25.4
[2017-11-26 19:11] LABS: BASO % 0.3 % (0.0-2.0); EOS # 0.1 K/uL (0.0-0.7); EOS % 1.6 % (0.0-4.0); HEMOGLOBIN 11.5 g/dL (12.0-18.0); LYMPH % 33.7 % (20.0-40.0); MEAN CELL VOLUME 85.1 fL (80.0-94.0); MEAN CORPUSCULAR HEMOGLOBIN 28.4 pg (27.0-31.0); MEAN CORPUSCULAR HGB CONC 33.3 g/dL (33.0-37.0); MEAN PLATELET VOLUME 8.2 fL (7.2-11.7); MONO # 0.4 K/uL (0.0-0.8); MONO % 6.8 % (0.0-10.0); NEUT # 3.5 K/uL (1.8-7.0); NEUT % 57.6 % (50.0-75.0); NRBC % 0.1 % (0.0-2.0); RBC 4.05 Mil/uL (4.40-5.90)
[2017-11-26 19:19] LABS: ALB/GLOB RATIO 0.9 (1.0-2.1); ALBUMIN 3.9 g/dL (3.5-5.0); ALT/SGPT 10 U/L (21-72); AST/SGOT 17 U/L (17-59); BLOOD UREA NITROGEN 13 mg/dL (9-20); CALCIUM 9.6 mg/dl (8.6-10.4); GFR AFRICAN-AMERICAN > 60; GFR NON-AFRICAN AMERICAN > 60
--- NOTE | 2017-11-26 20:13 | C.PDOC ---
History Of Present Illness 32 yr old male brought in by EMS, presents to the ER after his blood sugar was found to be low. Patient has history of IDDM. Patient sugar level was found to be 36 at home by mom. Patient was initially combative with EMS. Upon arrival to ER, patient blood sugar was in low 60s and patient was calm. Upon examination, patient states he took his insulin last night but did not eat anything today. Denies fever, chills, chest pain, SOB, cough, nausea, vomiting, abdominal pain, diarrhea, dysuria, weakness or numbness. Time Seen by Provider: 11/26/17 18:27 Chief Complaint (Nursing): Altered Mental Status History Per: Patient, Family (mom) History/Exam Limitations: None Onset/Duration Of Symptoms: Sudden Onset (NEWS COMMENTATOR) Past Medical History Reviewed: Historical Data, Nursing Documentation, Vital Signs Vital Signs: Last Vital Signs Temp 98 F 11/26/17 20:50 Pulse 78 11/26/17 20:50 Resp 16 11/26/17 20:50 BP 135/69 11/26/17 20:50 Pulse Ox 98 11/26/17 20:50 - Medical History PMH: Diabetes (Type 1) - [facility] Procedures DIVISION OF RIGHT LOWER LEG TENDON, PERC ENDO APPROACH (08/26/17) FLUOROSCOPY OF RIGHT FOOT (08/26/17) INSERTION OF EXT FIX INTO R METATARSAL, PERC APPROACH (08/26/17) REPLACEMENT OF R METATARSAL WITH SYNTH SUB, OPEN APPROACH (08/26/17) Family History: States: No Known Family Hx - Social History Hx Tobacco Use: Yes (1 pack per day x10 years) Hx Alcohol Use: No Hx Substance Use: Yes - Immunization History Hx Tetanus Toxoid Vaccination: No Hx Influenza Vaccination: Yes Hx Pneumococcal Vaccination: No Review Of Systems Except As Marked, All Systems Reviewed And Found Negative. Cardiovascular: Negative for: Chest Pain Respiratory: Negative for: Cough, Shortness of Breath Gastrointestinal: Negative for: Nausea, Vomiting, Abdominal Pain, Diarrhea Genitourinary: Negative for: Dysuria Neurological: Negative for: Weakness, Numbness Physical Exam - Physical Exam Appears: Non-toxic, No Acute Distress Skin: Warm, Dry, No Rash Eye(s): bilateral: Normal Inspection, PERRL, EOMI Oral Mucosa: Moist Cardiovascular: Rhythm Regular, No Murmur Respiratory: Normal Breath Sounds, No Rales, No Rhonchi, No Wheezing Gastrointestinal/Abdominal: Normal Exam, Soft, No Tenderness, No Guarding, No Rebound Extremity: Normal ROM, No Swelling Neurological/Psych: Oriented x3, Normal Speech, Normal Motor, Normal Sensation ED Course And Treatment - Laboratory Results Result Diagrams: 11/26/17 18:54 11/26/17 18:54 O2 Sat by Pulse Oximetry: 100 (RA) Pulse Ox Interpretation: Normal Medical Decision Making Medical Decision Making: PLAN: * CXR * Labs * Urinalysis Disposition - Disposition Referrals: Karlene Alas, [Non-Staff] - Disposition: HOME/ ROUTINE Disposition Time: 17:30 Condition: IMPROVED Additional Instructions: Thank you for letting us take care of you today. The emergency medical care you received today was directed at your acute symptoms. If you were prescribed any medication, please fill it and take as directed. It may take several days for your symptoms to resolve. Return to the Emergency Department if your symptoms worsen, do not improve, or if you have any other problems. Please contact your doctor or call one of the physicians/clinics you have been referred to that are listed on the Patient Visit Information form that is included in your discharge packet. Bring any paperwork you were given at discharge with you along with any medications you are taking to your follow up visit. Our treatment cannot replace ongoing medical care by a primary care provider (PCP) outside of the emergency department. Thank you for allowing the [facility] team to be part of your care today. Eat on a regular basis to maintain your blood sugar. Follow up with your primary doctor in 2-3 days for re-evaluation and further management. Instructions: Low Blood Sugar in People With Diabetes - Clinical Impression Clinical Impression: Hypoglycemia - Scribe Statement The provider has reviewed the documentation as recorded by the Deviibe Mamta Victoria Provider Attestation: All medical record entries made by the Deviibawa were at my direction and personally dictated by me. I have reviewed the chart and agree that the record accurately reflects my personal performance of the history, physical exam, medical decision making, and the department course for this patient. I have also personally directed, reviewed, and agree with the discharge instructions and disposition.
[2017-11-26 20:51] VITALS: BP 135/69; PULSE 78; RESP 16; TEMP 98
[2017-11-27 00:57] VITALS: O2SAT 100
--- NOTE | 2017-11-27 08:41 | RAD ---
Chest x-ray single frontal view History: Evaluate for infiltrate. Comparison: 10/29/2017 Findings: No focal infiltrate or effusion. Small nodular density at the right lung apex may represent vessel on end. Heart size within normal limits. Impression: No focal infiltrate or effusion.
== END 2017-11-26 20:51 | disposition home or self-care (01) ==
LOC: C.ER 18:18
DX: E10.649 Type 1 diabetes mellitus with hypoglycemia without coma (principal); Z79.4 Long term (current) use of insulin

== ENCOUNTER 2018-02-09 04:51 | Observation (INO) | payer OTHER ==
[2018-02-09 04:54] VITALS: BMI 25.4
--- NOTE | 2018-02-09 05:21 | C.PDOC ---
History Of Present Illness 32 y/o male with a history of DM presents to the ED with hypoglycemia. Patient works at a [employer] where he was found unresponsive by EMS with a blood glucose level less than 20. He was given dextrose by EMS prior to ER arrival. Patient uses long and short acting insulin. He states he did not eat all day and has had similar presentations in the past. PMD: Saray Myers Time Seen by Provider: 02/09/18 05:11 Chief Complaint (Nursing): Medical Clearance History Per: Patient History/Exam Limitations: no limitations Onset/Duration Of Symptoms: Hrs Current Symptoms Are (Timing): Still Present Recent travel outside of the [place]: No Past Medical History Vital Signs: Last Vital Signs Temp 97.5 F L 02/09/18 05:28 Pulse 79 02/09/18 06:14 Resp 16 02/09/18 06:14 BP 150/95 H 02/09/18 06:14 Pulse Ox 97 02/09/18 06:14 - Medical History PMH: Diabetes (Type 1) Denies: Chronic Kidney Disease Surgical History: No Surg Hx - [facility] Procedures DIVISION OF RIGHT LOWER LEG TENDON, PERC ENDO APPROACH (08/26/17) FLUOROSCOPY OF RIGHT FOOT (08/26/17) INSERTION OF EXT FIX INTO R METATARSAL, PERC APPROACH (08/26/17) REPLACEMENT OF R METATARSAL WITH SYNTH SUB, OPEN APPROACH (08/26/17) Family History: States: Unknown Family Hx - Social History Hx Tobacco Use: Yes (1 pack per day x10 years) Hx Alcohol Use: No Hx Substance Use: Yes - Immunization History Hx Tetanus Toxoid Vaccination: No Hx Influenza Vaccination: Yes Hx Pneumococcal Vaccination: No Review Of Systems Except As Marked, All Systems Reviewed And Found Negative. Constitutional: Positive for: Other (hypoglycemia found unresponsive at work) Physical Exam - Physical Exam Appears: Well, No Acute Distress Skin: Normal Color, Warm, Dry Head: Atraumatic, Normacephalic Eye(s): bilateral: Normal Inspection, PERRL, EOMI Nose: Normal Throat: Normal Neck: Normal Cardiovascular: Rhythm Regular, No Murmur Respiratory: Normal Breath Sounds, No Decreased Breath Sounds Gastrointestinal/Abdominal: Normal Exam Back: Normal Inspection, No CVA Tenderness, No Vertebral Tenderness Extremity: Normal ROM, No Pedal Edema Neurological/Psych: Oriented x3 ED Course And Treatment - Laboratory Results Result Diagrams: 02/09/18 05:20 02/09/18 05:20 Pulse Ox Interpretation: Normal Medical Decision Making Medical Decision Making: hypoglyecmia- pt on long aciting insulin. labs unremarkable. discussed with fern mccarty obs. Disposition - Disposition Decision To Admit - Pt Status Changed To: Hospital Disposition Of: Observation - . Bed Request Type: Regular Admitting Physician: Mamta Malcolm
[2018-02-09 05:26] LABS: BASO % 0.6 % (0.0-2.0); EOS % 0.6 % (0.0-4.0); HEMOGLOBIN 11.7 g/dL (12.0-18.0); LYMPH # 1.2 K/uL (1.0-4.3); LYMPH % 16.7 % (20.0-40.0); MEAN CELL VOLUME 86.2 fL (80.0-94.0); MEAN CORPUSCULAR HEMOGLOBIN 29.3 pg (27.0-31.0); MEAN PLATELET VOLUME 8.5 fL (7.2-11.7); MONO # 0.4 K/uL (0.0-0.8); MONO % 5.6 % (0.0-10.0); NEUT # 5.7 K/uL (1.8-7.0); NEUT % 76.5 % (50.0-75.0); RBC 3.99 Mil/uL (4.40-5.90); RED CELL DISTRIBUTION WIDTH 15.5 % (11.5-14.5); WHITE BLOOD COUNT 7.4 K/uL (4.8-10.8)
[2018-02-09 05:30] VITALS: TEMP 97.5
[2018-02-09 05:38] LABS: INR 1.1; PROTHROMBIN TIME 12.3 SECONDS (9.7-12.2)
[2018-02-09 05:50] LABS: ALB/GLOB RATIO 0.8 (1.0-2.1); ALT/SGPT 7 U/L (21-72); AST/SGOT 22 U/L (17-59); BLOOD UREA NITROGEN 18 mg/dL (9-20); GFR AFRICAN-AMERICAN > 60; GFR NON-AFRICAN AMERICAN > 60
[2018-02-09 09:27] VITALS: BP 144/92; PULSE 87; RESP 20; O2SAT 100
[2018-02-09] MEDS ORDERED: Enoxaparin 40 mg Syringe SC SCH (10:00)
[2018-02-09] MEDS ORDERED: (Novolog) Insulin Aspart, Recombinant 100 u/ml 10 ml vial SC SCH (11:30)
[2018-02-09] MEDS ORDERED: Pneumococcal 23-Valent Vaccine IM ONE (13:05)
--- NOTE | 2018-02-10 09:05 | HP ---
HISTORY OF PRESENT ILLNESS: A 32-year-old male who was admitted the hospital with chief complaint of weakness, fatigue, tiredness, and hypoglycemia. Patient took his insulin. Went to work did not eat full meals. The patient came to the ER, advised admission. PHYSICAL EXAMINATION: GENERAL: The patient is awake, alert, and oriented. VITAL SIGNS: Temperature 98 and pulse 90. HEENT: Within normal limits. NECK: Supple. CHEST: Symmetrical. HEART: Regular. ABDOMEN: Soft. EXTREMITIES: There is in the foot. ASSESSMENT: The patient suffers from hypoglycemia, uncontrolled juvenile diabetes. Patient get bed rest, monitor sugar, . Mamta Malcolm MD
== END 2018-02-09 14:15 | disposition home or self-care (01) ==
LOC: C.ER 04:51 → C.3T 06:17
PROVIDERS: ADMIT Internal Medicine Pulmonary Disease; ATTEND Internal Medicine Pulmonary Disease
DX: E10.649 Type 1 diabetes mellitus with hypoglycemia without coma (principal); E10.65 Type 1 diabetes mellitus with hyperglycemia; Z79.4 Long term (current) use of insulin; F17.210 Nicotine dependence, cigarettes, uncomplicated; Z23 Encounter for immunization
CPT/HCPCS: 80053; 82948; 85025; 85610; 85730; 90471; 90732; G0378; J1650; J7070

== ENCOUNTER 2018-02-18 17:53 | Emergency (ER) | payer OTHER ==
[2018-02-18 17:53] VITALS: BMI 25.4
--- NOTE | 2018-02-18 20:02 | C.PDOC ---
History Of Present Illness 32 y/o male with his DM and Chronic foot wounds presents to ED with c/o of worsening right foot swelling for "past few days". Patient denies trauma, fever , chills, chest pain, numbness or any other complaints at this time. Time Seen by Provider: 02/18/18 19:52 Chief Complaint (Nursing): Lower Extremity Problem/Injury History Per: Patient History/Exam Limitations: no limitations Onset/Duration Of Symptoms: Days Current Symptoms Are (Timing): Still Present Past Medical History Reviewed: Historical Data, Nursing Documentation, Vital Signs Vital Signs: Last Vital Signs Temp 97.8 F 02/18/18 22:42 Pulse 82 02/18/18 22:42 Resp 18 02/18/18 22:42 BP 130/79 02/18/18 22:42 Pulse Ox 98 02/19/18 00:05 - Medical History PMH: Diabetes (Type 1) Surgical History: No Surg Hx - [facility] Procedures DIVISION OF RIGHT LOWER LEG TENDON, PERC ENDO APPROACH (08/26/17) FLUOROSCOPY OF RIGHT FOOT (08/26/17) INSERTION OF EXT FIX INTO R METATARSAL, PERC APPROACH (08/26/17) REPLACEMENT OF R METATARSAL WITH SYNTH SUB, OPEN APPROACH (08/26/17) Family History: States: No Known Family Hx - Social History Hx Tobacco Use: Yes (1 pack per day x10 years) Hx Alcohol Use: No Hx Substance Use: Yes - Immunization History Hx Tetanus Toxoid Vaccination: No Hx Influenza Vaccination: Yes Hx Pneumococcal Vaccination: No Review Of Systems Constitutional: Negative for: Fever, Chills Cardiovascular: Negative for: Chest Pain Gastrointestinal: Negative for: Nausea, Vomiting Musculoskeletal: Positive for: Foot Pain (swelling) Skin: Negative for: Rash, Bruising Neurological: Negative for: Weakness, Numbness Physical Exam - Physical Exam Appears: Non-toxic, No Acute Distress Skin: Warm, Dry, No Rash Head: Atraumatic, Normacephalic Eye(s): bilateral: Normal Inspection Oral Mucosa: Moist Neck: Normal ROM, Supple Cardiovascular: Rhythm Regular Respiratory: Normal Breath Sounds, No Rales, No Rhonchi, No Wheezing Extremity: Capillary Refill (<2 seconds), No Deformity, Swelling (right foot), Other (2cm ulcer to lateral aspect of right foot with mild purulent discharge) Pulses: Right Dorsalis Pedis: Normal Neurological/Psych: Oriented x3, Normal Motor, Normal Sensation ED Course And Treatment - Laboratory Results Result Diagrams: 02/18/18 20:08 02/18/18 20:08 O2 Sat by Pulse Oximetry: 98 (RA) Pulse Ox Interpretation: Normal Medical Decision Making Medical Decision Making: diabetic ulcer with purlent discharge, h/o of osteo- labs imaging pending noted elevated sed rate with h/o of osteo. requeted pt to be admitted for podiatry eval, mri r/o osteo. 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 understands risks signs ama Disposition - Disposition Disposition: AGAINST MEDICAL ADVICE Disposition Time: 11:00 Condition: UNKNOWN Additional Instructions: please follow up with your doctor. return to er with worsening symptoms or concerns. Prescriptions: Sulfamethoxazole/Trimethoprim [Bactrim DS 800 mg-160 mg] 1 tab PO BID #14 tab Instructions: Osteomyelitis, Diabetic Foot Ulcer (DC), Leaving Against Medical Advice Forms: [employer] [facility] (Burkinan) - Clinical Impression Clinical Impression: Diabetic ulcer of foot associated with diabetes mellitus due to underlying condition, limited to breakdown of skin - Scribe Statement The provider has reviewed the documentation as recorded by the Deviibawa Zaragoza All medical record entries made by the Deviibawa were at my direction and personally dictated by me. I have reviewed the chart and agree that the record accurately reflects my personal performance of the history, physical exam, medical decision making, and the department course for this patient. I have also personally directed, reviewed, and agree with the discharge instructions and disposition.
[2018-02-18 20:11] LABS: BASO # 0.1 K/uL (0.0-0.2); BASO % 0.9 % (0.0-2.0); EOS # 0.2 K/uL (0.0-0.7); EOS % 2.1 % (0.0-4.0); HEMOGLOBIN 10.3 g/dL (12.0-18.0); LYMPH # 3.2 K/uL (1.0-4.3); LYMPH % 38.6 % (20.0-40.0); MEAN CELL VOLUME 85.6 fL (80.0-94.0); MEAN CORPUSCULAR HEMOGLOBIN 28.7 pg (27.0-31.0); MEAN CORPUSCULAR HGB CONC 33.5 g/dL (33.0-37.0); MEAN PLATELET VOLUME 8.1 fL (7.2-11.7); MONO # 0.6 K/uL (0.0-0.8); MONO % 7.7 % (0.0-10.0); NEUT # 4.2 K/uL (1.8-7.0); NEUT % 50.7 % (50.0-75.0); RBC 3.59 Mil/uL (4.40-5.90); RED CELL DISTRIBUTION WIDTH 15.2 % (11.5-14.5); WHITE BLOOD COUNT 8.3 K/uL (4.8-10.8)
[2018-02-18 20:19] LABS: INR 1.1; PROTHROMBIN TIME 11.9 SECONDS (9.7-12.2)
[2018-02-18 20:25] LABS: ALB/GLOB RATIO 0.8 (1.0-2.1); ALBUMIN 3.5 g/dL (3.5-5.0); ALT/SGPT 21 U/L (21-72); AST/SGOT 20 U/L (17-59); BLOOD UREA NITROGEN 29 mg/dL (9-20); CALCIUM 8.7 mg/dl (8.6-10.4); GFR AFRICAN-AMERICAN > 60; GFR NON-AFRICAN AMERICAN > 60
[2018-02-18] MEDS ORDERED: Tmp-Smz 800 mg-160 mg DS Tab PO STA (21:55)
[2018-02-18] MEDS ORDERED: Tmp-Smz 800 mg-160 mg DS Tab ONE (22:26)
[2018-02-18 22:43] VITALS: BP 130/79; PULSE 82; RESP 18; TEMP 97.8
[2018-02-19 00:06] VITALS: O2SAT 98
--- NOTE | 2018-02-19 10:18 | RAD ---
PROCEDURE: Right Foot Radiographs. HISTORY: foot swelling COMPARISON: None. FINDINGS: BONES: No acute fracture. There is fragmentation and dissolution of the midfoot consistent with severe neuropathic arthritis, versus osteomyelitis. There is sivan erosion of the anterior calcaneus. There is pes planus deformity. There is extensive sclerosis of the base of the metatarsals. JOINTS: As above SOFT TISSUES: Soft tissue swelling noted predominantly over the dorsum of the midfoot OTHER FINDINGS: None. 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
== END 2018-02-18 23:12 | disposition left against medical advice (07) ==
LOC: C.ER 17:53
DX: E10.621 Type 1 diabetes mellitus with foot ulcer (principal)

== ENCOUNTER 2018-03-24 13:01 | Emergency (ER) | payer OTHER ==
[2018-03-24 13:09] VITALS: BMI 25.8
[2018-03-24] MEDS ORDERED: Dextrose 50% SYRINGE Inj (50 ml) ONE ×2 (13:12→13:14)
[2018-03-24] MEDS ORDERED: Sodium Chloride 0.9% 1,000 ML IV ONE (13:13)
[2018-03-24] MEDS ORDERED: Dextrose 50% SYRINGE Inj (50 ml) IV STA ×2 (13:24)
[2018-03-24 13:32] LABS: BASO # 0.1 K/uL (0.0-0.2); BASO % 1.1 % (0.0-2.0); EOS # 0.2 K/uL (0.0-0.7); HEMOGLOBIN 11.6 g/dL (12.0-18.0); LYMPH # 4.2 K/uL (1.0-4.3); LYMPH % 46.7 % (20.0-40.0); MEAN CELL VOLUME 84.2 fL (80.0-94.0); MEAN CORPUSCULAR HEMOGLOBIN 27.9 pg (27.0-31.0); MEAN CORPUSCULAR HGB CONC 33.1 g/dL (33.0-37.0); MEAN PLATELET VOLUME 8.3 fL (7.2-11.7); MONO # 0.9 K/uL (0.0-0.8); MONO % 10.4 % (0.0-10.0); NEUT # 3.6 K/uL (1.8-7.0); NEUT % 39.8 % (50.0-75.0); NRBC % 0.1 % (0.0-2.0); RBC 4.17 Mil/uL (4.40-5.90); RED CELL DISTRIBUTION WIDTH 15.2 % (11.5-14.5)
[2018-03-24 14:11] LABS: VENOUS BLOOD GAS BASE EXCESS 0.3 mmol/L (0.0-2.0); VENOUS BLOOD GAS PCO2 53 mmHg (40-60); VENOUS BLOOD GAS PO2 48 mm/Hg (30-55); VENOUS BLOOD PH 7.32 (7.32-7.43)
[2018-03-24 14:13] LABS: ALB/GLOB RATIO 0.8 (1.0-2.1); ALBUMIN 4.3 g/dL (3.5-5.0); ALT/SGPT 17 U/L (21-72); AST/SGOT 29 U/L (17-59); BLOOD UREA NITROGEN 22 mg/dL (9-20); CALCIUM 9.9 mg/dl (8.6-10.4); GFR AFRICAN-AMERICAN > 60; GFR NON-AFRICAN AMERICAN > 60; LIPASE 36 U/L (23-300)
--- NOTE | 2018-03-24 14:42 | RAD ---
PROCEDURE: CHEST RADIOGRAPH, 1 VIEW HISTORY: Diabetic COMPARISON: 11/26/2017 FINDINGS: LUNGS: Clear. PLEURA: No pneumothorax or pleural fluid seen. CARDIOVASCULAR: Normal. OSSEOUS STRUCTURES: No significant abnormalities. VISUALIZED UPPER ABDOMEN: Normal. OTHER FINDINGS: None. IMPRESSION: No active disease. No acute/significant interval changes.
--- NOTE | 2018-03-24 15:02 | C.PDOC ---
History Of Present Illness Patient is a 32 y/o male, with a Hx of type 1 DM, who presents to the ED with father complaining of altered mental status at home. Per EMS, blood sugar in the field was less than 20; in ED, patient given dextrose IV with resolution of symptoms. Notes chronic foot infection at that is being treated, currently at baseline. Patient admits to taking insulin today, but denies eating any food, fever, cough, chest pain, shortness of breath, or dysuria. Chief Complaint (Nursing): Altered Mental Status History Per: Patient, Family (father) History/Exam Limitations: None Onset/Duration Of Symptoms: Hrs Current Symptoms Are (Timing): Gone Usual Baseline: Alert Oriented Use Of Anticoag/Antiplatelets: No Recent travel outside of the [place]: No Past Medical History Reviewed: Historical Data, Nursing Documentation, Vital Signs Vital Signs: Last Vital Signs Temp 97.7 F 03/24/18 16:46 Pulse 77 03/24/18 16:46 Resp 18 03/24/18 16:46 BP 148/91 H 03/24/18 16:46 Pulse Ox 100 03/24/18 16:46 - Medical History PMH: Diabetes (Type 1) Denies: Chronic Kidney Disease Other Surgeries: DIVISION OF RIGHT LOWER LEG TENDON, PERC ENDO APPROACH (). FLUOROSCOPY OF RIGHT FOOT (08/26/17). INSERTION OF EXT FIX INTO R METATARSAL, PERC APPROACH (08/26/17). REPLACEMENT OF R METATARSAL WITH SYNTH SUB, OPEN APPROACH (08/26/17) - [facility] Procedures DIVISION OF RIGHT LOWER LEG TENDON, PERC ENDO APPROACH (08/26/17) FLUOROSCOPY OF RIGHT FOOT (08/26/17) INSERTION OF EXT FIX INTO R METATARSAL, PERC APPROACH (08/26/17) REPLACEMENT OF R METATARSAL WITH SYNTH SUB, OPEN APPROACH (08/26/17) Family History: States: No Known Family Hx - Social History Hx Tobacco Use: Yes (1 pack per day x10 years) Hx Alcohol Use: No Hx Substance Use: Yes - Immunization History Hx Tetanus Toxoid Vaccination: No Hx Influenza Vaccination: Yes Hx Pneumococcal Vaccination: No Review Of Systems Constitutional: Negative for: Fever Cardiovascular: Negative for: Chest Pain Respiratory: Negative for: Cough, Shortness of Breath Genitourinary: Negative for: Dysuria Neurological: Positive for: Altered Mental Status Physical Exam - Physical Exam Appears: Non-toxic, No Acute Distress Skin: Normal Color, Warm, Diaphoretic Head: Atraumatic, Normacephalic Eye(s): bilateral: PERRL, EOMI Oral Mucosa: Moist Chest: Symmetrical Cardiovascular: Rhythm Regular, No Murmur Respiratory: Normal Breath Sounds, No Rales, No Rhonchi, No Wheezing Gastrointestinal/Abdominal: Soft, No Tenderness, No Guarding, No Rebound Extremity: Normal ROM (x4), No Swelling, Other (chronic ulcer to foot with venous changes, at baseline) Neurological/Psych: No Normal Speech (non verbal ) Gait: Steady ED Course And Treatment - Laboratory Results Result Diagrams: 03/24/18 13:27 03/24/18 13:27 ECG: Interpreted By Me, Viewed By Me ECG Rhythm: Sinus Rhythm ECG Interpretation: Normal Interpretation Of ECG: normal axis Rate From EC (bpm) - Radiology CXR: Interpreted by Me, Viewed By Me CXR Interpretation: Yes: No Acute Disease Progress Note: EKG, drug screen, CXR, urine culture, UA ordered. Dextrose and IV fluids administered. On re-eval, patient is speaking in full sentences and resting comfortably. Symptoms have resolved and patient is stable for discharge. Disposition - Disposition Referrals: [facility] Dilan Alas, [Non-Staff] - Disposition: HOME/ ROUTINE Disposition Time: 16:30 Condition: IMPROVED Additional Instructions: CLEMENTINE RAMACHANDRAN, thank you for letting us take care of you today. Your provider was Christoph Shaw DO and you were treated for HYPOGLYCEMIC. The emergency medical care you received today was directed at your acute symptoms. If you were prescribed any medication, please fill it and take as directed. It may take several days for your symptoms to resolve. Return to the Emergency Department if your symptoms worsen, do not improve, or if you have any other problems. Please contact your doctor or call one of the physicians/clinics you have been referred to that are listed on the Patient Visit Information form that is included in your discharge packet. Bring any paperwork you were given at discharge with you along with any medications you are taking to your follow up visit. Our treatment cannot replace ongoing medical care by a primary care provider outside of the emergency department. Thank you for allowing the [facility] team to be part of your care today. Trying eating while or just before taking your insulin to prevent low blood sugar. Follow up with your primary care doctor in 1-2 days for re-evaluation and further management. Instructions: Low Blood Sugar in People With Diabetes Forms: [facility] (Vietnamese) - Clinical Impression Clinical Impression: Hypoglycemia - Scribe Statement The provider has reviewed the documentation as recorded by the Scribe May Walls All medical record entries made by the Scribe were at my direction and personally dictated by me. I have reviewed the chart and agree that the record accurately reflects my personal performance of the history, physical exam, medical decision making, and the department course for this patient. I have also personally directed, reviewed, and agree with the discharge instructions and disposition.
[2018-03-24 15:47] VITALS: RESP 18
[2018-03-24 16:47] VITALS: BP 148/91; PULSE 77; TEMP 97.7; O2SAT 100
--- NOTE | 2018-03-27 05:41 | CARD ---
APPROVED REPORT EKG Measurement Heart [id number] <Conclusion> Normal sinus rhythm Prolonged QT Abnormal ECG
== END 2018-03-24 16:53 | disposition home or self-care (01) ==
LOC: C.ER 13:01
DX: E10.649 Type 1 diabetes mellitus with hypoglycemia without coma (principal); Z79.4 Long term (current) use of insulin
CPT/HCPCS: 71045; 80053; 82803; 82948; 83690; 84484; 85025; 93005; 96374; 99285; J7030

== ENCOUNTER 2018-04-27 20:43 | Emergency (ER) | payer OTHER ==
[2018-04-27 20:44] VITALS: BMI 25.8
[2018-04-27] MEDS ORDERED: Dextrose 50% SYRINGE Inj (50 ml) ONE ×2 (21:06→21:48)
[2018-04-27] MEDS ORDERED: Dextrose 50% SYRINGE Inj (50 ml) IVP STA (21:08)
[2018-04-27] MEDS ORDERED: Sodium Chloride 0.9% 1,000 ML IV ONE ×2 (21:08→22:54)
--- NOTE | 2018-04-27 21:08 | C.PDOC ---
History Of Present Illness 32 year old male is brought into the emergency department by EMS after being found on the street with "some white substance" under his nose. Currently, the patient's blood sugar is low in the ED. He states that he is an insulin- dependent diabetic, and that he took insulin today but did not eat. Patient denies using drugs. Time Seen by Provider: 04/27/18 21:06 Chief Complaint (Nursing): Substance Abuse History Per: Patient, EMS History/Exam Limitations: no limitations Onset/Duration Of Symptoms: Hrs Current Symptoms Are (Timing): Still Present Causative (Exacerbating) Factor(s): Missed A Meal, Ate Less Than Normal, Other ( did not eat) Treatment Prior To Provider Evaluation: None Past Medical History Reviewed: Historical Data, Nursing Documentation, Vital Signs Vital Signs: Last Vital Signs Temp 97.5 F L 04/28/18 03:13 Pulse 74 04/28/18 03:13 Resp 16 04/28/18 03:13 BP 110/75 04/28/18 03:13 Pulse Ox 100 04/28/18 03:13 - Medical History PMH: Diabetes (Type 1) Denies: Chronic Kidney Disease Surgical History: No Surg Hx - [facility] Procedures DIVISION OF RIGHT LOWER LEG TENDON, PERC ENDO APPROACH (08/26/17) FLUOROSCOPY OF RIGHT FOOT (08/26/17) INSERTION OF EXT FIX INTO R METATARSAL, PERC APPROACH (08/26/17) REPLACEMENT OF R METATARSAL WITH SYNTH SUB, OPEN APPROACH (08/26/17) Family History: States: No Known Family Hx - Social History Hx Tobacco Use: Yes (1 pack per day x10 years) Hx Alcohol Use: No Hx Substance Use: Yes - Immunization History Hx Tetanus Toxoid Vaccination: No Hx Influenza Vaccination: Yes Hx Pneumococcal Vaccination: Yes Review Of Systems Cardiovascular: Positive for: Other (hypoglycemia) Physical Exam - Physical Exam Appears: Non-toxic, No Acute Distress Skin: Warm, Dry Head: Atraumatic Eye(s): bilateral: PERRL, EOMI Oral Mucosa: Moist Throat: No Erythema, No Exudate Neck: Normal ROM, Supple Chest: Symmetrical, No Tenderness Cardiovascular: Rhythm Regular, No Murmur Respiratory: No Rales, No Rhonchi, No Wheezing Gastrointestinal/Abdominal: Soft, No Tenderness, No Guarding, No Rebound Extremity: No Tenderness, No Swelling Pulses: Left Dorsalis Pedis: Normal, Right Dorsalis Pedis: Normal Neurological/Psych: Oriented x3, Other (no focal deficits) ED Course And Treatment - Laboratory Results Result Diagrams: 04/27/18 21:27 04/27/18 21:27 O2 Sat by Pulse Oximetry: 100 (RA) Pulse Ox Interpretation: Normal Progress Note: Upon arrival to the ED, patient's blood glucose was found to be 20. Patient was administered 1 amp of D50. Plan: ABG. CMP. Drug Screen. Lipase. CBC. D50. NaCl IV Fluids. Urinalysis Reevaluation Time: 04:34 Reassessment Condition: Improved Disposition Counseled Patient/Family Regarding: Studies Performed, Diagnosis, Need For Followup - Disposition Referrals: Jose Ramon So MD [Non-Staff] - Disposition: HOME/ ROUTINE Disposition Time: 21:08 Condition: FAIR Additional Instructions: Please eat after taking your insulin. Check your sugars at least 4 times a day and keep a record Instructions: Low Blood Sugar, Adult (DC), Low Blood Sugar in People With Diabetes Forms: [employer] Connect (Marshallese) - Clinical Impression Clinical Impression: Hypoglycemia - Scribe Statement The provider has reviewed the documentation as recorded by the Scribe (Kelvin Cortez) Provider Attestation: All medical record entries made by the Scribe were at my direction and personally dictated by me. I have reviewed the chart and agree that the record accurately reflects my personal performance of the history, physical exam, medical decision making, and the department course for this patient. I have also personally directed, reviewed, and agree with the discharge instructions and disposition.
[2018-04-27 21:35] LABS: BASO % 0.5 % (0.0-2.0); EOS # 0.1 K/uL (0.0-0.7); EOS % 1.7 % (0.0-4.0); HEMOGLOBIN 11.5 g/dL (12.0-18.0); NEUT # 4.8 K/uL (1.8-7.0)
[2018-04-27 21:40] LABS: LYMPH # 2.4 K/uL (1.0-4.3); LYMPH % 30.1 % (20.0-40.0); MEAN CELL VOLUME 85.6 fL (80.0-94.0); MEAN CORPUSCULAR HEMOGLOBIN 27.9 pg (27.0-31.0); MEAN CORPUSCULAR HGB CONC 32.6 g/dL (33.0-37.0); MEAN PLATELET VOLUME 8.9 fL (7.2-11.7); MONO # 0.6 K/uL (0.0-0.8); MONO % 7.9 % (0.0-10.0); NEUT % 59.8 % (50.0-75.0); NRBC % 0.1 % (0.0-2.0); RBC 4.13 Mil/uL (4.40-5.90); RED CELL DISTRIBUTION WIDTH 16.5 % (11.5-14.5)
[2018-04-27 21:42] LABS: ABG ALLEN TEST POS; ARTERIAL BLOOD GAS HCO3 23.2 mmol/L (21-28); ARTERIAL BLOOD GAS O2 SAT 98.6 % (95-98); ARTERIAL BLOOD GAS PCO2 44 mm/Hg (35-45); ARTERIAL BLOOD GAS PH 7.34 (7.35-7.45); ARTERIAL BLOOD GAS PO2 119 mm/Hg (80-100); ARTERIAL BLOOD GAS TCO2 25.1 mmol/L (22-28)
[2018-04-27] MEDS ORDERED: Dextrose 50% SYRINGE Inj (50 ml) IV STA ×2 (21:44→23:18)
[2018-04-27 21:50] LABS: ALBUMIN 3.9 g/dL (3.5-5.0); ALT/SGPT 14 U/L (21-72); AST/SGOT 29 U/L (17-59); BLOOD UREA NITROGEN 16 mg/dL (9-20); CALCIUM 8.7 mg/dl (8.6-10.4); GFR AFRICAN-AMERICAN > 60; GFR NON-AFRICAN AMERICAN > 60; LIPASE 16 U/L (23-300)
[2018-04-27] MEDS ORDERED: Sodium Chloride 0.9% 1,000 ML ONE (22:58)
[2018-04-27] MEDS ORDERED: Dextrose 5%/0.45% NS 1,000 ML IV ONE (23:19)
[2018-04-27 23:56] LABS: SPERM URINE RARE /hpf; URINE BACTERIA RARE (<OCC); URINE BILIRUBIN NEGATIVE (NEGATIVE); URINE BLOOD 2+ (NEGATIVE); URINE CLARITY Clear (Clear); URINE COLOR Yellow (YELLOW); URINE GLUCOSE (UA) 2+ mg/dL (Normal); URINE LEUKOCYTE ESTERASE NEG Leu/uL (Negative); URINE PROTEIN 2+ mg/dL (NEGATIVE); URINE UROBILINOGEN NORMAL mg/dL (0.2-1.0)
[2018-04-28 00:06] LABS: BENZODIAZEPINES, UR NEGATIVE (NEGATIVE); OPIATES, UR NEGATIVE (NEGATIVE); PHENCYCLIDINE, UR NEGATIVE (NEGATIVE)
[2018-04-28 00:33] LABS: BARBITURATES, UR NEGATIVE (NEGATIVE)
[2018-04-28 05:34] VITALS: BP 110/68; PULSE 76; RESP 20; TEMP 97.9
[2018-04-28 05:55] VITALS: O2SAT 100
== END 2018-04-28 06:24 | disposition home or self-care (01) ==
LOC: C.ER 20:43
DX: E10.649 Type 1 diabetes mellitus with hypoglycemia without coma (principal); Z79.4 Long term (current) use of insulin
CPT/HCPCS: 36600; 80053; 80324; 80345; 80346; 80349; 80353; 80358; 80361; 81001; 82803; 82948; 83690; 83992; 85025; 96361; 96374; 96376; 99285; J7030; J7042

== ENCOUNTER 2018-05-16 01:14 | Emergency (ER) | payer OTHER ==
--- NOTE | 2018-05-16 01:25 | C.PDOC ---
History Of Present Illness The patient is brought to the ED by EMS after he was found unresponsive at work prior to arrival. Patient has history of insulin dependent diabetes and was found hypoglycemic with finger stick blood glucose of 20 mg/dL on scene. Patient was given one amp of d50, with improvement. Patient denies nausea, vomiting. Time Seen by Provider: 05/16/18 01:25 History Per: Patient, EMS History/Exam Limitations: no limitations Onset/Duration Of Symptoms: Hrs Current Symptoms Are (Timing): Better Severity: None Pain Scale Rating Of: 0 Current Diabetic Medications: Insulin Causative (Exacerbating) Factor(s): Other (unknown ) Associated Infectious Symptoms: denies: Nausea, Vomiting Treatment Prior To Provider Evaluation: D50W Given Response To Treatment: Good Response Recent travel outside of the [place]: No Additional History Per: Patient Past Medical History Reviewed: Historical Data, Nursing Documentation, Vital Signs Vital Signs: Last Vital Signs Temp 97.5 F L 05/16/18 03:13 Pulse 74 05/16/18 03:13 Resp 16 05/16/18 03:13 BP 161/106 H 05/16/18 01:28 Pulse Ox 99 05/16/18 03:13 - Medical History PMH: Diabetes (Type 1) Denies: Chronic Kidney Disease Surgical History: No Surg Hx - [facility] Procedures DIVISION OF RIGHT LOWER LEG TENDON, PERC ENDO APPROACH (08/26/17) FLUOROSCOPY OF RIGHT FOOT (08/26/17) INSERTION OF EXT FIX INTO R METATARSAL, PERC APPROACH (08/26/17) REPLACEMENT OF R METATARSAL WITH SYNTH SUB, OPEN APPROACH (08/26/17) Family History: States: Unknown Family Hx - Social History Hx Tobacco Use: Yes (1 pack per day x10 years) Hx Alcohol Use: No Hx Substance Use: Yes - Immunization History Hx Tetanus Toxoid Vaccination: No Hx Influenza Vaccination: Yes Hx Pneumococcal Vaccination: Yes Review Of Systems Constitutional: Negative for: Fever, Chills Cardiovascular: Positive for: Other (low blood glucose level ). Negative for: Chest Pain, Palpitations Respiratory: Negative for: Cough, Shortness of Breath Gastrointestinal: Negative for: Nausea, Vomiting, Abdominal Pain Skin: Negative for: Rash, Lesions, Jaundice, Bruising Neurological: Positive for: Dizziness, Other (lightheadedness ) Psych: Negative for: Anxiety Physical Exam - Physical Exam Appears: Non-toxic, No Acute Distress Skin: Warm, Dry, Other (healing ulcer on lateral aspect of right foot. dressing and protective boot in place ) Head: Normacephalic Eye(s): bilateral: Normal Inspection Oral Mucosa: Moist Neck: Supple Chest: Symmetrical, No Deformity, No Tenderness Cardiovascular: Rhythm Regular, No Murmur Respiratory: No Rales, No Rhonchi, No Wheezing Extremity: Normal ROM, Capillary Refill (less than 2 seconds ) Pulses: Left Dorsalis Pedis: Normal, Right Dorsalis Pedis: Normal Neurological/Psych: Oriented x3 ED Course And Treatment - Laboratory Results Result Diagrams: 05/16/18 01:54 05/16/18 01:54 O2 Sat by Pulse Oximetry: 100 (on RA) Pulse Ox Interpretation: Normal Progress Note: Bloodwork and urinalysis ordered and reviewed. IV Fluids given. Reevaluation Time: 05:15 Reassessment Condition: Improved Medical Decision Making Medical Decision Making: Upon provider reevaluation patient is feeling better, is medically stable, and requires no further treatment in the ED at this time. Patient will be discharged home . Counseling was provided and all questions were answered regarding diagnosis and need for follow up with the referred clinic. There is agreement to discharge plan. Return if symptoms persist or worsen. Disposition Counseled Patient/Family Regarding: Studies Performed, Diagnosis, Need For Followup - Disposition Referrals: [facility] [Outside] [facility] [Outside] Disposition: HOME/ ROUTINE Disposition Time: 01:25 Condition: FAIR Additional Instructions: Please check your sugars at least 4 times a day and keep a record of it Instructions: Low Blood Sugar, Adult (DC) Forms: Work Excuse - Clinical Impression Clinical Impression: Hypoglycemia
[2018-05-16] MEDS ORDERED: Sodium Chloride 0.9% 1,000 ML IV ONE (01:28)
[2018-05-16 01:29] VITALS: BMI 25.0
[2018-05-16 01:56] LABS: VENOUS BLOOD GAS BASE EXCESS 0.1 mmol/L (0.0-2.0); VENOUS BLOOD GAS PCO2 64 mmHg (40-60); VENOUS BLOOD GAS PO2 27 mm/Hg (30-55); VENOUS BLOOD PH 7.26 (7.32-7.43)
[2018-05-16 01:59] LABS: BASO # 0.1 K/uL (0.0-0.2); BASO % 0.7 % (0.0-2.0); EOS # 0.1 K/uL (0.0-0.7); EOS % 1.1 % (0.0-4.0); HEMOGLOBIN 11.8 g/dL (12.0-18.0); LYMPH # 2.6 K/uL (1.0-4.3); LYMPH % 22.8 % (20.0-40.0); MEAN CELL VOLUME 86.1 fL (80.0-94.0); MEAN CORPUSCULAR HEMOGLOBIN 28.3 pg (27.0-31.0); MEAN CORPUSCULAR HGB CONC 32.9 g/dL (33.0-37.0); MEAN PLATELET VOLUME 8.6 fL (7.2-11.7); MONO # 0.7 K/uL (0.0-0.8); MONO % 6.1 % (0.0-10.0); NEUT # 7.9 K/uL (1.8-7.0); NEUT % 69.3 % (50.0-75.0); RBC 4.17 Mil/uL (4.40-5.90); RED CELL DISTRIBUTION WIDTH 16.4 % (11.5-14.5); WHITE BLOOD COUNT 11.3 K/uL (4.8-10.8)
[2018-05-16 02:28] LABS: ALB/GLOB RATIO 1.1 (1.0-2.1); ALBUMIN 4.5 g/dL (3.5-5.0); ALT/SGPT 26 U/L (21-72); AST/SGOT 23 U/L (17-59); BLOOD UREA NITROGEN 14 mg/dL (9-20); CALCIUM 9.6 mg/dl (8.6-10.4); GFR AFRICAN-AMERICAN > 60; GFR NON-AFRICAN AMERICAN > 60; LIPASE 14 U/L (23-300)
[2018-05-16 03:13] VITALS: RESP 16
[2018-05-16 05:31] VITALS: BP 142/93; PULSE 79; TEMP 97.9; O2SAT 98
== END 2018-05-16 05:40 | disposition home or self-care (01) ==
LOC: C.ER 01:14
DX: E11.649 Type 2 diabetes mellitus with hypoglycemia without coma (principal); Z79.4 Long term (current) use of insulin; F17.210 Nicotine dependence, cigarettes, uncomplicated

== ENCOUNTER 2018-05-22 00:35 | Emergency (ER) | payer OTHER ==
[2018-05-22 00:36] VITALS: BMI 25.0
[2018-05-22] MEDS ORDERED: Dextrose 50% SYRINGE Inj (50 ml) ONE (00:44)
[2018-05-22] MEDS ORDERED: Dextrose 50% SYRINGE Inj (50 ml) IVP STA (00:58)
--- NOTE | 2018-05-22 00:58 | C.PDOC ---
History Of Present Illness medics were called for pt being unresponsive. Pt is iddm, out with his friends, and became hypoglycemic and unresponsive. BS less than 20. back to [facility] , in the ED, after 1.5 amps of d50. Time Seen by Provider: 05/22/18 00:58 Chief Complaint (Nursing): Medical Clearance History Per: EMS History/Exam Limitations: clinical condition Onset/Duration Of Symptoms: Mins Current Symptoms Are (Timing): Still Present Severity: Severe Pain Scale Rating Of: 10 Reports Recently: Seen In ED, Treated By A Physician, Hospitalized Recent travel outside of the [place]: No Additional History Per: EMS Past Medical History Reviewed: Historical Data, Nursing Documentation, Vital Signs Vital Signs: Last Vital Signs Temp 97.7 F 05/22/18 03:46 Pulse 85 05/22/18 03:43 Resp 22 05/22/18 03:43 BP 125/77 05/22/18 03:43 Pulse Ox 100 05/22/18 03:43 - Medical History PMH: Diabetes (Type 1) Denies: Chronic Kidney Disease - [facility] Procedures DIVISION OF RIGHT LOWER LEG TENDON, PERC ENDO APPROACH (08/26/17) FLUOROSCOPY OF RIGHT FOOT (08/26/17) INSERTION OF EXT FIX INTO R METATARSAL, PERC APPROACH (08/26/17) REPLACEMENT OF R METATARSAL WITH SYNTH SUB, OPEN APPROACH (08/26/17) Family History: States: No Known Family Hx - Social History Hx Tobacco Use: Yes (1 pack per day x10 years) Hx Alcohol Use: No Hx Substance Use: No - Immunization History Hx Tetanus Toxoid Vaccination: No Hx Influenza Vaccination: Yes Hx Pneumococcal Vaccination: Yes Review Of Systems Review Of Systems: ROS cannot be obtained secondary to pt's inabilty to answer questions. Physical Exam - Physical Exam Appears: In Acute Distress Skin: Diaphoretic Head: Normacephalic Eye(s): bilateral: Normal Inspection Oral Mucosa: Dry Neck: Supple Chest: Symmetrical Cardiovascular: Rhythm Regular Respiratory: No Rales, No Rhonchi, No Wheezing Gastrointestinal/Abdominal: Soft, No Tenderness Back: Normal Inspection Extremity: Other (unresponsive, moved all extr after d50) Extremity: Bilateral: Atraumatic, No Pedal Edema Neurological/Psych: Other (initially unresposive, but back to aaox3 after 2 amps of d50) Gait: Unable To Assess ED Course And Treatment - Laboratory Results Result Diagrams: 05/22/18 01:10 05/22/18 01:10 O2 Sat by Pulse Oximetry: 98 Pulse Ox Interpretation: Normal Progress Note: patient back to baseline after 1.5 amps of D50 Reevaluation Time: 05:19 Reassessment Condition: Improved Critical Care Time - Critical Care Note Total Time (in mins): 30 Documented critical care: time excludes all time spent performing seperately billable procedures. Disposition Counseled Patient/Family Regarding: Studies Performed, Diagnosis, Need For Followup - Disposition Referrals: Abdiel Andino MD [Medical Doctor] - Disposition: HOME/ ROUTINE Disposition Time: 00:58 Condition: FAIR Additional Instructions: Please do accuchecks at least 4 times a day and keep a record Instructions: Low Blood Sugar, Adult (DC) Forms: [facility] (Slovenian) - Clinical Impression Clinical Impression: Hypoglycemia
[2018-05-22 01:13] LABS: BASO % 0.4 % (0.0-2.0); EOS # 0.3 K/uL (0.0-0.7); EOS % 2.8 % (0.0-4.0); HEMOGLOBIN 12.9 g/dL (12.0-18.0); LYMPH # 3.8 K/uL (1.0-4.3); LYMPH % 42.5 % (20.0-40.0); MEAN CELL VOLUME 85.1 fL (80.0-94.0); MEAN CORPUSCULAR HEMOGLOBIN 28.1 pg (27.0-31.0); MEAN CORPUSCULAR HGB CONC 33.1 g/dL (33.0-37.0); MEAN PLATELET VOLUME 8.8 fL (7.2-11.7); MONO # 0.7 K/uL (0.0-0.8); MONO % 8.2 % (0.0-10.0); NEUT # 4.1 K/uL (1.8-7.0); NEUT % 46.1 % (50.0-75.0); RBC 4.57 Mil/uL (4.40-5.90); RED CELL DISTRIBUTION WIDTH 15.9 % (11.5-14.5)
[2018-05-22 01:14] LABS: VENOUS BLOOD GAS BASE EXCESS 0.6 mmol/L (0.0-2.0); VENOUS BLOOD GAS PCO2 52 mmHg (40-60); VENOUS BLOOD GAS PO2 59 mm/Hg (30-55); VENOUS BLOOD PH 7.33 (7.32-7.43)
[2018-05-22 02:18] LABS: ALB/GLOB RATIO 1.1 (1.0-2.1); ALT/SGPT 24 U/L (21-72); AST/SGOT 26 U/L (17-59); BLOOD UREA NITROGEN 17 mg/dL (9-20); GFR AFRICAN-AMERICAN > 60; GFR NON-AFRICAN AMERICAN > 60; LIPASE 22 U/L (23-300)
[2018-05-22] MEDS ORDERED: Dextrose 50% SYRINGE Inj (50 ml) IV STA (02:30)
[2018-05-22 03:02] LABS: URINE BILIRUBIN NEGATIVE (NEGATIVE); URINE BLOOD 1+ (NEGATIVE); URINE CLARITY Clear (Clear); URINE COLOR Yellow (YELLOW); URINE GLUCOSE (UA) 2+ mg/dL (Normal); URINE LEUKOCYTE ESTERASE NEG Leu/uL (Negative); URINE PROTEIN 2+ mg/dL (NEGATIVE); URINE UROBILINOGEN NORMAL mg/dL (0.2-1.0)
[2018-05-22 06:06] VITALS: BP 131/77; PULSE 81; RESP 20; TEMP 97.8; O2SAT 99
== END 2018-05-22 06:35 | disposition home or self-care (01) ==
LOC: C.ER 00:35
DX: E10.649 Type 1 diabetes mellitus with hypoglycemia without coma (principal); Z79.4 Long term (current) use of insulin

== ENCOUNTER 2018-06-08 02:19 | Emergency (ER) | payer OTHER ==
[2018-06-08 02:20] VITALS: BMI 25.0
[2018-06-08 02:48] VITALS: RESP 16
--- NOTE | 2018-06-08 02:59 | C.PDOC ---
History Of Present Illness 33 year old male with PMHx of chronic foot problems with DM ulcers presents to the ED c/o right foot pain. Patient states he had right foot surgery but has not been complaint with podiatry follow up. Patient states his boot hurts when he walks. Patient denies new injury, fall, trauma, weakness, numbness, discharge , fever. Time Seen by Provider: 06/08/18 02:50 Chief Complaint (Nursing): Lower Extremity Problem/Injury History Per: Patient History/Exam Limitations: no limitations Onset/Duration Of Symptoms: Days Current Symptoms Are (Timing): Still Present Recent travel outside of the [place]: No Additional History Per: Patient - Ankle/Foot Description Of Injury: Other Past Medical History Reviewed: Historical Data, Nursing Documentation, Vital Signs Vital Signs: Last Vital Signs Temp 98.2 F 06/08/18 03:15 Pulse 86 06/08/18 03:15 Resp 16 06/08/18 03:15 BP 117/61 06/08/18 03:15 Pulse Ox 100 06/08/18 03:31 - Medical History PMH: Diabetes (Type 1) Denies: Chronic Kidney Disease Surgical History: No Surg Hx - [facility] Procedures DIVISION OF RIGHT LOWER LEG TENDON, PERC ENDO APPROACH (08/26/17) FLUOROSCOPY OF RIGHT FOOT (08/26/17) INSERTION OF EXT FIX INTO R METATARSAL, PERC APPROACH (08/26/17) REPLACEMENT OF R METATARSAL WITH SYNTH SUB, OPEN APPROACH (08/26/17) Family History: States: Unknown Family Hx - Social History Hx Tobacco Use: Yes (1 pack per day x10 years) Hx Alcohol Use: No Hx Substance Use: Yes - Immunization History Hx Tetanus Toxoid Vaccination: No Hx Influenza Vaccination: Yes Hx Pneumococcal Vaccination: Yes Review Of Systems Constitutional: Negative for: Fever, Chills Musculoskeletal: Positive for: Foot Pain. Negative for: Leg Pain Skin: Positive for: Other (diabetoc ulcers). Negative for: Rash Neurological: Negative for: Weakness, Numbness Physical Exam - Physical Exam Appears: Non-toxic, No Acute Distress Skin: Normal Color, Warm, Dry Head: Atraumatic, Normacephalic Eye(s): bilateral: Normal Inspection Extremity: Normal ROM (slightly limited due to pain), No Calf Tenderness, Capillary Refill (< 2 seconds), No Deformity, Swelling (appears chronic right foot), Other (hyperpigmentation, skin changes, poor hygiene, moderate dry skin dorsal / plantar aspects. Minimally draining ulcer to lateral right foot. Warmth on palpation of right foot. Surgical scar bottom dorsal aspect of right foot) Pulses: Left Dorsalis Pedis: Normal, Right Dorsalis Pedis: Normal Neurological/Psych: Oriented x3, Normal Speech, Normal Motor, Normal Sensation Gait: Steady ED Course And Treatment O2 Sat by Pulse Oximetry: 100 (ON RA) Pulse Ox Interpretation: Normal Progress Note: Patient was advised in proper wound care and foot hygiene. Irrigation with saline and betadine solution ordered. Patient refused wound care "states that he can dohe wants an X-Ray to see his bones, no X-Ray is required at this time. Patient became verbally aggressive and agitated stating he wants to leave now. 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 - Scribe Statement The provider has reviewed the documentation as recorded by the Scribe Bogdan Pang All medical record entries made by the Scribe were at my direction and personally dictated by me. I have reviewed the chart and agree that the record accurately reflects my personal performance of the history, physical exam, medical decision making, and the department course for this patient. I have also personally directed, reviewed, and agree with the discharge instructions and disposition.
[2018-06-08 03:16] VITALS: BP 117/61; PULSE 86; TEMP 98.2
[2018-06-08 03:26] VITALS: O2SAT 100
== END 2018-06-08 03:15 | disposition home or self-care (01) ==
LOC: C.ER 02:19
DX: M79.671 Pain in right foot (principal); L97.519 Non-pressure chronic ulcer of other part of right foot with unspecified severity; E11.9 Type 2 diabetes mellitus without complications; F17.210 Nicotine dependence, cigarettes, uncomplicated

== ENCOUNTER 2018-06-18 07:34 | Emergency (ER) | payer OTHER ==
[2018-06-18 07:49] VITALS: BMI 25.2
--- NOTE | 2018-06-18 08:01 | C.PDOC ---
History Of Present Illness 33 y/o male, w/PMhx of diabetes, brought to ER by ambulance complaining of "sugar dropped again." Patient has multiple visits to [facility] ER for same complaint. Patient states that he was working a lot yesterday and he does eat when he is working.However, he notes that he his sugar drops when he is working. He had his last dose of insulin last night. 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 Time Seen by Provider: 06/18/18 07:55 Chief Complaint (Nursing): Altered Mental Status History Per: Patient History/Exam Limitations: no limitations Onset/Duration Of Symptoms: Hrs Current Symptoms Are (Timing): Still Present Severity: Moderate Past Medical History Reviewed: Historical Data, Nursing Documentation, Vital Signs Vital Signs: Last Vital Signs Temp 97.3 F L 06/18/18 07:48 Pulse 96 H 06/18/18 07:48 Resp 22 06/18/18 07:48 BP 162/96 H 06/18/18 07:48 Pulse Ox 100 06/18/18 10:35 - Medical History PMH: Diabetes (Type 1) Denies: Chronic Kidney Disease Other Surgeries: Hx of surgeries - [facility] Procedures DIVISION OF RIGHT LOWER LEG TENDON, PERC ENDO APPROACH (08/26/17) FLUOROSCOPY OF RIGHT FOOT (08/26/17) INSERTION OF EXT FIX INTO R METATARSAL, PERC APPROACH (08/26/17) REPLACEMENT OF R METATARSAL WITH SYNTH SUB, OPEN APPROACH (08/26/17) Family History: States: No Known Family Hx - Social History Hx Tobacco Use: Yes (1 pack per day x10 years) Hx Alcohol Use: No Hx Substance Use: Yes - Immunization History Hx Tetanus Toxoid Vaccination: No Hx Influenza Vaccination: Yes Hx Pneumococcal Vaccination: Yes Review Of Systems Except As Marked, All Systems Reviewed And Found Negative. Constitutional: Negative for: Fever, Chills Physical Exam - Physical Exam Appears: Non-toxic, No Acute Distress Skin: Normal Color, Warm, Dry Head: Atraumatic, Normacephalic Eye(s): bilateral: Normal Inspection Nose: Normal Oral Mucosa: Moist Cardiovascular: Rhythm Regular Respiratory: Normal Breath Sounds, No Rales, No Rhonchi, No Wheezing, Other ( NARD) Neurological/Psych: Oriented x3, Normal Speech ED Course And Treatment O2 Sat by Pulse Oximetry: 100 (RA) Pulse Ox Interpretation: Normal Progress - Re-Evaluation Re-evaluation Note: 06/18/18 11:16 TOLERATING PO WO DIFF. PS FEELS GOOD, REQUESTING DC HOME - Data Reviewed Data Reviewed: Lab, Old records Medical Decision Making Medical Decision Making: Plan: --Labs --Dextrose IV Updates: Patient has fingerstick of 53. Disposition Counseled Patient/Family Regarding: Studies Performed, Diagnosis, Need For Followup - Disposition Referrals: YOUR,PMD [Other] Disposition: HOME/ ROUTINE Disposition Time: 11:16 Condition: IMPROVED Instructions: Low Blood Sugar, Adult (DC) Forms: [employer] (Frisian) - Clinical Impression Clinical Impression: Hypoglycemia - Scribe Statement The provider has reviewed the documentation as recorded by the Scribe Luisa Frances Provider Attestation: All medical record entries made by the Scribe were at my direction and personally dictated by me. I have reviewed the chart and agree that the record accurately reflects my personal performance of the history, physical exam, medical decision making, and the department course for this patient. I have also personally directed, reviewed, and agree with the discharge instructions and disposition.
[2018-06-18] MEDS ORDERED: Dextrose 50% SYRINGE Inj (50 ml) IVP STA (08:02)
[2018-06-18 11:39] VITALS: BP 138/85; PULSE 85; RESP 16; TEMP 98.8; O2SAT 97
== END 2018-06-18 11:44 | disposition home or self-care (01) ==
LOC: C.ER 07:34
DX: E10.649 Type 1 diabetes mellitus with hypoglycemia without coma (principal); Z79.4 Long term (current) use of insulin

== ENCOUNTER 2018-07-26 02:08 | Emergency (ER) | payer OTHER ==
[2018-07-26 02:11] VITALS: BMI 25.2
[2018-07-26 02:17] VITALS: O2SAT 100
[2018-07-26] MEDS ORDERED: Dextrose 50% SYRINGE Inj (50 ml) IVP STA (03:00)
[2018-07-26] MEDS ORDERED: Dextrose 50% SYRINGE Inj (50 ml) ONE (03:01)
[2018-07-26 03:12] VITALS: BP 142/91; PULSE 84; RESP 16; TEMP 98.7
--- NOTE | 2018-07-26 04:34 | C.PDOC ---
History Of Present Illness 33 year old male is brought to the ED by EMS for evaluation of hypoglycemia. Patient states he took insulin at home and was found slumped in his car. Patient was given 20 AMP D50 and was back to baseline. Patient headache, nausea, vomit, dizziness, dysuria, hematuria, CP, SOB. Time Seen by Provider: 07/26/18 02:43 Chief Complaint (Nursing): Medical Clearance History Per: Patient, EMS History/Exam Limitations: no limitations Onset/Duration Of Symptoms: Hrs Current Symptoms Are (Timing): Still Present Recent travel outside of the [place]: No Additional History Per: Patient, EMS Past Medical History Reviewed: Historical Data, Nursing Documentation, Vital Signs Vital Signs: Last Vital Signs Temp 98.7 F 07/26/18 03:11 Pulse 84 07/26/18 03:11 Resp 16 07/26/18 03:11 BP 142/91 H 07/26/18 03:11 Pulse Ox 100 07/26/18 03:11 - Medical History PMH: Diabetes (Type 1) Denies: Chronic Kidney Disease Surgical History: No Surg Hx - [facility] Procedures DIVISION OF RIGHT LOWER LEG TENDON, PERC ENDO APPROACH (08/26/17) FLUOROSCOPY OF RIGHT FOOT (08/26/17) INSERTION OF EXT FIX INTO R METATARSAL, PERC APPROACH (08/26/17) REPLACEMENT OF R METATARSAL WITH SYNTH SUB, OPEN APPROACH (08/26/17) Family History: States: Unknown Family Hx - Social History Hx Tobacco Use: Yes (1 pack per day x10 years) Hx Alcohol Use: No Hx Substance Use: Yes - Immunization History Hx Tetanus Toxoid Vaccination: No Hx Influenza Vaccination: Yes Hx Pneumococcal Vaccination: Yes Review Of Systems Constitutional: Negative for: Fever, Chills Cardiovascular: Negative for: Chest Pain Respiratory: Negative for: Shortness of Breath Gastrointestinal: Negative for: Nausea, Vomiting Skin: Negative for: Rash Physical Exam - Physical Exam Appears: Non-toxic, No Acute Distress Skin: Warm, Dry Head: Normacephalic Eye(s): bilateral: Normal Inspection Neck: Supple Chest: Symmetrical Cardiovascular: Rhythm Regular Respiratory: No Rales, No Rhonchi, No Wheezing Gastrointestinal/Abdominal: Soft, No Tenderness, No Guarding, No Rebound Extremity: Bilateral: Atraumatic, Normal Color And Temperature, Normal ROM Neurological/Psych: Oriented x3, Normal Speech, Normal Cognition Gait: Steady ED Course And Treatment O2 Sat by Pulse Oximetry: 100 (ON RA) Pulse Ox Interpretation: Normal Progress Note: Patient refused all blood work and treatment in the ED. Patient signed AMA and left . Encouraged to return Against Medical Advice - AMA Patient Left Against Medical Advice: The patient declines admission to the hospital and wishes to leave the Emergency Department. This action is against my medical advice. This decision was made with informed refusal. The patient was told that admission to the hospital is necessary. Explanation of the reasons why were discussed. The risks of leaving were explained to the patient and include, but are not limited to, worsening of known or currently unknown conditions, permanent disability and from undiagnosed or untreated conditions. The patient has the capacity to make this informed decision and understands my explanation of the current medical problem and risks of leaving. The patient voluntarily accepts these risks and signed an AMA form documenting our conversation. The patient was given the opportunity to ask questions and reconsider. The casandra ent was encouraged to return to the Emergency Department at any time for further care. Disposition Counseled Patient/Family Regarding: Diagnosis - Disposition Disposition: AGAINST MEDICAL ADVICE Disposition Time: 03:45 Condition: FAIR Instructions: Low Blood Sugar, Adult (DC) Forms: [employer] (Icelandic) - Clinical Impression Clinical Impression: Hypoglycemia - Scribe Statement The provider has reviewed the documentation as recorded by the Scribe Bogdan Pang All medical record entries made by the Scribe were at my direction and personally dictated by me. I have reviewed the chart and agree that the record accurately reflects my personal performance of the history, physical exam, medical decision making, and the department course for this patient. I have also personally directed, reviewed, and agree with the discharge instructions and disposition.
== END 2018-07-26 03:45 | disposition left against medical advice (07) ==
LOC: C.ER 02:08
DX: E10.649 Type 1 diabetes mellitus with hypoglycemia without coma (principal); Z79.4 Long term (current) use of insulin

== ENCOUNTER 2018-08-10 01:51 | Inpatient (IN) | payer OTHER ==
[2018-08-10 01:21] LABS: BASO % 0.5 % (0.0-2.0); EOS # 0.3 K/uL (0.0-0.7); EOS % 3.2 % (0.0-4.0); HEMOGLOBIN 13.6 g/dL (12.0-18.0); LYMPH # 4.4 K/uL (1.0-4.3); LYMPH % 46.5 % (20.0-40.0); MEAN CELL VOLUME 85.7 fL (80.0-94.0); MEAN CORPUSCULAR HEMOGLOBIN 27.7 pg (27.0-31.0); MEAN CORPUSCULAR HGB CONC 32.3 g/dL (33.0-37.0); MEAN PLATELET VOLUME 8.9 fL (7.2-11.7); MONO # 0.7 K/uL (0.0-0.8); MONO % 7.4 % (0.0-10.0); NEUT % 42.4 % (50.0-75.0); NRBC % 0.1 % (0.0-2.0); RBC 4.9 Mil/uL (4.40-5.90); RED CELL DISTRIBUTION WIDTH 16.9 % (11.5-14.5); WHITE BLOOD COUNT 9.5 K/uL (4.8-10.8)
[2018-08-10 01:42] LABS: VENOUS BLOOD GAS BASE EXCESS -22.5 mmol/L (0.0-2.0); VENOUS BLOOD GAS PCO2 11 mmHg (40-60); VENOUS BLOOD GAS PO2 55 mm/Hg (30-55); VENOUS BLOOD PH 7.15 (7.32-7.43)
[~2018-08-10 01:51] MED LIST: Dextrose 50% SYRINGE Inj (50 ml) IV STA
[2018-08-10 01:54] LABS: ALB/GLOB RATIO 0.9 (1.0-2.1); ALBUMIN 4.5 g/dL (3.5-5.0); ALT/SGPT 14 U/L (21-72); AST/SGOT 19 U/L (17-59); BLOOD UREA NITROGEN 14 mg/dL (9-20); CALCIUM 9.7 mg/dl (8.6-10.4); GFR NON-AFRICAN AMERICAN > 60; LIPASE 19 U/L (23-300)
--- NOTE | 2018-08-10 01:58 | C.PDOC ---
History Of Present Illness 33 y/o male comes in stating his sugar is low and was found unresponsive. Patient had similar episodes in the past but no evidence of trauma. Accucheck was less than 20. IV was placed and patient was given Dextrose 50%. Patient is AAOx3 in the ER. Denies SI/HI. Patient is slowly returning to baseline. Time Seen by Provider: 08/10/18 01:57 EDT Chief Complaint (Nursing): Altered Mental Status History Per: Patient History/Exam Limitations: None Onset/Duration Of Symptoms: Hrs Onset Of Symptoms: Cannot Confirm Onset Current Symptoms Are (Timing): Still Present Usual Baseline: Alert Oriented Exacerbating Factor(s): Diabetic Use Of Anticoag/Antiplatelets: No Severity: Severe Pain Scale Rating Of: 0 Recent travel outside of the [place]: No Additional History Per: Patient, EMS Associated Symptoms: denies: Fever, Chills, Chest Pain, Vomiting, Diarrhea Past Medical History Reviewed: Historical Data, Nursing Documentation, Vital Signs - Medical History PMH: Diabetes Family History: States: No Known Family Hx - Social History Hx Alcohol Use: No Hx Substance Use: No Review Of Systems Constitutional: Negative for: Fever, Chills Eyes: Negative for: Redness ENT: Negative for: Throat Pain Cardiovascular: Negative for: Chest Pain Respiratory: Negative for: Shortness of Breath Gastrointestinal: Negative for: Nausea, Vomiting, Diarrhea Genitourinary: Negative for: Dysuria Musculoskeletal: Negative for: Back Pain Skin: Negative for: Rash Neurological: Positive for: Confusion, Altered Mental Status Psych: Negative for: Anxiety Physical Exam - Physical Exam Appears: In Acute Distress Skin: Warm, Dry, Other (Small superficial ulcers of dorsum of right foot) Head: Normacephalic Eye(s): bilateral: Normal Inspection Oral Mucosa: Dry Neck: Supple Chest: Symmetrical Cardiovascular: Rhythm Regular, No Murmur Respiratory: No Rales, No Rhonchi, No Wheezing Gastrointestinal/Abdominal: Soft, No Tenderness, No Distention Back: No CVA Tenderness Extremity: No Pedal Edema Extremity: Bilateral: Normal Color And Temperature, Normal ROM Pulses: Left Dorsalis Pedis: Normal, Right Dorsalis Pedis: Normal Neurological/Psych: Oriented x3, Normal Speech Gait: Unable To Assess ED Course And Treatment - Laboratory Results Result Diagrams: 08/10/18 01:12 EST 08/10/18 01:12 EST O2 Sat by Pulse Oximetry: 100 (RA) - Radiology CXR: Interpreted by Me, Viewed By Me Progress Note: Labs and urinalysis ordered. Dextrose 50% administered. Critical Care Time - Critical Care Note Total Time (in mins): 30 Documented critical care: time excludes all time spent performing seperately billable procedures. Disposition Discussed With Dr.: Sandrine Márquez Comment: accepted the pt on his service and took over the care at 4:47 AM Doctor Will See Patient In The: Hospital Counseled Patient/Family Regarding: Studies Performed, Diagnosis - Disposition Disposition: HOSPITALIZED Disposition Time: 01:58 Condition: FAIR Forms: [employer] [employer] (South Korean) - POA Present On Arrival: Poor Glycemic Control - Clinical Impression Clinical Impression: Hypoglycemia - Scribe Statement The provider has reviewed the documentation as recorded by the Deviibawa Peralta Provider Attestation: All medical record entries made by the Scribe were at my direction and person ally dictated by me. I have reviewed the chart and agree that the record accurately reflects my personal performance of the history, physical exam, medical decision making, and the department course for this patient. I have also personally directed, reviewed, and agree with the discharge instructions and disposition. Decision To Admit - Pt Status Changed To: Hospital Disposition Of: Inpatient - Admit Certification Admit to Inpatient:: After my assessment, the patient will require hospitalization for at least two midnights. This is because of the severity of symptoms shown, intensity of services needed, and/or the medical risk in this patient being treated as an outpatient. - InPatient: Physician Admission Certification:: After my assessment, the patient will require hospitalization for at least two midnights. This is because of the severity of symptoms shown, intensity of services needed, and/or the medical risk in this patient being treated as an outpatient. - . Bed Request Type: Regular Admitting Physician: Sandrine Márquez Patient Diagnosis: Hypoglycemia
[2018-08-10] MEDS ORDERED: Dextrose 50% SYRINGE Inj (50 ml) ONE (02:19)
[2018-08-10] MEDS ORDERED: Dextrose 50% SYRINGE Inj (50 ml) IV STA (03:06)
[2018-08-10 08:02] VITALS: BP 138/82; PULSE 80; RESP 20; TEMP 97.8; O2SAT 99
[2018-08-10] MEDS ORDERED: Piperacillin/Tazobact 3.375 GM in Sodium Chloride 100 ML IVPB SCH (10:45)
[2018-08-10] MEDS ORDERED: Enoxaparin 40 mg Syringe SC SCH (11:00)
--- NOTE | 2018-08-10 12:57 | CP.PCM.HP ---
Past Patient History - Infectious Disease Hx of Infectious Diseases: None - Past Medical History & Family History Past Medical History?: Yes - Past Social History Smoking Status: Current Some Days Smoker - CARDIAC Hx Cardiac Disorders: No - PULMONARY Hx Respiratory Disorders: No - NEUROLOGICAL Hx Neurological Disorder: No - HEENT Hx HEENT Problems: No - RENAL Hx Chronic Kidney Disease: No - ENDOCRINE/METABOLIC Hx Endocrine Disorders: Yes Hx Diabetes Mellitus Type 1: Yes - HEMATOLOGICAL/ONCOLOGICAL Hx Blood Disorders: No - INTEGUMENTARY Hx Dermatological Problems: No - MUSCULOSKELETAL/RHEUMATOLOGICAL Hx Falls: No - GASTROINTESTINAL Hx Diarrhea: Yes - GENITOURINARY/GYNECOLOGICAL Hx Genitourinary Disorders: No - PSYCHIATRIC Hx Psychophysiologic Disorder: No Hx Substance Use: No - SURGICAL HISTORY Other/Comment: right foot surgery x2. 1st was "cleaned". 2nd "repair" - ANESTHESIA Hx Anesthesia: Yes Hx Anesthesia Reactions: No Has any member of the family had a problem w/ anesthesia?: No Meds Allergies/Adverse Reactions: Allergies Allergy/AdvReac Type Severity Reaction Status Date / Time No Known Allergies Allergy Verified 08/10/18 01:58 EDT Physical Exam - Constitutional Appears: Well - Head Exam Head Exam: ATRAUMATIC, NORMAL INSPECTION, NORMOCEPHALIC - Eye Exam Eye Exam: EOMI, Normal appearance, PERRL Pupil Exam: NORMAL ACCOMODATION, PERRL - ENT Exam ENT Exam: Mucous Membranes Moist, Normal Exam - Neck Exam Neck exam: Positive for: Normal Inspection - Respiratory Exam Respiratory Exam: Decreased Breath Sounds - Cardiovascular Exam Cardiovascular Exam: REGULAR RHYTHM, +S1, +S2 - GI/Abdominal Exam GI & Abdominal Exam: Diminished Bowel Sounds, Soft - Rectal Exam Rectal Exam: Deferred Results - Vital Signs Recent Vital Signs: Last Vital Signs Temp 97.8 F 08/10/18 07:00 Pulse 80 08/10/18 07:00 Resp 20 08/10/18 07:00 BP 138/82 08/10/18 07:00 Pulse Ox 99 08/10/18 07:00 - Labs Result Diagrams: 08/10/18 01:12 EST 08/10/18 01:12 EST Labs: Laboratory Results - last 24 hr 08/10/18 08/10/18 08/10/18 01:12 EST 01:12 EST 01:35 EST WBC 9.5 RBC 4.90 Hgb 13.6 Hct 42.0 MCV 85.7 MCH 27.7 MCHC 32.3 L RDW 16.9 H Plt Count 358 MPV 8.9 Neut % (Auto) 42.4 L Lymph % (Auto) 46.5 H [place] % (Auto) 7.4 Eos % (Auto) 3.2 Baso % (Auto) 0.5 Neut # (Auto) 4.0 Lymph # (Auto) 4.4 H [place] # (Auto) 0.7 Eos # (Auto) 0.3 Baso # (Auto) 0.0 pO2 55 VBG pH 7.15 L* VBG pCO2 11 L* VBG HCO3 6.8 VBG Total CO2 4.1 L VBG Base Excess -22.5 L VBG Potassium 0.2 L* Glucose 195 H Lactate 0.6 L Crit Value Called To Merline jackson/rn Crit Value Called By Steve hidalgo/rt Crit Value Read Back Y Blood Gas Notified Time 145 Sodium 142 160.0 H* Potassium 3.4 L Chloride 108 H 142.0 H Carbon Dioxide 22 Anion Gap 15 BUN 14 Creatinine 0.8 Est GFR ( Amer) > 60 Est GFR (Non-Af Amer) > 60 POC Glucose (mg/dL) Random Glucose 24 L* Calcium 9.7 Total Bilirubin 0.7 AST 19 ALT 14 L Alkaline Phosphatase 169 H Total Protein 9.3 H Albumin 4.5 Globulin 4.8 H Albumin/Globulin Ratio 0.9 L Lipase 19 L Venous Blood Potassium 0.2 L* Alcohol, Quantitative < 10 08/10/18 08/10/18 08/10/18 01:56 EST 02:02 02:49 WBC RBC Hgb Hct MCV MCH MCHC RDW Plt Count MPV Neut % (Auto) Lymph % (Auto) [place] % (Auto) Eos % (Auto) Baso % (Auto) Neut # (Auto) Lymph # (Auto) [place] # (Auto) Eos # (Auto) Baso # (Auto) pO2 VBG pH VBG pCO2 VBG HCO3 VBG Total CO2 VBG Base Excess VBG Potassium Glucose Lactate Crit Value Called To Crit Value Called By Crit Value Read Back Blood Gas Notified Time Sodium Potassium Chloride Carbon Dioxide Anion Gap BUN Creatinine Est GFR ( Amer) Est GFR (Non-Af Amer) POC Glucose (mg/dL) 80 259 H 165 H Random Glucose Calcium Total Bilirubin AST ALT Alkaline Phosphatase Total Protein Albumin Globulin Albumin/Globulin Ratio Lipase Venous Blood Potassium Alcohol, Quantitative 08/10/18 08/10/18 08/10/18 04:29 06:47 11:17 WBC RBC Hgb Hct MCV MCH MCHC RDW Plt Count MPV Neut % (Auto) Lymph % (Auto) [place] % (Auto) Eos % (Auto) Baso % (Auto) Neut # (Auto) Lymph # (Auto) [place] # (Auto) Eos # (Auto) Baso # (Auto) pO2 VBG pH VBG pCO2 VBG HCO3 VBG Total CO2 VBG Base Excess VBG Potassium Glucose Lactate Crit Value Called To Crit Value Called By Crit Value Read Back Blood Gas Notified Time Sodium Potassium Chloride Carbon Dioxide Anion Gap BUN Creatinine Est GFR ( Amer) Est GFR (Non-Af Amer) POC Glucose (mg/dL) 116 H 134 H 250 H Random Glucose Calcium Total Bilirubin AST ALT Alkaline Phosphatase Total Protein Albumin Globulin Albumin/Globulin Ratio Lipase Venous Blood Potassium Alcohol, Quantitative
--- NOTE | 2018-08-10 17:08 | CP.PCM.PCO ---
Physician Communication Note - Physician Communication Note Physician Communication Note: Patient left hospital prior to podiatry evaluation
== END 2018-08-10 17:12 | disposition left against medical advice (07) | DRG 295 ==
LOC: C.ER 01:51 → C.5S 04:45 → MERGE 04:45 → C.5S 05:31
PROVIDERS: ADMIT Internal Medicine Nephrology; ATTEND Internal Medicine Nephrology
DX: E10.649 Type 1 diabetes mellitus with hypoglycemia without coma (principal); Z79.4 Long term (current) use of insulin; F17.210 Nicotine dependence, cigarettes, uncomplicated

== ENCOUNTER 2018-09-24 19:04 | Emergency (ER) | payer OTHER ==
[2018-09-24 19:05] VITALS: BMI 25.2
[2018-09-24] MEDS ORDERED: Dextrose 50% SYRINGE Inj (50 ml) IV STA (19:14)
[2018-09-24] MEDS ORDERED: Sodium Chloride 0.9% 1,000 ML IV ONE (19:16)
--- NOTE | 2018-09-24 19:34 | C.PDOC ---
History Of Present Illness 33 year old male presents to the ER via EMS after being found unresponsive. Patient was noted to be hypoglycemic earlier today. On arrival, POC glucose level was only 25, d50 given with good response, patient is now awake, alert, with no focal deficits. Chief Complaint (Nursing): Altered Mental Status History Per: EMS History/Exam Limitations: None Onset/Duration Of Symptoms: Hrs Onset Of Symptoms: Cannot Confirm Onset Current Symptoms Are (Timing): Still Present Usual Baseline: Alert Oriented Exacerbating Factor(s): Diabetic Past Medical History Reviewed: Historical Data, Nursing Documentation, Vital Signs Vital Signs: Last Vital Signs Temp Pulse 98 H 09/24/18 19:10 Resp 16 09/24/18 19:10 BP 134/64 09/24/18 19:10 Pulse Ox 99 09/24/18 19:10 - Medical History PMH: Diabetes (Type 1) Denies: Chronic Kidney Disease - [facility] Procedures DIVISION OF RIGHT LOWER LEG TENDON, PERC ENDO APPROACH (08/26/17) FLUOROSCOPY OF RIGHT FOOT (08/26/17) INSERTION OF EXT FIX INTO R METATARSAL, PERC APPROACH (08/26/17) REPLACEMENT OF R METATARSAL WITH SYNTH SUB, OPEN APPROACH (08/26/17) Family History: States: Diabetes - Social History Hx Tobacco Use: Yes (1 pack per day x10 years) Hx Alcohol Use: No Hx Substance Use: Yes - Immunization History Hx Tetanus Toxoid Vaccination: No Hx Influenza Vaccination: Yes Hx Pneumococcal Vaccination: Yes Review Of Systems Constitutional: Negative for: Fever, Chills Cardiovascular: Negative for: Chest Pain, Palpitations Respiratory: Negative for: Cough, Shortness of Breath Gastrointestinal: Negative for: Nausea, Vomiting Neurological: Negative for: Weakness, Numbness Physical Exam - Physical Exam Appears: Non-toxic Skin: Diaphoretic (Markedly) Head: Atraumatic, Normacephalic Eye(s): bilateral: Normal Inspection, PERRL, EOMI Nose: Normal Oral Mucosa: Dry Neck: Normal, Supple Chest: Symmetrical, No Tenderness Cardiovascular: Rhythm Regular Respiratory: Normal Breath Sounds, No Rales, No Rhonchi, No Wheezing Gastrointestinal/Abdominal: Soft, No Tenderness Back: No CVA Tenderness Neurological/Psych: Oriented x3, Normal Speech ED Course And Treatment - Laboratory Results Result Diagrams: 09/24/18 19:36 09/24/18 23:54 ECG: Interpreted By Me, Viewed By Me ECG Rhythm: Sinus Rhythm ECG Interpretation: Normal, No Acute Changes Interpretation Of ECG: NSR, normal tracings. Rate From EC O2 Sat by Pulse Oximetry: 99 (Room air) Pulse Ox Interpretation: Normal Progress Note: Blood work, EKG, and urinalysis ordered. IV fluids and d50 administered. Disposition Counseled Patient/Family Regarding: Diagnosis - Disposition Referrals: [facility] [Outside] Disposition: HOME/ ROUTINE Disposition Time: 01:13 Condition: STABLE Instructions: Low Blood Sugar, Adult (DC), Hypothermia Forms: [employer] (Danish) - POA Present On Arrival: None - Clinical Impression Clinical Impression: Hypoglycemia, Hypothermia associated with environmental change, Type 1 diabetes mellitus - Scribe Statement The provider has reviewed the documentation as recorded by the Scribe Nathan Gonzales All medical record entries made by the Scribe were at my direction and personally dictated by me. I have reviewed the chart and agree that the record accurately reflects my personal performance of the history, physical exam, medical decision making, and the department course for this patient. I have also personally directed, reviewed, and agree with the discharge instructions and disposition.
[2018-09-24 19:45] LABS: BASO % 0.5 % (0.0-2.0); EOS # 0.2 K/uL (0.0-0.7); EOS % 2.3 % (0.0-4.0); HEMOGLOBIN 14.1 g/dL (12.0-18.0); LYMPH # 3.2 K/uL (1.0-4.3); LYMPH % 35.2 % (20.0-40.0); MEAN CELL VOLUME 87.4 fL (80.0-94.0); MEAN CORPUSCULAR HEMOGLOBIN 28.5 pg (27.0-31.0); MEAN CORPUSCULAR HGB CONC 32.6 g/dL (33.0-37.0); MEAN PLATELET VOLUME 8.9 fL (7.2-11.7); MONO # 0.6 K/uL (0.0-0.8); MONO % 6.5 % (0.0-10.0); NEUT % 55.5 % (50.0-75.0); NRBC % 0.1 % (0.0-2.0); RBC 4.96 Mil/uL (4.40-5.90); RED CELL DISTRIBUTION WIDTH 17.5 % (11.5-14.5)
[2018-09-24 20:09] LABS: ALB/GLOB RATIO 0.9 (1.0-2.1); ALBUMIN 4.6 g/dL (3.5-5.0); ALT/SGPT 16 U/L (21-72); AST/SGOT 34 U/L (17-59); BLOOD UREA NITROGEN 24 mg/dL (9-20); CALCIUM 9.9 mg/dl (8.6-10.4); GFR NON-AFRICAN AMERICAN > 60
[2018-09-24 21:09] LABS: URINE BACTERIA RARE (<OCC); URINE BILIRUBIN NEGATIVE (NEGATIVE); URINE BLOOD 2+ (NEGATIVE); URINE CLARITY Clear (Clear); URINE COLOR Straw (YELLOW); URINE GLUCOSE (UA) 1+ mg/dL (Normal); URINE LEUKOCYTE ESTERASE NEG Leu/uL (Negative); URINE PROTEIN 2+ mg/dL (NEGATIVE); URINE UROBILINOGEN NORMAL mg/dL (0.2-1.0)
[2018-09-24 21:23] LABS: BARBITURATES, UR NEGATIVE (NEGATIVE); BENZODIAZEPINES, UR NEGATIVE (NEGATIVE); OPIATES, UR NEGATIVE (NEGATIVE); PHENCYCLIDINE, UR NEGATIVE (NEGATIVE)
[2018-09-24 23:52] VITALS: TEMP 98.4; O2SAT 99
[2018-09-25 00:13] LABS: BLOOD UREA NITROGEN 21 mg/dL (9-20); CALCIUM 8.7 mg/dl (8.6-10.4); GFR NON-AFRICAN AMERICAN > 60
[2018-09-25 01:30] VITALS: BP 118/73; PULSE 75; RESP 13
--- NOTE | 2018-09-25 11:03 | CARD ---
APPROVED REPORT Date of service: 09/24/2018 EKG Measurement Heart [id number] <Conclusion> Normal sinus rhythm Normal ECG
== END 2018-09-25 01:54 | disposition home or self-care (01) ==
LOC: C.ER 19:04
DX: E10.649 Type 1 diabetes mellitus with hypoglycemia without coma (principal); T68.XXXA Hypothermia, initial encounter
CPT/HCPCS: 80053; 80324; 80345; 80346; 80349; 80353; 80358; 80361; 81001; 82948; 83992; 85025; 93005; 96374; 99285; J7030

== ENCOUNTER 2018-10-14 01:08 | Emergency (ER) | payer OTHER ==
[2018-10-14 01:09] VITALS: BMI 25.2
[2018-10-14 01:32] VITALS: O2SAT 100
[2018-10-14 01:57] VITALS: TEMP 97.4
[2018-10-14 02:07] LABS: BASO % 0.2 % (0.0-2.0); EOS % 0.2 % (0.0-4.0); HEMOGLOBIN 12.6 g/dL (12.0-18.0); LYMPH # 1.5 K/uL (1.0-4.3); LYMPH % 11.6 % (20.0-40.0); MEAN CELL VOLUME 87.7 fL (80.0-94.0); MEAN CORPUSCULAR HEMOGLOBIN 28.8 pg (27.0-31.0); MEAN CORPUSCULAR HGB CONC 32.9 g/dL (33.0-37.0); MEAN PLATELET VOLUME 8.1 fL (7.2-11.7); MONO # 0.6 K/uL (0.0-0.8); MONO % 4.8 % (0.0-10.0); NEUT # 11.1 K/uL (1.8-7.0); NEUT % 83.2 % (50.0-75.0); RBC 4.37 Mil/uL (4.40-5.90); RED CELL DISTRIBUTION WIDTH 16.7 % (11.5-14.5); WHITE BLOOD COUNT 13.4 K/uL (4.8-10.8)
--- NOTE | 2018-10-14 02:11 | C.PDOC ---
History Of Present Illness 33 year old male with PMHx of insulin dependant DM is brought to the ED by EMS for evaluation of hypoglycemia. Patient's acchucheck was 28, patient reports he has been having numerous episodes of hypoglycemia. Patient states sometimes he is not hungry and does not give himself insulin. Patient denies fever, chills, rash, CP, SOB, weakness, numbness. Time Seen by Provider: 10/14/18 02:02 Chief Complaint (Nursing): Medical Clearance History Per: Patient, EMS History/Exam Limitations: no limitations Onset/Duration Of Symptoms: Hrs Current Symptoms Are (Timing): Still Present Recent travel outside of the [place]: No Additional History Per: Patient, EMS Past Medical History Reviewed: Historical Data, Nursing Documentation, Vital Signs Vital Signs: Last Vital Signs Temp 97.4 F L 10/14/18 01:53 Pulse 97 H 10/14/18 01:22 Resp 20 10/14/18 01:22 BP 148/94 H 10/14/18 01:22 Pulse Ox 100 10/14/18 01:22 - Medical History PMH: Diabetes (Type 1) Denies: Chronic Kidney Disease Surgical History: No Surg Hx - [facility] Procedures DIVISION OF RIGHT LOWER LEG TENDON, PERC ENDO APPROACH (08/26/17) FLUOROSCOPY OF RIGHT FOOT (08/26/17) INSERTION OF EXT FIX INTO R METATARSAL, PERC APPROACH (08/26/17) REPLACEMENT OF R METATARSAL WITH SYNTH SUB, OPEN APPROACH (08/26/17) Family History: States: Unknown Family Hx, Diabetes - Social History Hx Tobacco Use: Yes (1 pack per day x10 years) Hx Alcohol Use: Yes Hx Substance Use: Yes - Immunization History Hx Tetanus Toxoid Vaccination: No Hx Influenza Vaccination: No Hx Pneumococcal Vaccination: No Review Of Systems Constitutional: Negative for: Fever, Chills Cardiovascular: Negative for: Chest Pain, Palpitations Respiratory: Negative for: Shortness of Breath Gastrointestinal: Negative for: Nausea, Vomiting, Abdominal Pain Skin: Negative for: Rash Neurological: Negative for: Weakness, Numbness, Altered Mental Status, Dizziness Physical Exam - Physical Exam Appears: Non-toxic, No Acute Distress Skin: Warm, Dry Head: Normacephalic Eye(s): bilateral: Normal Inspection Oral Mucosa: Moist Neck: Supple Chest: Symmetrical Cardiovascular: Rhythm Regular Respiratory: No Rales, No Rhonchi, No Wheezing Gastrointestinal/Abdominal: Soft, No Tenderness, No Guarding, No Rebound Back: No CVA Tenderness Extremity: Bilateral: Atraumatic, Normal Color And Temperature, Normal ROM Neurological/Psych: Oriented x3, Normal Speech, Normal Cognition Gait: Steady ED Course And Treatment - Laboratory Results Result Diagrams: 10/14/18 02:04 10/14/18 02:04 O2 Sat by Pulse Oximetry: 100 (ON RA) Pulse Ox Interpretation: Normal Progress Note: Plan: - VBG. - LAbs Reevaluation Time: 06:08 Reassessment Condition: Improved Disposition Counseled Patient/Family Regarding: Studies Performed, Diagnosis, Need For Followup - Disposition Referrals: Jose Ramon So MD [Non-Staff] - Disposition: HOME/ ROUTINE Disposition Time: 01:45 Condition: FAIR Additional Instructions: Please eat after you take your insulin Prescriptions: Ondansetron ODT [Zofran ODT] 1 odt PO BID PRN #6 odt PRN Reason: Nausea/Vomiting Instructions: Low Blood Sugar, Adult (DC) Forms: [employer] (Croatian) - Clinical Impression Clinical Impression: Hypoglycemia - Scribe Statement The provider has reviewed the documentation as recorded by the Scribe Bogdan Pang All medical record entries made by the Scribe were at my direction and personally dictated by me. I have reviewed the chart and agree that the record accurately reflects my personal performance of the history, physical exam, medical decision making, and the department course for this patient. I have also personally directed, reviewed, and agree with the discharge instructions and disposition.
[2018-10-14 02:45] LABS: ALB/GLOB RATIO 1.1 (1.0-2.1); ALBUMIN 4.4 g/dL (3.5-5.0); ALT/SGPT 20 U/L (21-72); AST/SGOT 26 U/L (17-59); BLOOD UREA NITROGEN 30 mg/dL (9-20); CALCIUM 8.4 mg/dl (8.6-10.4); GFR NON-AFRICAN AMERICAN > 60
[2018-10-14 02:49] LABS: VENOUS BLOOD GAS PCO2 43 mmHg (40-60); VENOUS BLOOD GAS PO2 24 mm/Hg (30-55); VENOUS BLOOD PH 7.27 (7.32-7.43)
[2018-10-14] MEDS ORDERED: Dextrose 50% SYRINGE Inj (50 ml) IV STA (03:18)
[2018-10-14] MEDS ORDERED: Dextrose 50% SYRINGE Inj (50 ml) ONE (03:22)
[2018-10-14 06:26] VITALS: BP 163/97; PULSE 98; RESP 22
== END 2018-10-14 06:42 | disposition home or self-care (01) ==
LOC: C.ER 01:08
DX: E10.649 Type 1 diabetes mellitus with hypoglycemia without coma (principal); Z79.4 Long term (current) use of insulin; F17.210 Nicotine dependence, cigarettes, uncomplicated

== ENCOUNTER 2018-10-16 18:17 | Emergency (ER) | payer OTHER ==
[2018-10-16 18:17] VITALS: BMI 25.2
[2018-10-16] MEDS ORDERED: Sodium Chloride 0.9% 1,000 ML IV SCH ×2 (18:45→19:21)
[2018-10-16 18:57] LABS: BASO % 0.6 % (0.0-2.0); EOS # 0.1 K/uL (0.0-0.7); EOS % 1.5 % (0.0-4.0); HEMOGLOBIN 12.5 g/dL (12.0-18.0); LYMPH # 2.6 K/uL (1.0-4.3); LYMPH % 33.1 % (20.0-40.0); MEAN CORPUSCULAR HEMOGLOBIN 28.3 pg (27.0-31.0); MEAN CORPUSCULAR HGB CONC 32.2 g/dL (33.0-37.0); MEAN PLATELET VOLUME 8.7 fL (7.2-11.7); MONO # 0.6 K/uL (0.0-0.8); NEUT # 4.5 K/uL (1.8-7.0); NEUT % 56.8 % (50.0-75.0); RBC 4.41 Mil/uL (4.40-5.90); RED CELL DISTRIBUTION WIDTH 16.5 % (11.5-14.5)
[2018-10-16] MEDS ORDERED: Dextrose 50% SYRINGE Inj (50 ml) IV STA ×2 (18:59→19:00)
--- NOTE | 2018-10-16 19:07 | C.PDOC ---
History Of Present Illness 33 year old male, whose past medical history includes IDDM, is brought to the ED by his brother for sudden onset of unresponsiveness which occurred today. Patient's brother states that they were fixing a car outside when symptoms sta rted. Patient has been evaluated in multiple emergency rooms within the [facility] for similar symptoms. Time of patient's last meal is unknown. Patient's brother states that patient has been vomiting for the past two days. His brother denies drug or alcohol use. Patient unable to provide history due to his clinical condition. Time Seen by Provider: 10/16/18 18:18 Chief Complaint (Nursing): High Blood Sugar History Per: Family (brother ) History/Exam Limitations: clinical condition Onset/Duration Of Symptoms: Sudden Onset Current Symptoms Are (Timing): Still Present Additional History Per: Family Past Medical History Reviewed: Historical Data, Nursing Documentation, Vital Signs Vital Signs: Last Vital Signs Temp 92.6 F L 10/16/18 18:40 Pulse 96 H 10/16/18 18:40 Resp 20 10/16/18 18:40 BP 142/71 10/16/18 18:40 Pulse Ox 100 10/16/18 18:40 - Medical History PMH: Diabetes (Type 1) Denies: Chronic Kidney Disease Surgical History: No Surg Hx - [facility] Procedures DIVISION OF RIGHT LOWER LEG TENDON, PERC ENDO APPROACH (08/26/17) FLUOROSCOPY OF RIGHT FOOT (08/26/17) INSERTION OF EXT FIX INTO R METATARSAL, PERC APPROACH (08/26/17) REPLACEMENT OF R METATARSAL WITH SYNTH SUB, OPEN APPROACH (08/26/17) Family History: States: Diabetes - Social History Hx Tobacco Use: Yes (1 pack per day x10 years) Hx Alcohol Use: Yes Hx Substance Use: Yes - Immunization History Hx Tetanus Toxoid Vaccination: No Hx Influenza Vaccination: No Hx Pneumococcal Vaccination: No Review Of Systems Review Of Systems: ROS cannot be obtained secondary to pt's inabilty to answer questions. Physical Exam - Physical Exam Appears: Non-toxic, Other (in acute distress, obtunded, occasionally moaning) Skin: Diaphoretic, Pale Head: Atraumatic, Normacephalic Eye(s): bilateral: Other (roving eye movements) Oral Mucosa: Other (tachy mucous membranes ) Lips: Normal Appearing Neck: Normal ROM, Trachea Midline Lymphatic: No Adenopathy Chest: Symmetrical Cardiovascular: Rhythm Regular, No Murmur, Other (tachycardic ) Respiratory: Normal Breath Sounds, No Wheezing Gastrointestinal/Abdominal: Soft, No Tenderness Back: Normal Inspection, No Muscle Spasm Extremity: Other (non-purposeful movement of the extremities, all moving equally ) Neurological/Psych: No Oriented x3 (non-alert, non-oriented ), Other (occasional tremors noted ) ED Course And Treatment - Laboratory Results Result Diagrams: 10/16/18 18:53 10/16/18 18:53 O2 Sat by Pulse Oximetry: 100 (on RA ) Pulse Ox Interpretation: Normal Critical Care Time - Critical Care Note Total Time (in mins): 30 Documented critical care: time excludes all time spent performing seperately billable procedures. Medical Decision Making Medical Decision Making: Impression: hypoglycemia Progress: Bloodwork, urinalysis ordered and reviewed. Dextrose IV, Zofran IV and IV Fluids given. Pt became alert and interactive after D50. 10p While in ER mentals status normalized, he has eaten full tray, and is stable for discharge. Disposition - Disposition Referrals: Jose Ramon So MD [Non-Staff] - (FOLLOWUP WITH YOUR DOCTOR TOMORROW) Disposition: HOME/ ROUTINE Disposition Time: 21:00 Condition: IMPROVED Additional Instructions: STOP TAKING YOUR INSULIN AND JUST STICK TO A STRICT DIABETIC DIET SEE YOUR DOCTOR SOON POSSIBLE FOR REVIEW YOUR DIABETES MEDICATIONS. Instructions: Low Blood Sugar in People With Diabetes, Diabetes and Diet Forms: [facility] (Vietnamese) - Clinical Impression Clinical Impression: Hypoglycemia - Scribe Statement The provider has reviewed the documentation as recorded by the Scribe (Luciana Márquez) Provider Attestation: All medical record entries made by the Scribe were at my direction and personally dictated by me. I have reviewed the chart and agree that the record accurately reflects my personal performance of the history, physical exam, medical decision making, and the department course for this patient. I have also personally directed, reviewed, and agree with the discharge instructions and disposition.
[2018-10-16 19:17] LABS: ALBUMIN 4.1 g/dL (3.5-5.0); ALT/SGPT 15 U/L (21-72); AST/SGOT 21 U/L (17-59); BLOOD UREA NITROGEN 24 mg/dL (9-20); CALCIUM 8.7 mg/dl (8.6-10.4); GFR NON-AFRICAN AMERICAN > 60; LIPASE 14 U/L (23-300)
[2018-10-16 20:00] VITALS: BP 140/70; PULSE 75; RESP 14; TEMP 97.9
[2018-10-16 21:31] VITALS: O2SAT 100
== END 2018-10-16 21:56 | disposition home or self-care (01) ==
LOC: C.ER 18:17
DX: E10.649 Type 1 diabetes mellitus with hypoglycemia without coma (principal); Z79.4 Long term (current) use of insulin
CPT/HCPCS: 80053; 82948; 83690; 83735; 84100; 85025; 96361; 96374; 99284; J7030

== ENCOUNTER 2018-11-09 06:11 | Inpatient (IN) | payer OTHER ==
[2018-11-09 06:12] VITALS: BMI 25.2
--- NOTE | 2018-11-09 07:15 | C.PDOC ---
History Of Present Illness 32 years old male presents to ED for evaluation of altered mental status. Patient was found confused and agitated at home with low blood sugar. As per ems, patient was administered in glucagon in field and became awake, alert and oriented x3. Patient experienced 1 episode of vomiting. Patient now denies fever, chills, abdominal pain, or any other any complaints. Patient has R. ankle/foot chronic woond, last dressing changed 4 days ago, takes antibiotics. Time Seen by Provider: 11/09/18 07:08 Chief Complaint (Nursing): Altered Mental Status History Per: Patient History/Exam Limitations: None Onset/Duration Of Symptoms: Hrs Onset Of Symptoms: <3 Hours Current Symptoms Are (Timing): Better Usual Baseline: Alert Oriented Exacerbating Factor(s): Diabetic Use Of Anticoag/Antiplatelets: Unknown Speech Is: Normal Recent travel outside of the [place]: No Past Medical History Reviewed: Historical Data, Nursing Documentation, Vital Signs Vital Signs: Last Vital Signs Temp 99.5 F 11/09/18 06:21 Pulse 103 H 11/09/18 06:21 Resp 16 11/09/18 06:21 BP 149/96 H 11/09/18 06:21 Pulse Ox 100 11/09/18 06:21 - Medical History PMH: Diabetes (Type 1) - [facility] Procedures DIVISION OF RIGHT LOWER LEG TENDON, PERC ENDO APPROACH (08/26/17) FLUOROSCOPY OF RIGHT FOOT (08/26/17) INSERTION OF EXT FIX INTO R METATARSAL, PERC APPROACH (08/26/17) REPLACEMENT OF R METATARSAL WITH SYNTH SUB, OPEN APPROACH (08/26/17) Family History: States: Diabetes - Social History Hx Tobacco Use: Yes (1 pack per day x10 years) Hx Alcohol Use: Yes Hx Substance Use: Yes - Immunization History Hx Tetanus Toxoid Vaccination: No Hx Influenza Vaccination: No Hx Pneumococcal Vaccination: No Review Of Systems Except As Marked, All Systems Reviewed And Found Negative. Neurological: Positive for: Altered Mental Status Physical Exam - Physical Exam Appears: Non-toxic, No Acute Distress Skin: Normal Color, Warm, Dry Head: Atraumatic, Normacephalic Eye(s): bilateral: Normal Inspection, PERRL, EOMI Oral Mucosa: Moist Neck: Normal ROM, Supple Chest: Symmetrical, No Tenderness Cardiovascular: Rhythm Regular, No Murmur Respiratory: Normal Breath Sounds, No Rales, No Rhonchi, No Wheezing Gastrointestinal/Abdominal: Soft, No Tenderness Extremity: Normal ROM Extremity: Right: Other (R. foot chronic wound, chronic ankle deformity, no redness, wound clean), Bilateral: Atraumatic, Normal Color And Temperature, Normal ROM Pulses: Left Radial: Normal, Right Radial: Normal Neurological/Psych: Oriented x3, Normal Speech, Normal Motor, Normal Sensation, Normal Reflexes, Other (No focal deficits ) Gait: Steady ED Course And Treatment - Laboratory Results Result Diagrams: 11/09/18 07:40 11/09/18 07:40 O2 Sat by Pulse Oximetry: 100 (RA) Pulse Ox Interpretation: Normal Reevaluation Time: 08:35 Reassessment Condition: Improved (Blood glucose stable, awake, alert oriented x 3) Medical Decision Making Medical Decision Making: Plan: * Blood work Progress: 11:58: Spoke with hospitalist economic research assistant () which accepted patient for telemetry admission. Requested abdominal CT and CT head. Patient remains hypoglycemic. Will admit. Disposition Discussed With DrLizeth: Ethel Shepard Counseled Patient/Family Regarding: Studies Performed, Diagnosis, Need For Followup - Disposition Disposition: HOSPITALIZED Disposition Time: 12:05 Condition: STABLE Additional Instructions: Follow up with wound care as directed, continue antibiotics. Check blood glucose every 4- 6 h today Instructions: Low Blood Sugar in People With Diabetes Forms: [facility] (North Korean), General Discharge Instructions - POA Location Of Wound: Right foot - Clinical Impression Clinical Impression: Hypoglycemia - Scribe Statement The provider has reviewed the documentation as recorded by the Scribe Provider Attestation: Hubert Paul All medical record entries made by the Scribe were at my direction and personally dictated by me. I have reviewed the chart and agree that the record accurately reflects my personal performance of the history, physical exam, medical decision making, and the department course for this patient. I have also personally directed, reviewed, and agree with the discharge instructions and disposition.
[2018-11-09 07:44] LABS: BASO % 0.6 % (0.0-2.0); EOS # 0.3 K/uL (0.0-0.7); EOS % 6.9 % (0.0-4.0); HEMOGLOBIN 12.5 g/dL (12.0-18.0); LYMPH # 3.1 K/uL (1.0-4.3); LYMPH % 64.2 % (20.0-40.0); MEAN CELL VOLUME 88.3 fL (80.0-94.0); MEAN CORPUSCULAR HEMOGLOBIN 28.9 pg (27.0-31.0); MEAN CORPUSCULAR HGB CONC 32.7 g/dL (33.0-37.0); MEAN PLATELET VOLUME 8.6 fL (7.2-11.7); MONO # 0.5 K/uL (0.0-0.8); MONO % 11.2 % (0.0-10.0); NEUT # 0.8 K/uL (1.8-7.0); NEUT % 17.1 % (50.0-75.0); PLATELET COUNT 390 K/uL (130-400); RBC 4.32 Mil/uL (4.40-5.90); RED CELL DISTRIBUTION WIDTH 16.2 % (11.5-14.5); WHITE BLOOD COUNT 4.8 K/uL (4.8-10.8)
[2018-11-09 08:05] LABS: ALBUMIN 4.2 g/dL (3.5-5.0); ALT/SGPT 7 U/L (21-72); AST/SGOT 21 U/L (17-59); BLOOD UREA NITROGEN 23 mg/dL (9-20); CALCIUM 9.1 mg/dl (8.6-10.4); GFR NON-AFRICAN AMERICAN > 60
[2018-11-09 08:16] LABS: BANDS 1 % (0-2); EOSINOPHIL 5 % (0-4); LYMPHOCYTE 64 % (20-40); MONOCYTE 11 % (0-10); NEUTROPHIL 12 % (50-75); REACTIVE LYMPHOCYTES 7 % (0-0); TOTAL CELLS COUNTED 100
[2018-11-09 08:17] LABS: ANISOCYTOSIS SLIGHT; PLATELET ESTIMATE NORMAL (NORMAL)
[2018-11-09 08:18] LABS: LARGE PLATELETS PRESENT
[2018-11-09 08:19] LABS: HYPOCHROMIC SLIGHT
[2018-11-09] MEDS ORDERED: Dextrose 50% SYRINGE Inj (50 ml) IV STA (10:15)
[2018-11-09] MEDS ORDERED: Dextrose 50% SYRINGE Inj (50 ml) ONE (10:20)
[2018-11-09] MEDS ORDERED: Iohexol 240 (50 ml) PO ONE (12:00)
[2018-11-09] MEDS ORDERED: Dextrose 5%/0.9% NS 1,000 ML IV SCH (12:00)
[2018-11-09] MEDS ORDERED: Iohexol 240 (50 ml) ONE (12:22)
[2018-11-09] MEDS ORDERED: Dextrose 5%/0.9% NS 1,000 ML IV ONE (12:22)
--- NOTE | 2018-11-09 13:39 | CP.PCM.HP ---
<Jason Dickerson - Last Filed: 11/09/18 15:30> History of Present Illness - History of Present Illness History of Present Illness: PGY1 Medicine History and Physical Exam Note for Dr. Drea Otero is a 32-year-old male with PMH of Diabetes (diagnosed at age 20) who presents to ED for evaluation of altered mental status. Patient was found confused and agitated at home with low blood sugar. As per ems, patient was administered in glucagon in field and became awake, alert and oriented x3. Per Patient, his blood glucose was about 400 yesterday evening. Patient states he subsequently took 15 of Basaglar and 15 Novolin 70/30 at the same time at 21:00. Patient states he did not have an appetite, so he states that he did not eat before going to bed. Patient woke up at about 5:30AM with nausea and had 1 episode of vomitus (non-bloody). Patient admits that this occurs often, and states that he thinks it might be because he has lost his appetite lately, but he continues to take his insulin regardless of his food intake. Patient currently denies fever, chills, chest pain, abdominal pain, back pain, diarrhea, headache, blurred vision, dizziness, numbness/tingling, and/or weakness. Of note, Patient has R. ankle/foot chronic wound, last dressing changed [address] Menjivar's clinic. PMH: Type 1 Diabetes Mellitus, PSH: Charcot reconstructive surgery of right foot Social history: Admits to smoking 1 ppd for over ten years, admits to social marijuana use, denies alcohol use Family History: Denies Allergies: Denies Medications: - Novolin 70/30 10 units before each meal - Basaglar (glargine) 15 units in the AM and PM PMD: Dr. So Pharmacy: [facility] Present on Admission - Present on Admission Any Indicators Present on Admission: Yes History of Uncontrolled Diabetes: Yes Urinary Catheter: No Decubitus Ulcer Present: No Review of Systems - Constitutional Constitutional: Anorexia, Excessive Sweating. absent: Fever, Headache, Weakness - EENT Eyes: absent: Blurred Vision, Change in Vision Nose/Mouth/Throat: absent: Nasal Congestion - Cardiovascular Cardiovascular: absent: Chest Pain, Edema, Lightheadedness - Respiratory Respiratory: absent: Cough, Dyspnea, Hemoptysis - Gastrointestinal Gastrointestinal: Abdominal Pain, Vomiting. absent: Dysphagia, Heartburn, Nausea - Genitourinary Genitourinary: absent: Urinary Frequency - Musculoskeletal Musculoskeletal: absent: Back Pain, Muscle Weakness, Numbness, Tingling - Integumentary Integumentary: Non-Healing Lesions (right foot). absent: New Lesions - Neurological Neurological: absent: Burning Sensations, Disequilibrium, Dizziness, Numbness, Focal Weakness, Headaches, Syncope, Vertigo, Weakness Past Patient History - Infectious Disease Hx of Infectious Diseases: None - Past Medical History & Family History Past Medical History?: Yes - Past Social History Smoking Status: Light Smoker < 10 Cigarettes Daily - PULMONARY Hx Respiratory Disorders: No - NEUROLOGICAL Hx Neurological Disorder: No - HEENT Hx HEENT Problems: No - RENAL Hx Chronic Kidney Disease: No - ENDOCRINE/METABOLIC Hx Endocrine Disorders: Yes Hx Diabetes Mellitus Type 1: Yes - HEMATOLOGICAL/ONCOLOGICAL Hx Blood Disorders: No - INTEGUMENTARY Hx Dermatological Problems: Yes - MUSCULOSKELETAL/RHEUMATOLOGICAL Hx Musculoskeletal Disorders: Yes Hx Falls: Yes - GASTROINTESTINAL Hx Gastrointestinal Disorders: Yes Hx Diarrhea: Yes - GENITOURINARY/GYNECOLOGICAL Hx Genitourinary Disorders: No - PSYCHIATRIC Hx Substance Use: Yes - SURGICAL HISTORY Hx Surgeries: Yes Other/Comment: Right foot debridement, infection - ANESTHESIA Hx Anesthesia: Yes Hx Anesthesia Reactions: No Meds Allergies/Adverse Reactions: Allergies Allergy/AdvReac Type Severity Reaction Status Date / Time No Known Allergies Allergy Verified 11/09/18 06:27 Physical Exam - Constitutional Appears: Non-toxic, No Acute Distress - Head Exam Head Exam: ATRAUMATIC, NORMAL INSPECTION, NORMOCEPHALIC - Eye Exam Eye Exam: Normal appearance, PERRL - ENT Exam ENT Exam: Mucous Membranes Dry - Neck Exam Neck exam: Positive for: Normal Inspection - Respiratory Exam Respiratory Exam: Clear to Auscultation Bilateral, NORMAL BREATHING PATTERN. absent: Chest Wall Tenderness, Rhonchi, Wheezes, Respiratory Distress - Cardiovascular Exam Cardiovascular Exam: REGULAR RHYTHM, +S1, +S2. absent: Bradycardia, Tachycardia, Diastolic murmur, Systolic Murmur - GI/Abdominal Exam GI & Abdominal Exam: Normal Bowel Sounds, Soft. absent: Distended, Guarding, Rebound, Rigid, Tenderness - Extremities Exam Extremities exam: Positive for: full ROM, normal capillary refill, pedal pulses present. Negative for: normal inspection, pedal edema, tenderness Additional comments: Sensation in tact in bilateral feet. R foot/ankle with dressing: Toes exposed. No gangrene, black/purple coloration. No blood. No oozing. No obvious ulcerations. - Back Exam Back exam: NORMAL INSPECTION - Neurological Exam Neurological exam: Alert, CN II-XII Intact, Oriented x3, Reflexes Normal - Psychiatric Exam Psychiatric exam: Normal Affect, Normal Mood - Skin Skin Exam: Dry, Normal Color, Warm - Additional Findings Additional findings: scattered hyperpigmented lesions on arms and legs bilaterally. No ulcerations. No open wounds. No bleeding. No excoriation. Results - Vital Signs Recent Vital Signs: Last Vital Signs Temp 97.9 F 11/09/18 13:16 Pulse 86 11/09/18 13:16 Resp 18 11/09/18 13:16 BP 113/67 11/09/18 13:16 Pulse Ox 100 11/09/18 13:16 - Labs Result Diagrams: 11/09/18 07:40 11/09/18 07:40 Labs: Laboratory Results - last 24 hr 11/09/18 11/09/18 11/09/18 06:21 07:40 07:40 WBC 4.8 RBC 4.32 L Hgb 12.5 Hct 38.1 MCV 88.3 MCH 28.9 MCHC 32.7 L RDW 16.2 H Plt Count 390 MPV 8.6 Neut % (Auto) 17.1 L Lymph % (Auto) 64.2 H [place] % (Auto) 11.2 H Eos % (Auto) 6.9 H Baso % (Auto) 0.6 Neut # (Auto) 0.8 L Lymph # (Auto) 3.1 [place] # (Auto) 0.5 Eos # (Auto) 0.3 Baso # (Auto) 0.0 Neutrophils % (Manual) 12 L Band Neutrophils % 1 Lymphocytes % (Manual) 64 H Reactive Lymphs % 7 H Monocytes % (Manual) 11 H Eosinophils % (Manual) 5 H Platelet Estimate Normal Large Platelets Present Hypochromasia (manual) Slight Anisocytosis (manual) Slight Sodium 140 Potassium 4.1 Chloride 104 Carbon Dioxide 27 Anion Gap 14 BUN 23 H Creatinine 1.0 Est GFR ( Amer) > 60 Est GFR (Non-Af Amer) > 60 POC Glucose (mg/dL) 91 Random Glucose 94 D Calcium 9.1 Total Bilirubin 0.2 AST 21 ALT 7 L D Alkaline Phosphatase 138 H Total Protein 8.2 Albumin 4.2 Globulin 4.0 H Albumin/Globulin Ratio 1.0 11/09/18 11/09/18 11/09/18 08:05 10:12 10:15 WBC RBC Hgb Hct MCV MCH MCHC RDW Plt Count MPV Neut % (Auto) Lymph % (Auto) [place] % (Auto) Eos % (Auto) Baso % (Auto) Neut # (Auto) Lymph # (Auto) [place] # (Auto) Eos # (Auto) Baso # (Auto) Neutrophils % (Manual) Band Neutrophils % Lymphocytes % (Manual) Reactive Lymphs % Monocytes % (Manual) Eosinophils % (Manual) Platelet Estimate Large Platelets Hypochromasia (manual) Anisocytosis (manual) Sodium Potassium Chloride Carbon Dioxide Anion Gap BUN Creatinine Est GFR ( Amer) Est GFR (Non-Af Amer) POC Glucose (mg/dL) 126 H 23 L* 23 L* Random Glucose Calcium Total Bilirubin AST ALT Alkaline Phosphatase Total Protein Albumin Globulin Albumin/Globulin Ratio 11/09/18 11/09/18 11:18 12:27 WBC RBC Hgb Hct MCV MCH MCHC RDW Plt Count MPV Neut % (Auto) Lymph % (Auto) [place] % (Auto) Eos % (Auto) Baso % (Auto) Neut # (Auto) Lymph # (Auto) [place] # (Auto) Eos # (Auto) Baso # (Auto) Neutrophils % (Manual) Band Neutrophils % Lymphocytes % (Manual) Reactive Lymphs % Monocytes % (Manual) Eosinophils % (Manual) Platelet Estimate Large Platelets Hypochromasia (manual) Anisocytosis (manual) Sodium Potassium Chloride Carbon Dioxide Anion Gap BUN Creatinine Est GFR ( Amer) Est GFR (Non-Af Amer) POC Glucose (mg/dL) 77 85 Random Glucose Calcium Total Bilirubin AST ALT Alkaline Phosphatase Total Protein Albumin Globulin Albumin/Globulin Ratio Assessment & Plan - Assessment and Plan (Free Text) Assessment: Recurrent Hypoglycemia likely Secondary to Inconsistent Insulin Use/Satiety - Patient AMS at home found by family - CT Head obtained; follow-up report - F/U CT Abdomen/Pelvis with PO and IV contrast to rule out insulinoma / neuroendocrine tumor - F/U Baseline EKG - Hypoglycemic protocol - Diet: healthy heart - PT/OT Diabetes - Unknown type 1 or type 2 or both - Check C-Peptide, 1A2A, ENZO-65 AB, Insulin autoantibody, IA-2 antibody - F/U Hgb A1c - Discontinued: fluids - Forensic Sergeant referral (Patient diabetic) - elementary 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 Menjivar) consulted; recommendations appreciated - F/U ankle and foot x-rays PPx: - DVT: SCD bilaterally - GI: not indicated at this time Patient seen and case discussed in detail with Dr. Drea Dickerson PGY1 <Ethel Shepard V - Last Filed: 11/09/18 17:48> Results - Vital Signs Recent Vital Signs: Last Vital Signs Temp 98 F 11/09/18 15:56 Pulse 68 11/09/18 15:56 Resp 18 11/09/18 15:56 BP 114/74 11/09/18 15:56 Pulse Ox 98 11/09/18 15:56 - Labs Result Diagrams: 11/09/18 07:40 11/09/18 07:40 Labs: Laboratory Results - last 24 hr 11/09/18 11/09/18 11/09/18 06:21 07:40 07:40 WBC 4.8 RBC 4.32 L Hgb 12.5 Hct 38.1 MCV 88.3 MCH 28.9 MCHC 32.7 L RDW 16.2 H Plt Count 390 MPV 8.6 Neut % (Auto) 17.1 L Lymph % (Auto) 64.2 H [place] % (Auto) 11.2 H Eos % (Auto) 6.9 H Baso % (Auto) 0.6 Neut # (Auto) 0.8 L Lymph # (Auto) 3.1 [place] # (Auto) 0.5 Eos # (Auto) 0.3 Baso # (Auto) 0.0 Neutrophils % (Manual) 12 L Band Neutrophils % 1 Lymphocytes % (Manual) 64 H Reactive Lymphs % 7 H Monocytes % (Manual) 11 H Eosinophils % (Manual) 5 H Platelet Estimate Normal Large Platelets Present Hypochromasia (manual) Slight Anisocytosis (manual) Slight Sodium 140 Potassium 4.1 Chloride 104 Carbon Dioxide 27 Anion Gap 14 BUN 23 H Creatinine 1.0 Est GFR ( Amer) > 60 Est GFR (Non-Af Amer) > 60 POC Glucose (mg/dL) 91 Random Glucose 94 D Calcium 9.1 Total Bilirubin 0.2 AST 21 ALT 7 L D Alkaline Phosphatase 138 H Total Protein 8.2 Albumin 4.2 Globulin 4.0 H Albumin/Globulin Ratio 1.0 11/09/18 11/09/18 11/09/18 08:05 10:12 10:15 WBC RBC Hgb Hct MCV MCH MCHC RDW Plt Count MPV Neut % (Auto) Lymph % (Auto) [place] % (Auto) Eos % (Auto) Baso % (Auto) Neut # (Auto) Lymph # (Auto) [place] # (Auto) Eos # (Auto) Baso # (Auto) Neutrophils % (Manual) Band Neutrophils % Lymphocytes % (Manual) Reactive Lymphs % Monocytes % (Manual) Eosinophils % (Manual) Platelet Estimate Large Platelets Hypochromasia (manual) Anisocytosis (manual) Sodium Potassium Chloride Carbon Dioxide Anion Gap BUN Creatinine Est GFR ( Amer) Est GFR (Non-Af Amer) POC Glucose (mg/dL) 126 H 23 L* 23 L* Random Glucose Calcium Total Bilirubin AST ALT Alkaline Phosphatase Total Protein Albumin Globulin Albumin/Globulin Ratio 11/09/18 11/09/18 11:18 12:27 WBC RBC Hgb Hct MCV MCH MCHC RDW Plt Count MPV Neut % (Auto) Lymph % (Auto) [place] % (Auto) Eos % (Auto) Baso % (Auto) Neut # (Auto) Lymph # (Auto) [place] # (Auto) Eos # (Auto) Baso # (Auto) Neutrophils % (Manual) Band Neutrophils % Lymphocytes % (Manual) Reactive Lymphs % Monocytes % (Manual) Eosinophils % (Manual) Platelet Estimate Large Platelets Hypochromasia (manual) Anisocytosis (manual) Sodium Potassium Chloride Carbon Dioxide Anion Gap BUN Creatinine Est GFR ( Amer) Est GFR (Non-Af Amer) POC Glucose (mg/dL) 77 85 Random Glucose Calcium Total Bilirubin AST ALT Alkaline Phosphatase Total Protein Albumin Globulin Albumin/Globulin Ratio Attending/Attestation - Attestation I have personally seen and examined this patient.: Yes I have fully participated in the care of the patient.: Yes I have reviewed all pertinent clinical information: Yes Notes (Text): Patient seen, examined case discussed with biomedical equipment specialist. This is a 33-year-old male past medical history including sarcoid scheduled sees Dr. Menjivar as outpatient, history of diabetes diagnosed at age 19 who comes in with following noted altered mental status by family noted hypoglycemia and in spite of amp of D50 in the emergency room became mildly altered as well per discussion with the ED doc. Patient did not receive insulin today in the emerge ncy room. I did speak with patient today. He reports he last used his insulin about 9 PM yesterday used in the past o'clock 15 units as well as his pre-meal NovoLog 70 3015 units as well a little bit of rice and a vegetable but reported to he did not eat too much because he feels full right away. He does reports his weight fluctuates up and down. He also reports that when his initially diagnosed with diabetes he is to be on a pill and then reports he used to be on insulin. It is unclear if patient is truly a type I diabetic or if he is type II with combination of pill and insulin. Patient was placed by the emergency room on a D5 containing IV fluid. Patient ordered for CT head and CT abdomen pelvis to rule out other occult etiologies for hypoglycemia. Head CT did return showing unremarkable. Pending official read of CT abdomen pelvis. Patient has had a prior CT in October 2017 noted for diminutive pancreas. When asked patient about his maintenance for his diabetes. He does not do a sugar diary. He reports his sugars vary but cannot state specified numbers. He does report he does feel off when his sugars go above 200. He reports he takes the Metformin, NovoLog 70 3015 units with each meal and the bicycle R 15 units at dinner. When asked him how many units compared to his carbs he is unable to tell me that information. Is also likely he is doing his annual screening exams for his eyes. He does see as outpatient with Dr. Menjivar for his Charcot joint. 1. Recurrent hypoglycemia Please note patient has had multiple emergency room visits in since July at least each visit for hypoglycemia. No workup noted. CT head ordered no acute findings noted. CT abdomen pelvis p.o. and IV contrast ordered awaiting official reading Accu-Cheks with meals NovoLog sliding scale Dietitian referral elementary educator Patient instructed that he must do a sugar diary at least 3 times prior to meals as well as once before dinnertime I did advise him that he should not take his pre-meal at dinner and his long- acting so close together which is probably the reason why he became so hypoglycemic. I did explain to him by the symptomatology of hypoglycemia includes but not limited sweats nausea vomiting as well as got for bed, which we would like to prevent. I did indicate to him part of his follow-up with his PMD is to make a sugar diary because it will help to adjust his insulin for the long-term. Patient is ordered for a C-peptide for tomorrow morning. Hypoglycemic protocol 2. Early satiety Follow-up CT abdomen pelvis p.o. and IV contrast to rule out occult pathology 3. History of Charcot foot joint Podiatry consult to follow-up 4. Prophylactic measure SCDs while resting patient is normally amatory Disposition: I believe this point is CTs of occult pathology and patient received proper education about his diabetic management in light of his recurrent ED visits and from no to hypoglycemia he should be potential discharge for tomorrow.
--- NOTE | 2018-11-09 14:07 | CP.PCM.CON ---
History of Present Illness - History of Present Illness History of Present Illness: Podiatry Consult- Dr. Menjivar 33 y/o male with PMHx of DM seen at bedside today for right ankle and foot wounds. He is known to Dr. Menjivar's service but admits he has not followed up for wound care in 2-3 months. States he has not been seeing anyone for his wounds. States his blood sugar has not been under control. Says he takes insulin but doesn't always eat meals and his sugars get low. Denies any pain at present to the lower extremities. Admits to occasional tingling but denies burning or numbness. Denies F/C/N/V/CP/SOB at present PSH: Charcot reconstructive surgery of right foot SocHx: 1 pack cigs/day x 10 years, social marijuana use, denies EtOH use Family History: Denies All: NKDA Review of Systems - Review of Systems All systems: reviewed and no additional remarkable complaints except (per HPI) Past Patient History - Infectious Disease Hx of Infectious Diseases: None - Past Medical History & Family History Past Medical History?: Yes - Past Social History Smoking Status: Light Smoker < 10 Cigarettes Daily - CARDIAC Hx Cardiac Disorders: No - PULMONARY Hx Respiratory Disorders: No - NEUROLOGICAL Hx Neurological Disorder: No - HEENT Hx HEENT Problems: No - RENAL Hx Chronic Kidney Disease: No - ENDOCRINE/METABOLIC Hx Endocrine Disorders: Yes Hx Diabetes Mellitus Type 1: Yes (Taking insulin @ home) - HEMATOLOGICAL/ONCOLOGICAL Hx Blood Disorders: No - INTEGUMENTARY Hx Dermatological Problems: Yes Other/Comment: Right outer ankle chronic diabetic wound w/ dsg in place - MUSCULOSKELETAL/RHEUMATOLOGICAL Hx Falls: No - GASTROINTESTINAL Hx Gastrointestinal Disorders: Yes Hx Diarrhea: Yes - GENITOURINARY/GYNECOLOGICAL Hx Genitourinary Disorders: No - PSYCHIATRIC Hx Psychophysiologic Disorder: Yes Hx Substance Use: Yes (Alcohol "sometimes") - SURGICAL HISTORY Hx Surgeries: Yes Other/Comment: Right foot debridement, infection - ANESTHESIA Hx Anesthesia: Yes Hx Anesthesia Reactions: No Hx Malignant Hyperthermia: No Has any member of the family had a problem w/ anesthesia?: No Meds Allergies/Adverse Reactions: Allergies Allergy/AdvReac Type Severity Reaction Status Date / Time No Known Allergies Allergy Verified 11/09/18 06:27 - Medications Medications: Current Medications Dextrose/Sodium Chloride (Dextrose 5%/0.9% Ns 1000 Ml) 1,000 mls @ 100 mls/hr IV .Q10H JUVE Last Admin: 11/09/18 12:36 Dose: 100 mls/hr Physical Exam - Constitutional Appears: Well, Non-toxic, No Acute Distress - Extremities Exam Additional comments: Right lower extremity focused: Vasc: DP/PT pulses palpable 2/4. No pedal edema noted. Temperature gradient warm to warm. CFT < 3 sec to all digits Ortho: Charcot deformity noted to right foot and ankle with pes planus deformity and mild plantar cuboid subluxation noted. Limited ROM noted to STJ. ANkle joint ROM is WNL on active and passive assessment Neuro: protective sensation slightly diminished Derm: Open ulceration to anteromedial ankle measuring approx 2cm x 1cm x 0.1cm with fibrogranular wound base, no drainage, no purulence, no malodor, no fluctuance, no vania wound erythema. Additional ulceration approx 0.5cm x 0.4cm x 0.1cm noted to lateral midfoot with fibrotic wound base, no fluctuance, no vania wound erythema, no malodor, no drainage - Neurological Exam Neurological exam: Alert, Oriented x3 - Psychiatric Exam Psychiatric exam: Normal Affect, Normal Mood Results - Vital Signs Recent Vital Signs: Last Vital Signs Temp 97.9 F 11/09/18 13:16 Pulse 86 11/09/18 13:16 Resp 18 11/09/18 13:16 BP 113/67 11/09/18 13:16 Pulse Ox 100 11/09/18 13:16 - Labs Result Diagrams: 11/09/18 07:40 11/09/18 07:40 Labs: Laboratory Results - last 24 hr 11/09/18 11/09/18 11/09/18 06:21 07:40 07:40 WBC 4.8 RBC 4.32 L Hgb 12.5 Hct 38.1 MCV 88.3 MCH 28.9 MCHC 32.7 L RDW 16.2 H Plt Count 390 MPV 8.6 Neut % (Auto) 17.1 L Lymph % (Auto) 64.2 H [place] % (Auto) 11.2 H Eos % (Auto) 6.9 H Baso % (Auto) 0.6 Neut # (Auto) 0.8 L Lymph # (Auto) 3.1 [place] # (Auto) 0.5 Eos # (Auto) 0.3 Baso # (Auto) 0.0 Neutrophils % (Manual) 12 L Band Neutrophils % 1 Lymphocytes % (Manual) 64 H Reactive Lymphs % 7 H Monocytes % (Manual) 11 H Eosinophils % (Manual) 5 H Platelet Estimate Normal Large Platelets Present Hypochromasia (manual) Slight Anisocytosis (manual) Slight Sodium 140 Potassium 4.1 Chloride 104 Carbon Dioxide 27 Anion Gap 14 BUN 23 H Creatinine 1.0 Est GFR ( Amer) > 60 Est GFR (Non-Af Amer) > 60 POC Glucose (mg/dL) 91 Random Glucose 94 D Calcium 9.1 Total Bilirubin 0.2 AST 21 ALT 7 L D Alkaline Phosphatase 138 H Total Protein 8.2 Albumin 4.2 Globulin 4.0 H Albumin/Globulin Ratio 1.0 11/09/18 11/09/18 11/09/18 08:05 10:12 10:15 WBC RBC Hgb Hct MCV MCH MCHC RDW Plt Count MPV Neut % (Auto) Lymph % (Auto) [place] % (Auto) Eos % (Auto) Baso % (Auto) Neut # (Auto) Lymph # (Auto) [place] # (Auto) Eos # (Auto) Baso # (Auto) Neutrophils % (Manual) Band Neutrophils % Lymphocytes % (Manual) Reactive Lymphs % Monocytes % (Manual) Eosinophils % (Manual) Platelet Estimate Large Platelets Hypochromasia (manual) Anisocytosis (manual) Sodium Potassium Chloride Carbon Dioxide Anion Gap BUN Creatinine Est GFR ( Amer) Est GFR (Non-Af Amer) POC Glucose (mg/dL) 126 H 23 L* 23 L* Random Glucose Calcium Total Bilirubin AST ALT Alkaline Phosphatase Total Protein Albumin Globulin Albumin/Globulin Ratio 11/09/18 11/09/18 11:18 12:27 WBC RBC Hgb Hct MCV MCH MCHC RDW Plt Count MPV Neut % (Auto) Lymph % (Auto) [place] % (Auto) Eos % (Auto) Baso % (Auto) Neut # (Auto) Lymph # (Auto) [place] # (Auto) Eos # (Auto) Baso # (Auto) Neutrophils % (Manual) Band Neutrophils % Lymphocytes % (Manual) Reactive Lymphs % Monocytes % (Manual) Eosinophils % (Manual) Platelet Estimate Large Platelets Hypochromasia (manual) Anisocytosis (manual) Sodium Potassium Chloride Carbon Dioxide Anion Gap BUN Creatinine Est GFR ( Amer) Est GFR (Non-Af Amer) POC Glucose (mg/dL) 77 85 Random Glucose Calcium Total Bilirubin AST ALT Alkaline Phosphatase Total Protein Albumin Globulin Albumin/Globulin Ratio Assessment & Plan - Assessment and Plan (Free Text) Assessment: 33 y/o diabetic male with right foot and ankle diabetic ulcerations with Charcot neuroarthropathy Plan Patient seen and evaluated at bedside Discussed with Dr. Menjivar R foot and ankle xrays ordered - Charcot deformity noted through foot and ankle with collapse at subtalar joint, pes planus deformity, diffuse degeneration noted R foot and ankle ulcers cleaned with saline, dressed with medihoney DSD No surgical intervention warranted at this time Will continue to follow
[2018-11-09] MEDS ORDERED: Dextrose 50% SYRINGE Inj (50 ml) IV PRN (14:32)
[2018-11-09] MEDS ORDERED: Glucagon Recombinant 1 mg Inj IM PRN (14:32)
[2018-11-09] MEDS ORDERED: Iodixanol 320 MG/ML 100 ML BOTTLE IV ONE (15:13)
--- NOTE | 2018-11-09 16:02 | CT ---
Date of service: 11/09/2018 PROCEDURE: CT HEAD WITHOUT CONTRAST. HISTORY: ams COMPARISON: None available. TECHNIQUE: Axial computed tomography images were obtained through the head/brain without intravenous contrast. Radiation dose: Total exam DLP = 1110.2 mGy-cm. This CT exam was performed using one or more of the following dose reduction techniques: Automated exposure control, adjustment of the mA and/or kV according to patient size, and/or use of iterative reconstruction technique. FINDINGS: HEMORRHAGE: No intracranial hemorrhage. BRAIN: No mass effect or edema. No atrophy or chronic microvascular ischemic changes. VENTRICLES: Unremarkable. No hydrocephalus. CALVARIUM: Unremarkable. PARANASAL SINUSES: Multifocal ethmoid sinusitis. MASTOID AIR CELLS: Unremarkable as visualized. No inflammatory changes. OTHER FINDINGS: None. IMPRESSION: Unremarkable unenhanced head CT.
--- NOTE | 2018-11-09 16:10 | RAD ---
Date of service: 11/09/2018 PROCEDURE: Right Ankle Radiographs. HISTORY: right ankle chronic wound, Charcot deformity COMPARISON: Right ankle radiographs 08/26/2017. FINDINGS: BONES: A Charcot joint deformity is appreciated primarily involving the subtalar joint and talar tarsal as well as calcaneal tarsal articulations and all the tarsal tarsal articulations as well. Tarsal metatarsal articulations are also grossly degenerated. Given this milieu, osteomyelitis is quite difficult to exclude if not a possible radiographic means. Even MRI without contrast may be have difficulty excluding osteomyelitis. The ankle is collapsed secondarily with pes planus apparent. Prior right ankle radiographs are nondiagnostic given the presence of extensive external fixation hardware obscuring bony and soft tissue anatomy throughout the right ankle. SOFT TISSUES: Mild soft tissue edema surrounds the midfoot and hindfoot anatomy. OTHER FINDINGS: None. IMPRESSION: Charcot joint throughout the ankle and midfoot/hind foot articulations is identified which precludes ability to evaluate for potential osteomyelitis radiographically. In fact, it may be impossible to exclude potential osteomyelitis by any imaging means and further clinical correlation is recommended.
--- NOTE | 2018-11-09 16:15 | RAD ---
Date of service: 11/09/2018 PROCEDURE: Right Foot Radiographs. HISTORY: right ankle/foot chronic wound, Charcot foot COMPARISON: Right foot radiographs 02/18/2018. FINDINGS: BONES: Gross deformity from Charcot joint is appreciated at the midfoot/hindfoot which is without significant interval change. Osteomyelitis at the periphery of this defect is not apparent accordingly, although within internal articulations/pseudo articulations the affected midfoot hindfoot joints, it would be difficult to completely exclude. Diffuse osteopenia suggests osteoporosis. Pes planus identified. JOINTS: As above. SOFT TISSUES: Diminished soft tissue edema is seen throughout the right foot. OTHER FINDINGS: None. IMPRESSION: No overt pattern of osteomyelitis in the periphery of the right foot however Charcot joint is identified in which intrinsic joint destruction and disorganization cannot be adequately evaluated for osteomyelitis. Diminished right foot edema appreciated.
[2018-11-09] MEDS: (Novolog) Insulin Aspart, Recombinant 100 u/ml 10 ml vial SC SCH ×2 (17:48→21:24)
--- NOTE | 2018-11-09 17:59 | CT ---
Date of service: 11/09/2018 PROCEDURE: CT Abdomen and Pelvis with contrast HISTORY: hypoglycemia COMPARISON: Abdomen pelvis CT with contrast 10/30/2017. TECHNIQUE: Following oral and intravenous contrast administration, a CT examination of the abdomen and pelvis was performed from the domes of the diaphragms to the symphysis pubis with reformatted datasets provided not only axial but also sagittal and coronal series. Contrast dose: Visipaque 320, 100 cc Radiation dose: Total exam DLP = 636.31 mGy-cm. This CT exam was performed using one or more of the following dose reduction techniques: Automated exposure control, adjustment of the mA and/or kV according to patient size, and/or use of iterative reconstruction technique. FINDINGS: LOWER THORAX: Unremarkable. LIVER: Unremarkable. No gross lesion or ductal dilatation. GALLBLADDER AND BILE DUCTS: Unremarkable. PANCREAS: Unremarkable. No gross lesion or ductal dilatation. SPLEEN: Unremarkable. ADRENALS: Unremarkable. No mass. KIDNEYS AND URETERS: Unremarkable. No hydronephrosis. No solid mass. VASCULATURE: Unremarkable. No aortic aneurysm. No aortic atherosclerotic calcification or mural plaque present. BOWEL: Questionable thickening of the distal esophagus, potentially reflecting esophagitis. The bowel is not obstructed. Thickening the distal rectosigmoid is difficult to exclude due to partial collapse. No ascites or Julieth colic reactive changes associated. APPENDIX: Normal appendix. PERITONEUM: Unremarkable. No free fluid. No free air. LYMPH NODES: Unremarkable. No enlarged lymph nodes. BLADDER: Unremarkable. REPRODUCTIVE: Unremarkable. BONES: No acute fracture. OTHER FINDINGS: Mild bilateral inguinal lymphadenopathy appreciated, however, prior right inguinal fluid collection/phlegmon appears to have resolved. IMPRESSION: 1. Potential distal esophagitis. Clinically correlate. Distal rectosigmoid colitis is questioned though not definite given partial collapse of this segment of colon, the presence of stool in the lumen and lack of transit of oral contrast through this segment. 2. Resolution of prior right inguinal phlegmon/abscess.
[2018-11-10] MEDS ORDERED: (Novolin R) Insulin Human Regular 100 units/ml vial SC STA (05:49)
[2018-11-10] MEDS: (Novolog) Insulin Aspart, Recombinant 100 u/ml 10 ml vial SC SCH ×4 (06:59→21:57)
[2018-11-10 07:44] LABS: BASO % 0.3 % (0.0-2.0); EOS # 0.1 K/uL (0.0-0.7); EOS % 1.3 % (0.0-4.0); HEMOGLOBIN 12.4 g/dL (12.0-18.0); LYMPH # 0.5 K/uL (1.0-4.3); LYMPH % 7.4 % (20.0-40.0); MEAN CELL VOLUME 88.1 fL (80.0-94.0); MEAN CORPUSCULAR HEMOGLOBIN 28.6 pg (27.0-31.0); MEAN CORPUSCULAR HGB CONC 32.4 g/dL (33.0-37.0); MEAN PLATELET VOLUME 8.2 fL (7.2-11.7); MONO # 0.4 K/uL (0.0-0.8); MONO % 5.7 % (0.0-10.0); NEUT # 6.1 K/uL (1.8-7.0); NEUT % 85.3 % (50.0-75.0); PLATELET COUNT 350 K/uL (130-400); RBC 4.33 Mil/uL (4.40-5.90); RED CELL DISTRIBUTION WIDTH 15.9 % (11.5-14.5); WHITE BLOOD COUNT 7.1 K/uL (4.8-10.8)
[2018-11-10 09:00] LABS: EOSINOPHIL 2 % (0-4); LYMPHOCYTE 6 % (20-40); MONOCYTE 8 % (0-10); NEUTROPHIL 84 % (50-75); PLATELET ESTIMATE NORMAL (NORMAL); TOTAL CELLS COUNTED 100
[2018-11-10 09:03] LABS: BLOOD UREA NITROGEN 21 mg/dL (9-20); CALCIUM 8.8 mg/dl (8.6-10.4); GFR NON-AFRICAN AMERICAN > 60
[2018-11-10 09:04] LABS: ALT/SGPT 12 U/L (21-72); AST/SGOT 29 U/L (17-59)
[2018-11-10] MEDS ORDERED: (Novolog) Insulin Aspart, Recombinant 100 u/ml 10 ml vial SC SCH (09:18)
--- NOTE | 2018-11-10 09:23 | CP.PCM.PN ---
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 Says his stomach feels crampy too. Pt complains of sweating all night as well. denies cp sob fc. Pt is non compliant with his meds, understands his status and agrees with plan for education and regimen establishment/ Objective - Vital Signs/Intake and Output Vital Signs (last 24 hours): Temp Pulse Resp BP Pulse Ox 99.1 F 89 20 117/65 97 11/10/18 07:40 11/10/18 07:40 11/10/18 07:40 11/10/18 07:40 11/10/18 07:40 - Medications Medications: Current Medications Dextrose (Dextrose 50% Inj) 0 ml IV STAT PRN; Protocol PRN Reason: Hypoglycemia Protocol Dextrose (Glutose 15) 0 gm PO ONCE PRN; Protocol PRN Reason: Hypoglycemia Protocol Glucagon (Glucagen Diagnostic Kit) 0 mg IM STAT PRN; Protocol PRN Reason: Hypoglycemia Protocol Dextrose (Dextrose 5% In Water 1000 Ml) 1,000 mls @ 0 mls/hr IV .Q0M PRN; Protocol PRN Reason: Hypoglycemia Protocol Insulin Aspart (Novolog) 0 unit SC ACHS JUVE; Protocol - Labs Labs: 11/10/18 07:29 11/10/18 07:29 - Constitutional Appears: Unkempt - Eye Exam Eye Exam: EOMI, Normal appearance - ENT Exam ENT Exam: Mucous Membranes Moist - Neck Exam Neck Exam: absent: Lymphadenopathy - Respiratory Exam Respiratory Exam: Clear to Ausculation Bilateral. absent: Rhonchi, Wheezes - Cardiovascular Exam Cardiovascular Exam: RRR, +S1, +S2 - GI/Abdominal Exam GI & Abdominal Exam: Soft, Hypoactive Bowel Sounds. absent: Distended, Firm, Tenderness, Organomegaly, Rebound - Extremities Exam Additional comments: R foot in dressing sensation and motor intact pulses intact tibial - Neurological Exam Neurological Exam: Awake, CN II-XII Intact, Oriented x3 - Psychiatric Exam Psychiatric exam: Normal Affect, Normal Mood - Skin Skin Exam: Diaphoretic Assessment and Plan - Assessment and Plan (Free Text) Assessment: 33M admitted for uncontrolled hyperglycemia and a charcot joint Recurrent Hypoglycemia likely Secondary to Inconsistent Insulin Use/Satiety - Patient AMS at home found by family - CT Head obtained;Neg - CT Abdomen/Pelvis with PO and IV contrast : possible esophagitis, no neuroendocrine tuomors mentioned - Baseline EKG: NSR - Hypoglycemic protocol - Diet: healthy heart - PT/OT Fevers w/o source -possible asp pna -Rocephin 1g q12 IVPB -Flagyl 500 q8 IVPB -f/u BC and UC -f/u cbc Diabetic Gastroparesis -Reglan 10 IVP stat given @ 9am today -Repeat accucheck @ 10am- give sliding scale high coverage -NS @ 100 -Monitor and maintain Euglycemia -Diet as tolerated Diabetes - Unknown type 1 or type 2 or both - Check C-Peptide, 1A2A, ENZO-65 AB, Insulin autoantibody, IA-2 antibody - Hgb A1c >8 - Disaster Recovery Coordinator referral (Patient diabetic) - breastfeeding educator (poor insight into diabetes management) - Urine Microalbumin in AM - Hypoglycemic protocol - ISS (high coverage) - ACCU checks QAC/HS - Diet: healthy heart Lack of Appetite - CT abdomen/pelvis with PO and IV contrast - Calorie Count History of Charcot joint - Podiatry (Dr. Menjivar) consulted; recommendations appreciated - Charcot joint seen on ankle and foot x-rays PPx: - DVT: SCD bilaterally - GI: not indicated at this time Patient seen and case discussed in detail with Dr. Arnav Márquez DISPO: <Grayson Márquez - Last Filed: 11/10/18 19:16> Objective - Vital Signs/Intake and Output Vital Signs (last 24 hours): Temp Pulse Resp BP Pulse Ox 101.5 F H 106 H 18 110/58 L 97 11/10/18 18:52 11/10/18 16:26 11/10/18 16:26 11/10/18 16:26 11/10/18 16:26 - Medications Medications: Current Medications Acetaminophen (Tylenol 325mg Tab) 650 mg PO Q6 PRN PRN Reason: Fever >100.4 F Last Admin: 11/10/18 18:52 Dose: 650 mg Dextrose (Dextrose 50% Inj) 0 ml IV STAT PRN; Protocol PRN Reason: Hypoglycemia Protocol Dextrose (Glutose 15) 0 gm PO ONCE PRN; Protocol PRN Reason: Hypoglycemia Protocol Glucagon (Glucagen Diagnostic Kit) 0 mg IM STAT PRN; Protocol PRN Reason: Hypoglycemia Protocol Dextrose (Dextrose 5% In Water 1000 Ml) 1,000 mls @ 0 mls/hr IV .Q0M PRN; Protocol PRN Reason: Hypoglycemia Protocol Ceftriaxone Sodium 1 gm/ (Sodium Chloride) 100 mls @ 100 mls/hr IVPB Q12H JUVE; Protocol Last Admin: 11/10/18 18:52 Dose: 100 mls/hr Metronidazole (Flagyl) 500 mg in 100 mls @ 100 mls/hr IVPB Q8H JUVE; Protocol Influenza Virus Vaccine (Flucelvax Quad [id number] Syr) 60 mcg IM .ONCE ONE Stop: 11/11/18 12:01 Insulin Aspart (Novolog) 10 unit SC AC [facility] Last Admin: 11/10/18 17:31 Dose: 10 units Insulin Aspart (Novolog) 0 unit SC ACHS [facility] Last Admin: 11/10/18 17:31 Dose: 5 units Insulin Glargine (Lantus) 24 unit SC HS JUVE - Labs Labs: 11/10/18 07:29 11/10/18 07:29 Attending/Attestation - Attestation I have personally seen and examined this patient.: Yes I have fully participated in the care of the patient.: Yes I have reviewed all pertinent clinical information, including history, physical exam and plan: Yes Notes (Text): 11/10/18 19:13 Patient was seen with resident Dr. Haywood and care of this patient was gone over in detail with him. Please note that patient wanted to sign AMA but it was explained to him in detail, the possibility of Aspiration Pneumonia as well as his uncontrolled blood glucose would be a recipe for disaster/detrimental to his health. Patient decided to stay. Also follow up recommendations from Mold Filler Dr. Navin Toscano. Grayson Márquez D.O.
[2018-11-10] MEDS ORDERED: (Novolin R) Insulin Human Regular 100 units/ml vial SC SCH (11:30)
[2018-11-10] MEDS: metroNIDAZOLE IV 500 mg/100 ml 500 MG/100 ML BAG IVPB SCH (20:15)
[2018-11-10] MEDS ORDERED: (Lantus) Insulin Glargine, Recombinant SC SCH (22:00)
[2018-11-11 01:23] VITALS: RESP 20
[2018-11-11] MEDS: metroNIDAZOLE IV 500 mg/100 ml 500 MG/100 ML BAG IVPB SCH (01:37)
[2018-11-11 06:37] LABS: BASO % 0.5 % (0.0-2.0); EOS % 0.1 % (0.0-4.0); HEMOGLOBIN 11.8 g/dL (12.0-18.0); LYMPH # 1.1 K/uL (1.0-4.3); LYMPH % 17.5 % (20.0-40.0); MEAN CELL VOLUME 86.5 fL (80.0-94.0); MEAN CORPUSCULAR HEMOGLOBIN 27.8 pg (27.0-31.0); MEAN CORPUSCULAR HGB CONC 32.1 g/dL (33.0-37.0); MEAN PLATELET VOLUME 8.1 fL (7.2-11.7); MONO # 0.7 K/uL (0.0-0.8); MONO % 12.2 % (0.0-10.0); NEUT # 4.2 K/uL (1.8-7.0); NEUT % 69.7 % (50.0-75.0); NRBC % 0.1 % (0.0-2.0); RBC 4.25 Mil/uL (4.40-5.90); RED CELL DISTRIBUTION WIDTH 15.8 % (11.5-14.5)
[2018-11-11 06:54] LABS: ALBUMIN 3.9 g/dL (3.5-5.0); CALCIUM 8.7 mg/dl (8.6-10.4)
--- NOTE | 2018-11-11 07:17 | CP.PCM.PN ---
Subjective - Date & Time of Evaluation Date of Evaluation: 11/11/18 Time of Evaluation: 07:17 - Subjective Subjective: HOSPITALIST SERVICE Objective - Vital Signs/Intake and Output Vital Signs (last 24 hours): Temp Pulse Resp BP Pulse Ox 98.6 F 94 H 20 108/69 100 11/10/18 23:15 11/11/18 04:00 11/10/18 23:15 11/10/18 23:15 11/10/18 23:15 - Medications Medications: Current Medications Acetaminophen (Tylenol 325mg Tab) 650 mg PO Q6 PRN PRN Reason: Fever >100.4 F Last Admin: 11/11/18 01:39 Dose: 650 mg Dextrose (Dextrose 50% Inj) 0 ml IV STAT PRN; Protocol PRN Reason: Hypoglycemia Protocol Dextrose (Glutose 15) 0 gm PO ONCE PRN; Protocol PRN Reason: Hypoglycemia Protocol Glucagon (Glucagen Diagnostic Kit) 0 mg IM STAT PRN; Protocol PRN Reason: Hypoglycemia Protocol Dextrose (Dextrose 5% In Water 1000 Ml) 1,000 mls @ 0 mls/hr IV .Q0M PRN; Protocol PRN Reason: Hypoglycemia Protocol Ceftriaxone Sodium 1 gm/ (Sodium Chloride) 100 mls @ 100 mls/hr IVPB Q12H JUVE; Protocol Last Admin: 11/11/18 05:13 Dose: 100 mls/hr Metronidazole (Flagyl) 500 mg in 100 mls @ 100 mls/hr IVPB Q8H JUVE; Protocol Last Admin: 11/11/18 01:37 Dose: 100 mls/hr Influenza Virus Vaccine (Flucelvax Quad [id number] Syr) 60 mcg IM .ONCE ONE Stop: 11/11/18 12:01 Insulin Aspart (Novolog) 10 unit SC AC [facility] Last Admin: 11/10/18 17:31 Dose: 10 units Insulin Aspart (Novolog) 0 unit SC ACHS [facility] Last Admin: 11/10/18 21:57 Dose: Not Given Insulin Glargine (Lantus) 24 unit SC HS [facility] Last Admin: 11/10/18 22:32 Dose: 24 units - Labs Labs: 11/11/18 06:28 11/11/18 06:28
[2018-11-11] MEDS: (Novolog) Insulin Aspart, Recombinant 100 u/ml 10 ml vial SC SCH ×2 (07:30)
--- NOTE | 2018-11-11 09:01 | CON ---
DATE: 11/10/2018 ENDOCRINOLOGY CONSULT ROOM: 663. HISTORY OF PRESENT ILLNESS: This is a 33-year-old male with known history of type 1 insulin-dependent diabetes presenting here with altered mental status and supervening symptomatic hypoglycemia and is now being referred for diabetic evaluation and management. He initially had hyperglycemic accelerations last night and glucose values were over 400 mg/dL and the patient took both Novolin 70/30 of 15 units with Basaglar also at 15 units at bedtime with very minimal oral intake as noted. His glucose levels apparently dropped early this morning and was found by the family to be confused and agitated and combative at home prompting this ER evaluation and subsequent admission. PAST MEDICAL HISTORY: As mentioned above, history of type 1 insulin-dependent diabetes diagnosed at age 20 and this occurred during the combination of Novolin 70/30 taking 10 units t.i.d. before meals and Basaglar taken at 15 units b.i.d. as noted. He is being followed closely by a local tenderizer tender, Dr. So as noted. FAMILY HISTORY: Positive for diabetes and hypertension. SOCIAL HISTORY: The patient admits to smoking a pack a day for over 10 years with recreational marijuana use. PAST SURGICAL HISTORY: He had a reconstructive surgery of this Charcot deformity in the right foot that is actively being followed by Dr. Menjivar as noted for persistent right ankle nonhealing ulceration. REVIEW OF SYSTEMS: Admits to generalized body weakness with episodic bouts of dizziness and lightheadedness worse on the day of admission. No chest pains or palpitations. His oral intake has been variable with nausea, dyspepsia, and episode of vomiting episodes. Also admits to recent marked polyuria, nocturia, and polydipsia. PHYSICAL EXAMINATION: GENERAL: Average-built male in no apparent distress. VITAL SIGNS: Blood pressure 140/80, pulse of 100 beats per minute regular, temperature 98, respirations 20. Height is 5 feet 8 inches, weight is 155 pounds. HEENT: Head normocephalic. Eyes anicteric with pink conjunctivae. Funduscopy is not possible at this time. Ears, nose, and throat otherwise normal. NECK: Supple. Thyroid gland is normal sized. No carotid bruits or any cervical adenopathy. CARDIOPULMONARY: Some adynamic precordium. S1, S2 rapid and regular. LUNGS: Clear to auscultation. ABDOMEN: Flat, soft with passive bowel sounds. EXTREMITIES: No peripheral edema. Pulses are +2 bilaterally. There is a nonhealing ulceration in the heel of the right foot as noted with no active exudate otherwise. LABORATORY DATA: His chemistry showed a BUN of 23, sodium 140, potassium 4.1, chloride 104, CO2 of 27, glucose 94, and creatinine 1 with as his initial chemistries and subsequent glucoses went down to 23 and 77 mg/dL. However, today his glucose levels were over 400 ranging from 449 to 466 mg/dL. ASSESSMENT: This is a 33-year-old male with uncontrolled and decompensated type 1 insulin-dependent diabetes presenting here with extreme subglycemic fluctuations from an initial bout of symptomatic hypoglycemia and associated neuroglycopenic and hyperadrenergic manifestations reversed by glucagon and D50 bolus injections as given. However, today he developed supervening hyperglycemic accelerations with the withholding of the insulin drug combination as previously given and this is expected especially in a type 1 diabetic with no endogenous insulin stores. PLAN OF MANAGEMENT: We will switch him over now to a more physiologic basal and bolus insulin drug combination to be started today as ordered. We will initiate NovoLog given as 10 units t.i.d. before meals to start at dinner time today as ordered. We will also add Lantus given as basal insulin of 24 units subcu at bedtime daily as given. We will titrate incrementally as indicated to optimize metabolic control. We will also modify the coverage still using Novolog insulin to obviate hypoglycemia and detailed orders have been given. We will obtain serial chemistries and supplement accordingly as needed. We will also obtain hemoglobin A1c to confirm his prior glycemic control with baseline thyroid function studies as ordered. We will follow. Esperanza Toscano MD
[2018-11-11 09:03] VITALS: BP 130/75; PULSE 91; TEMP 98.9; O2SAT 98
--- NOTE | 2018-11-11 09:56 | CARD ---
APPROVED REPORT Date of service: 11/09/2018 EKG Measurement Heart [id number] <Conclusion> Normal sinus rhythm Minimal voltage criteria for LVH, may be normal variant ST elevation, probably due to early repolarization Borderline ECG
[2018-11-11] MEDS ORDERED: Influenza Vaccine 60 mcg/0.5 mL SYR (4YR UP) IM ONE (12:00)
[2018-11-11 15:20] LABS: C-PEPTIDE <0.10 ng/mL (0.80-3.85)
--- NOTE | 2018-11-11 20:30 | CP.PCM.PCO ---
Physician Communication Note - Physician Communication Note Physician Communication Note: Please see above
--- NOTE | 2018-11-11 21:20 | CP.PCM.DIS ---
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 11/09/18 14:58 Diabetic Education Referral Routine Comment: Physician Instructions: Reason For Exam: Lack of insight; hospitalizations for low glucose 11/10/18 14:05 Endocrinology Consult Routine Comment: Consulting Provider: Esperanza Toscano Consulting Physician: Esperanza Toscano Reason for Consult: Uncontrolled DM 1. Need help with insulin adjustment Time Spent in preparation of Discharge (in minutes): 45 Hospital Course - Lab Results Lab Results: Micro Results 11/10/18 19:30 Blood Blood Culture - Preliminary NO GROWTH AFTER 24 HOURS 11/10/18 19:00 Blood Blood Culture - Preliminary NO GROWTH AFTER 24 HOURS Most Recent Lab Values WBC 6.0 K/uL (4.8-10.8) 11/11/18 06:28 RBC 4.25 Mil/uL (4.40-5.90) L 11/11/18 06:28 Hgb 11.8 g/dL (12.0-18.0) L 11/11/18 06:28 Hct 36.8 % (35.0-51.0) 11/11/18 06:28 MCV 86.5 fL (80.0-94.0) 11/11/18 06:28 MCH 27.8 pg (27.0-31.0) 11/11/18 06:28 MCHC 32.1 g/dL (33.0-37.0) L 11/11/18 06:28 RDW 15.8 % (11.5-14.5) H 11/11/18 06:28 Plt Count 323 K/uL (130-400) 11/11/18 06:28 MPV 8.1 fL (7.2-11.7) 11/11/18 06:28 Neut % (Auto) 69.7 % (50.0-75.0) 11/11/18 06:28 Lymph % (Auto) 17.5 % (20.0-40.0) L 11/11/18 06:28 Mccone % (Auto) 12.2 % (0.0-10.0) H 11/11/18 06:28 Eos % (Auto) 0.1 % (0.0-4.0) 11/11/18 06:28 Baso % (Auto) 0.5 % (0.0-2.0) 11/11/18 06:28 Neut # (Auto) 4.2 K/uL (1.8-7.0) 11/11/18 06:28 Lymph # (Auto) 1.1 K/uL (1.0-4.3) 11/11/18 06:28 Mccone # (Auto) 0.7 K/uL (0.0-0.8) 11/11/18 06:28 Eos # (Auto) 0.0 K/uL (0.0-0.7) 11/11/18 06:28 Baso # (Auto) 0.0 K/uL (0.0-0.2) 11/11/18 06:28 Neutrophils % (Manual) 84 % (50-75) H 11/10/18 07:29 Band Neutrophils % 1 % (0-2) 11/09/18 07:40 Lymphocytes % (Manual) 6 % (20-40) L 11/10/18 07:29 Reactive Lymphs % 7 % (0-0) H 11/09/18 07:40 Monocytes % (Manual) 8 % (0-10) 11/10/18 07:29 Eosinophils % (Manual) 2 % (0-4) 11/10/18 07:29 Platelet Estimate Normal (NORMAL) 11/10/18 07:29 Large Platelets Present 11/09/18 07:40 Hypochromasia (manual) Slight 11/09/18 07:40 Anisocytosis (manual) Slight 11/09/18 07:40 Sodium 135 mmol/L (132-148) 11/11/18 06:28 Potassium 4.4 mmol/L (3.6-5.2) 11/11/18 06:28 Chloride 99 mmol/L (98-107) 11/11/18 06:28 Carbon Dioxide 27 mmol/L (22-30) 11/11/18 06:28 Anion Gap 14 (10-20) 11/11/18 06:28 BUN 36 mg/dL (9-20) H 11/11/18 06:28 Creatinine 1.7 mg/dL (0.8-1.5) H 11/11/18 06:28 Est GFR ( Amer) 57 11/11/18 06:28 Est GFR (Non-Af Amer) 47 11/11/18 06:28 POC Glucose (mg/dL) 224 mg/dL (65-110) H 11/11/18 06:50 Random Glucose 232 mg/dL (75-110) H D 11/11/18 06:28 Hemoglobin A1c 8.4 % (4.2-6.5) H D 11/10/18 07:29 C-Peptide <0.10 ng/mL (0.80-3.85) L 11/10/18 07:29 Calcium 8.7 mg/dl (8.6-10.4) 11/11/18 06:28 Phosphorus 2.3 mg/dL (2.5-4.5) L 11/10/18 07:29 Magnesium 2.3 mg/dL (1.6-2.3) 11/10/18 07:29 Total Bilirubin 0.2 mg/dL (0.2-1.3) 11/11/18 06:28 AST 20 U/L (17-59) 11/11/18 06:28 ALT 12 U/L (21-72) L 11/11/18 06:28 Alkaline Phosphatase 140 U/L (38-126) H 11/11/18 06:28 Total Protein 7.9 g/dL (6.3-8.3) 11/11/18 06:28 Albumin 3.9 g/dL (3.5-5.0) 11/11/18 06:28 Globulin 4.0 gm/dL (2.2-3.9) H 11/11/18 06:28 Albumin/Globulin Ratio 1.0 (1.0-2.1) 11/11/18 06:28 Anti-IA2 Antibody TNP 11/10/18 07:29 - Hospital Course Hospital Course: Patient is a 32 year old male with PMH of diabetes who presents to ED for evaluation of altered mental status. Patient was found confused and agitated at home with low blood sugar. As per EMS, patient was administered glucagon in field and became AAOx3. Per patient, his blood glucose was about 400 yesterday evening. Patient states he subsequently took 15 of Basaglar and 15 Novolin 70/30 at the same time at 21:00. Patient states that he did not have an appetite so he did not eat before going to bed. Patient woke up at about 5:30 am with nausea and had 1 episode of non-bloody vomitus. Patient admits that this occurs often and states that he thinks it might be because he has lost his appetite lately but continues to take insulin regardless of food intake. He currently denies fever, chills, chest pain, abdominal pain, diarrhea, headache, blurred vision, dizziness, numbness/tingling, and weakness. Of note, patient has right ankle/foot chronic wound with last dressing changed [address] Menjivar's clinic. Upon admission, patient was placed on hypoglycemic protocol and ISS (high coverage). CT abdomen/pelvis showed possible distal esophagitis with no neuroendocrine tumors mentioned. CT head was negative. Ankle and foot x-rays showed Charcot joint throughout the ankle and midfoot/hind foot articulations. EKG shows normal sinus rhythm with minimal voltage criteria for LVH which may be normal variant and ST elevation probably due to early repolarization. Podiatry (Dr. Menjivar) was consulted. Patient was started on Rocephil 1 g q12 IVPB and Flagyl 500 q8 IVPB for fevers without source. Patient was started on Reglan 10 IVP stat and diet as tolerated. Hgb A1c was 8.4 and C-peptide was low. [place] Debeader referral and hematology nurse educator were consulted. Please not that the patient requested to sign out AMA earlier today for the 3rd time. He stated that he was still nauseous and that his symptoms were not improving fast enough. Dr. Grayson Márquez explained to him that he needed to be patient as his issue (diabetic gastroparesis secondary to medication noncompliance) has been long standing and that it could not be expected to be turned around immediately. Medicine Team had requested the help of Diabetic Nurse and she did see the patient. 25 minutes was spent on previous day explaining to the patient the nature of his condition and the treatment plan. Despite explaining to him the dangers of leaving, patient still decided to sign AMA and stated that he was going to go straight to [facility] [place]. Discharge Exam - Head Exam Head Exam: ATRAUMATIC, NORMAL INSPECTION, NORMOCEPHALIC - Additional Findings Additional findings: - Constitutional Appears: Unkempt - Eye Exam Eye Exam: EOMI, Normal appearance - ENT Exam ENT Exam: Mucous Membranes Moist - Neck Exam Neck Exam: absent: Lymphadenopathy - Respiratory Exam Respiratory Exam: Clear to Ausculation Bilateral. absent: Rhonchi, Wheezes - Cardiovascular Exam Cardiovascular Exam: RRR, +S1, +S2 - GI/Abdominal Exam GI & Abdominal Exam: Soft, Hypoactive Bowel Sounds. absent: Distended, Firm, Tenderness, Organomegaly, Rebound - Extremities Exam Additional comments: R foot in dressing sensation and motor intact pulses intact tibial - Neurological Exam Neurological Exam: Awake, CN II-XII Intact, Oriented x3 - Psychiatric Exam Psychiatric exam: Normal Affect, Normal Mood - Skin Skin Exam: Diaphoretic Discharge Plan - Follow Up Plan Condition: STABLE Disposition: AGAINST MEDICAL ADVICE Instructions: Low Blood Sugar in People With Diabetes Additional Instructions: Follow up with wound care as directed, continue antibiotics. Check blood glucose every 4- 6 h today
--- NOTE | 2018-11-12 02:13 | PN ---
DATE: 11/11/2018 ENDOCRINOLOGY FOLLOWUP NOTE LOCATION: Room 663. SUBJECTIVE: This is a 33-year-old male with recent uncontrolled type 1 insulin-dependent diabetes, presenting here with symptomatic hypoglycemia and developing supervening hyperglycemic accelerations as noted thereof. His glucose levels yesterday ranged from 247 to 419 mg/dL. Today, the glucose level was 224 mg/dL in the morning as noted. LABORATORY DATA: His chemistries showed BUN of 36, sodium 135, potassium 4.4, chloride 99, CO2 27, glucose 232, and creatinine 1.7. ASSESSMENT: This is a 33-year-old male with uncontrolled and decompensated type 1 insulin-dependent diabetes with diabetic microvascular complications for retinopathy, polyneuropathy, and nephropathy at such an early age, indicative of suboptimal metabolic control of his diabetic condition even prior to this admission. His A1c was reported as 8.4% as noted. PLAN OF MANAGEMENT: We will modify his current basal and bolus insulin regimen and increase the NovoLog to 10 units t.i.d., before meals to start today as ordered. We will also increase the basal insulin with Lantus to be given as 24 units subcu at bedtime daily as given. This was actually given last night, so we will increase and titrate his Lantus to 30 units subcu at bedtime daily as given. He was seen today by our diabetic nurse educator, Ms. Ela Maddox and she will reinforce the need for diligent home glucose monitoring and also adjustments of his insulin regimen, as he was being given regular insulin instead of a rapid acting insulin analog, such as Humalog or NovoLog by his medical doctor on the outpatient. We will obtain serial chemistries and supplement accordingly as needed. The imperative need for tighter metabolic control cannot but be overemphasized, especially with a young age and with already in early onset of diabetic microvascular complications as mentioned. He will follow with his medical doctor and his own geologist from the outpatient. We will follow. Esperanza Toscano MD
== END 2018-11-11 12:04 | disposition left against medical advice (07) | DRG 295 ==
LOC: C.ER 06:11 → UNDOADMOB 12:01 → C.9E 12:01 → C.6T 13:07 → C.9E 13:07 → INTOOBSV 19:21 → OBSVTOIN 19:21 → C.9E 11-10 19:21 → C.6T 11-10 19:21 → OBSVTOIN 11-10 19:21
PROVIDERS: ADMIT Family Medicine; ATTEND Family Medicine
DX: E10.649 Type 1 diabetes mellitus with hypoglycemia without coma (principal); E10.43 Type 1 diabetes mellitus with diabetic autonomic (poly)neuropathy; E10.42 Type 1 diabetes mellitus with diabetic polyneuropathy; E10.21 Type 1 diabetes mellitus with diabetic nephropathy; F17.210 Nicotine dependence, cigarettes, uncomplicated; F12.90 Cannabis use, unspecified, uncomplicated; I10 Essential (primary) hypertension; K31.84 Gastroparesis; Z79.4 Long term (current) use of insulin; E10.319 Type 1 diabetes mellitus with unspecified diabetic retinopathy without macular edema